=== PATIENT | male | born 1960 | race Caucasian/White ===

== ENCOUNTER 2018-05-01 12:57 | Inpatient (IN) ==
[2018-05-01] MEDS ORDERED: Morphine Inj 4 MG/ML Vial IV.PUSH ONE ×2 (13:45→14:24)
[2018-05-01 14:17] LABS: Baso % (Auto) 0.4 % (0.0-2.0); Eos # (Auto) 0.1 th/mm3 (0.0-0.4); Eos % (Auto) 1.1 % (0.0-4.0); Hematocrit 41.2 % (39.0-51.0); Hemoglobin 15.4 gm/dL (13.0-17.0); Lymph # (Auto) 2.9 th/mm3 (1.0-4.8); Lymph % (Auto) 21.3 % (9.0-44.0); Mean Corpuscular Hemoglobin 31.4 pg (27.0-34.0); Mean Corpuscular Volume 84.2 fL (80.0-100.0); Mean Platelet Volume 7.8 fL (7.0-11.0); Mono % (Auto) 7.4 % (0.0-8.0); Neut # (Auto) 9.4 th/mm3 (1.8-7.7); Neut % (Auto) 69.8 % (16.0-70.0); Platelet Count 286 th/mm3 (150-450); White Blood Count 13.5 th/mm3 (4.0-11.0)
[2018-05-01 14:22] LABS: Mean Corpuscular HGB Conc 37.3 % (32.0-36.0)
[2018-05-01 14:25] LABS: Activated Partial Thrombo Time 29.6 sec (23.4-31.7); INR 1.1 Ratio
[2018-05-01 14:32] LABS: Calcium 8.8 mg/dL (8.5-10.1); Carbon Dioxide 28.4 meq/L (21.0-32.0); Potassium 3.2 meq/L (3.5-5.1)
[2018-05-01] MEDS ORDERED: HYDROmorphone PF Inj 0.5 MG/0.5 ML Syringe IV.PUSH ONE (14:44)
--- NOTE | 2018-05-01 14:49 | ED ---
HPI General Chief Complaint: Back Pain/Injury Stated Complaint: low back pain Time Seen by Provider: 05/01/18 13:26 Source: patient Limitations: no limitations History of Present Illness HPI Narrative: Patient is a 57-year-old male with history of chronic back pain secondary to disc protrusion, who presents with complaint of worsening back pain for the last 4 days he has had loss of bowel and bladder function. He is also having numbness to the bilateral lower extremities though does have some sensation and has had difficulty walking. The numbness and difficulty walking have been since . He denies any fevers or chills. He denies any recent invasive procedures. He had MRIs back in January that showed diffuse disc disease with impingement on spinal cord but as he was not having neurologic deficits he was not having surgery at that time and pursued conservative management. MD Complaint: Reports back pain Duration: Reports constant Similar Symptoms Previously: Yes Location: Reports lumbar spine and thoracic spine Severity: severe Radiation: Reports none Relieving factors: none Associated symptoms: Reports weakness, numbness and difficulty walking Related Data Home Medications Medication Instructions Recorded Confirmed No Known Home Medications 05/01/18 05/01/18 Allergies Allergy/AdvReac Type Severity Reaction Status Date / Time No Known Allergies Allergy Verified 05/01/18 13:43 Review of Systems ROS: all other systems reviewed are negative [facility] Medical History Medical History Lower back injury (Acute) Surgical History Surgical History History of cervical spinal surgery (Acute) History of lumbar surgery (Acute) Social History Social History Substance History: No History of Abuse Second Hand Smoke Exposure: No Smoking Status: Never smoker How Often Do You Have a Drink Containing Alcohol: Never Recent Travel in [facility] within the Last 8 Weeks: No Recent Out of Country Travel within the Last 8 Weeks: No Immunization History Tetanus Immunization: Unsure Exam Narrative Exam Narrative: GENERAL: Well-appearing male that appears to be in pain SKIN: Focused skin assessment warm/dry. No rashes. Scar to the lower lumbar spine peer HEAD: Atraumatic. Normocephalic. EYES: Pupils equal and round. No scleral icterus. No injection or drainage. ENT: No nasal bleeding or discharge. Mucous membranes pink and moist. NECK: Trachea midline. No JVD. CARDIOVASCULAR: Regular rate and rhythm. No murmur appreciated. Intact and equal peripheral pulses RESPIRATORY: No accessory muscle use. Clear to auscultation. Breath sounds equal bilaterally. GASTROINTESTINAL: Abdomen soft, non-tender, nondistended. Hepatic and splenic margins not palpable. MUSCULOSKELETAL: No obvious deformities. No clubbing. No cyanosis. No edema. T and L-spine tenderness. NEUROLOGICAL: Awake and alert. No obvious cranial nerve deficits. Normal speech. Weakness and numbness to the bilateral lower extremities. PSYCHIATRIC: Appropriate mood and affect; insight and judgment normal. Course Initial Documented Vital Signs Temperature 97.3 F L 05/01/18 13:13 Pulse Rate 118 H 05/01/18 13:13 Respiratory Rate 17 05/01/18 13:13 Blood Pressure 167/83 H 05/01/18 13:13 Pulse Oximetry 98 05/01/18 13:13 Last Documented Vital Signs Temperature 97.8 F 05/02/18 08:00 Pulse Rate 75 05/02/18 08:00 Respiratory Rate 05/02/18 08:00 Blood Pressure 137/65 05/02/18 08:00 Pulse Oximetry 94 L 05/02/18 08:00 Sign Out Sign Out Data: Patient Sign Out occurred on 05/01/18 at 15:04. Patient's care was discussed, and care was transferred from Brigida Vallejo MD to John Thompson MD. Sign Out Comment: MRI pending. Will need NSGY. I made Dr wasserman aware. Last updated by Brigida Vallejo MD at 05/01/18 14:56 Post-Handoff Eval: The patient had an MRI of the cervical spine, thoracic spine, and lumbar spine performed. I discussed the patient with the on-call neurosurgeon who evaluated the patient at bedside, Dr. Wasserman, who recommends the patient be admitted to the medical service, n.p.o. after midnight on for planned surgery on the cervical and lumbar region. I discussed the patient with Dr. Goodwin who agrees with admission. Medical Decision Making MDM Narrative Medical decision making narrative: Patient is a 57-year-old male who presents with worsening of his chronic back pain. He is having neurologic deficits. On arrival I spoke with Dr. Wasserman, neurosurgeon on-call, who is aware of the patient. MRIs have been ordered stat. Patient will likely be admitted. Results pending at time of checkout. Medical Screen Exam Complete: Yes Emergency Medical Condition: Yes Medical Records Medical records reviewed: Yes I reviewed the patient's medical records. Lab Data Lab results reviewed: Yes I reviewed the patient's lab results. Result diagrams: 05/01/18 14:05 05/02/18 04:48 Lab Results 05/01/18 05/01/18 05/01/18 Range/Units 14:05 14:05 14:05 WBC 13.5 H (4.0-11.0) th/mm3 RBC 4.90 (4.50-5.90) mil/mm3 Hgb 15.4 (13.0-17.0) gm/dL Hct 41.2 (39.0-51.0) % MCV 84.2 (80.0-100.0) fL MCH 31.4 (27.0-34.0) pg MCHC 37.3 H (32.0-36.0) % RDW 14.0 (11.6-17.2) % Plt Count 286 (150-450) th/mm3 MPV 7.8 (7.0-11.0) fL Prelim Diff (Auto) Slide review pending Neut % (Auto) 69.8 (16.0-70.0) % Lymph % (Auto) 21.3 (9.0-44.0) % [place] % (Auto) 7.4 (0.0-8.0) % Eos % (Auto) 1.1 (0.0-4.0) % Baso % (Auto) 0.4 (0.0-2.0) % Neut # (Auto) 9.4 H (1.8-7.7) th/mm3 Lymph # (Auto) 2.9 (1.0-4.8) th/mm3 [place] # (Auto) 1.0 H (0.0-0.9) th/mm3 Eos # (Auto) 0.1 (0.0-0.4) th/mm3 Baso # (Auto) 0.0 (0.0-0.2) th/mm3 WBC Differential . Diff Scan Auto diff confirmed Differential Comment . PT 11.0 (9.8-11.6) sec INR 1.1 Ratio APTT 29.6 (23.4-31.7) sec Sodium 138 (136-145) meq/L Potassium 3.2 L (3.5-5.1) meq/L Chloride 102 (98-107) meq/L Carbon Dioxide 28.4 (21.0-32.0) meq/L Anion Gap 8 (5-15) meq/L BUN 17 (7-18) mg/dL Creatinine 1.12 (0.60-1.30) mg/dL Estimated GFR 68 L (>89) mL/min Random Glucose 109 H (74-106) mg/dL Calcium 8.8 (8.5-10.1) mg/dL Magnesium (1.5-2.5) mg/dL Urine Color (Yellw/Straw) Urine Clarity (Clear) Urine pH (5.0-8.5) Ur Specific [place] (1.002-1.035) Urine Protein (Neg-Trace) mg/dL Urine Glucose (UA) (Negative) mg/dL Urine Ketones (Negative) mg/dL Urine Occult Blood (Negative) Urine Nitrate (Negative) Urine Bilirubin (Negative) Urine Urobilinogen (Less than 2) mg/dL Ur Leukocyte Esterase (Negative) Urine RBC (0-3) /hpf Urine WBC (0-5) /hpf Ur Squamous Epith Cells (0-5) /hpf Micro UA Comment Ur Microscopic Review Urine Culture Comments 05/01/18 05/02/18 Range/Units 21:00 04:48 WBC (4.0-11.0) th/mm3 RBC (4.50-5.90) mil/mm3 Hgb (13.0-17.0) gm/dL Hct (39.0-51.0) % MCV (80.0-100.0) fL MCH (27.0-34.0) pg MCHC (32.0-36.0) % RDW (11.6-17.2) % Plt Count (150-450) th/mm3 MPV (7.0-11.0) fL Prelim Diff (Auto) Neut % (Auto) (16.0-70.0) % Lymph % (Auto) (9.0-44.0) % [place] % (Auto) (0.0-8.0) % Eos % (Auto) (0.0-4.0) % Baso % (Auto) (0.0-2.0) % Neut # (Auto) (1.8-7.7) th/mm3 Lymph # (Auto) (1.0-4.8) th/mm3 [place] # (Auto) (0.0-0.9) th/mm3 Eos # (Auto) (0.0-0.4) th/mm3 Baso # (Auto) (0.0-0.2) th/mm3 WBC Differential Diff Scan Differential Comment PT (9.8-11.6) sec INR Ratio APTT (23.4-31.7) sec Sodium 137 (136-145) meq/L Potassium 3.2 L (3.5-5.1) meq/L Chloride 100 (98-107) meq/L Carbon Dioxide 29.3 (21.0-32.0) meq/L Anion Gap 8 (5-15) meq/L BUN 17 (7-18) mg/dL Creatinine 1.02 (0.60-1.30) mg/dL Estimated GFR 75 L (>89) mL/min Random Glucose 120 H (74-106) mg/dL Calcium 8.8 (8.5-10.1) mg/dL Magnesium 2.2 (1.5-2.5) mg/dL Urine Color Straw (Yellw/Straw) Urine Clarity Clear (Clear) Urine pH 7.0 (5.0-8.5) Ur Specific [place] 1.004 (1.002-1.035) Urine Protein Negative (Neg-Trace) mg/dL Urine Glucose (UA) Negative (Negative) mg/dL Urine Ketones Trace H (Negative) mg/dL Urine Occult Blood Small H (Negative) Urine Nitrate Negative (Negative) Urine Bilirubin Negative (Negative) Urine Urobilinogen Less than 2 (Less than 2) mg/dL Ur Leukocyte Esterase Negative (Negative) Urine RBC Less than 1 (0-3) /hpf Urine WBC Less than 1 (0-5) /hpf Ur Squamous Epith Cells 2 (0-5) /hpf Micro UA Comment Culture not ind Ur Microscopic Review Not Reportable Urine Culture Comments Culture not ind Imaging Data Radiologist's impression: Cervical Spine X-Ray 05/01/18 00:00 CONCLUSION: 1. Status post solid anterior fusion at the C4-5 level. 2. Bridging anterior osteophyte C4 level. Lumbar Spine X-Ray 05/01/18 00:00 CONCLUSION: No abnormal mobility. Cervical Spine MRI 05/01/18 13:43 CONCLUSION: 1. Significant thecal sac stenosis and flattening of the spinal cord at C5-6. 2. Slight thecal sac stenosis C3-4 to C7. 3. Neural foraminal compromise bilateral C5-6 and C6-C7. Thoracic Spine MRI 05/01/18 13:43 CONCLUSION: 1. Mild degenerative disc changes with no evidence of disc protrusion or spinal stenosis. Lumbar Spine MRI 05/01/18 13:44 CONCLUSION: 1. Slight overall thecal sac stenosis L1-2. 2. Moderate overall thecal sac stenosis L2-3 and L3-4. 3. Significant thecal sac stenosis L4-5. 4. Bilateral neural foraminal compromise L2-3, L3-4, L4-5, L5-S1. Discharge Plan Discharge Disposition Patient Disposition: ED Admit(ED Internal Use Only) Discharge Condition Condition: Stable Discharge Order Discharge Orders: ED Use Only Admit Order (Routine); Ordered 05/01/18 Ordered By: John Thompson Discharge Details Diagnosis: Intractable back pain Physicians Team ED Provider: John Thompson Primary Care Provider: Lazaro Lowry Attending Provider: Jimenez Goodwin Other Providers: Madan Wasserman Status ED Status: Left Department Discharge Information Discharge Date/Time: 05/01/18 22:21
[2018-05-01] MEDS ORDERED: Potassium Chlor 20 mEq Premix 20 MEQ/100 ML PIGGYBACK IV.SIG ONE (17:00)
--- NOTE | 2018-05-01 17:58 | MR ---
EXAM DATE: 05/01/2018 5:48 PM EST AGE/SEX: 57 years / Male INDICATIONS: Pain. CLINICAL DATA: This is the patient's initial encounter. Patient reports that signs and symptoms have been present for 1 week and indicates a pain score of 10/10. MEDICAL/SURGICAL HISTORY: None. . Cervical and lumbar sx COMPARISON: No prior exams available for comparison. TECHNIQUE: Multiplanar, multisequence MRI of the lumbar spine was performed without contrast. Patie nt was scanned in a sitting position; neutral, flexion, and extension scans were performed in the sa gittal plane. FINDINGS: The most caudal-appearing lumbar vertebra is numbered as L5. The marrow signal appears intact. No si gnificant compression deformities, spondylolisis, or spondylolesthesis is seen. Approximate 5.[address] is present in the right kidney. L1-L2: Central disc herniation is present indents the anterior portion of the thecal sac causes mild overall thecal sac stenosis. L2-L3: There is slight neural foramina compromise bilaterally due to bulging disc and hypertrophic c hanges. There is moderate overall thecal sac stenosis due to central disc/osteophyte complex and hypertrophic changes. L3-L4: There is slight neural foramina compromise bilaterally due to bulging disc and hypertrophic c hanges. There is moderate overall thecal sac stenosis due to central disc bulge and hypertrophic changes. Th ere is slight bilateral facet arthrosis. L4-L5: There is slight neural foramina compromise bilaterally due to bulging disc and hypertrophic c hanges. There is moderate to severe overall thecal sac stenosis due to central disc/osteophyte complex and hy pertrophic changes. There is moderate bilateral facet arthrosis. L5-S1: There is moderate neural foramina compromise bilaterally due to bulging disc and hypertrophic changes. There is significant facet arthrosis at this level. There is anterior extradural impression and effacement of the anterior CSF space due to bulging disc and hypertrophic changes, however overall no significant thecal sac stenosis is seen. CONCLUSION: 1. Slight overall thecal sac stenosis L1-2. 2. Moderate overall thecal sac stenosis L2-3 and L3-4. 3. Significant thecal sac stenosis L4-5. 4. Bilateral neural foraminal compromise L2-3, L3-4, L4-5, L5-S1. Electronically signed by: Lion Valentine MD Board Certified Radiologist 05/01/2018 5:57 PM EST
--- NOTE | 2018-05-01 18:05 | MR ---
EXAM DATE: 05/01/2018 5:46 PM EST AGE/SEX: 57 years / Male INDICATIONS: . Degeneration disc CLINICAL DATA: This is the patient's initial encounter. Patient reports that signs and symptoms have been present for 1 week and indicates a pain score of 10/10. MEDICAL/SURGICAL HISTORY: None. . Cervical and Lumbar sx COMPARISON: No prior exams available for comparison. TECHNIQUE: Multiplanar, multisequence MRI examination of the cervical spine was performed without co ntrast. FINDINGS: The marrow signal appears intact, and the spinal cord appears intact for technique. Surgical screws traverse the bodies of C4 and C5 with a plate placed anteriorly and evidence for a nterior fusion and fusion appears solid. C2-C3: No appreciable compromise to the thecal sac, exiting nerve roots are seen. The neural foramin a are patent bilaterally. No appreciable thecal sac stenosis is seen. C3-C4: Moderate degenerative changes are present in the disc space and facets. There is slight overall thecal sac stenosis due to bulging disc/osteophyte complex and hypertrophic c hanges, however overall no significant thecal sac stenosis is seen. C4-C5: No appreciable compromise to the thecal sac, exiting nerve roots are seen. The neural foramin a are patent bilaterally. No appreciable thecal sac stenosis is seen. Hypertrophic changes indenting the anterior portion of the thecal sac slightly compromising the anterior CSF space without any signi ficant thecal sac stenosis. C5-C6: There is significant overall thecal sac stenosis with flattening of the spinal cord due to bu lging disc/central disc osteophyte complex and hypertrophic changes. There is moderate neural foramina compromise bilaterally due to bulging disc and hypertrophic changes . C6-C7: There is slight overall thecal sac stenosis without any cord compromise due to central disc/ osteophyte complex and hypertrophic changes. Significant degenerative changes are present in the disc space and facets. There is slight neural foramina compromise bilaterally due to bulging disc and hypertrophic changes. C7-T1: No appreciable compromise to the thecal sac, exiting nerve roots are seen. The neural forami na are patent bilaterally. No appreciable thecal sac stenosis is seen. CONCLUSION: 1. Significant thecal sac stenosis and flattening of the spinal cord at C5-6. 2. Slight thecal sac stenosis C3-4 to C7. 3. Neural foraminal compromise bilateral C5-6 and C6-C7. Electronically signed by: Lion Valentine MD Board Certified Radiologist 05/01/2018 6:04 PM EST
--- NOTE | 2018-05-01 18:16 | MR ---
EXAM DATE: 05/01/2018 6:08 PM EST AGE/SEX: 57 years / Male INDICATIONS: Neck and back pain. CLINICAL DATA: This is the patient's initial encounter. Patient reports that signs and symptoms have been present for 1 week and indicates a pain score of 10/10. MEDICAL/SURGICAL HISTORY: None. . Cervical and Lumbar COMPARISON: [facility] [place], MR CERVICAL SPINE W/O CONTRAST, 05/01/2018. . TECHNIQUE: Multiplanar, multisequence MRI of the thoracic spine was performed. FINDINGS: Vertebrae: Normal vertebral body height. Homogeneous marrow signal for cavernous hemangiomas in the T4, T7 and T8 vertebral bodies.. Alignment: Normal. On Discs: There are mild degenerative disc changes with anterior spurring and ryann iccation. High signal is noted in the disc at the T11-12 level appears benign. Cord: Normal position and configuration. T1-T2: The thecal sac has a normal diameter. No evidence of disc bulge or protrusion. T2-T3: The thecal sac has a normal diameter. No evidence of disc bulge or protrusion. T3-T4: The thecal sac has a normal diameter. No evidence of disc bulge or protrusion. T4-T5: The thecal sac has a normal diameter. No evidence of disc bulge or protrusion. T5-T6: The thecal sac has a normal diameter. No evidence of disc bulge or protrusion. T6-T7: The thecal sac has a normal diameter. No evidence of disc bulge or protrusion. T7-T8: The thecal sac has a normal diameter. No evidence of disc bulge or protrusion. T8-T9: The thecal sac has a normal diameter. No evidence of disc bulge or protrusion. T9-T10: The thecal sac has a normal diameter. No evidence of disc bulge or protrusion. T10-T11: The thecal sac has a normal diameter. No evidence of disc bulge or protrusion. T11-T12: The thecal sac has a normal diameter. No evidence of disc bulge or protrusion. T12-L1: The thecal sac has a normal diameter. No evidence of disc bulge or protrusion. CONCLUSION: 1. Mild degenerative disc changes with no evidence of disc protrusion or spinal stenosis. Electronically signed by: Seymour Chan MD Board Certified Radiologist 05/01/2018 6:15 PM EST
--- NOTE | 2018-05-01 18:20 | XR ---
EXAM DATE: 05/01/2018 6:16 PM EST AGE/SEX: 57 years / Male INDICATIONS: Post ACDF. . CLINICAL DATA: This is the patient's initial encounter. Patient reports that signs and symptoms have been present for 7 - 11 months and indicates a pain score of 10/10. MEDICAL/SURGICAL HISTORY: None. None. COMPARISON: No prior exams available for comparison. FINDINGS: AP and lateral views of the cervical spine were obtained as well as odontoid views and demonstrate pa tient is status post anterior cervical fusion at the C4-5 level with anterior screw plate fixation de vice. There is bone grafting material in the interspace which is well incorporated. There is a large area of bridging osteophyte along the anterior longitudinal ligament at the C3-4 level. There is ossi fication anterior longitudinal ligament at the C6-7 level as well. There is no acute fracture or xochitl lignment. The dens is intact. CONCLUSION: 1. Status post solid anterior fusion at the C4-5 level. 2. Bridging anterior osteophyte C4 level. Electronically signed by: Seymour Chan MD Board Certified Radiologist 05/01/2018 6:18 PM EST
--- NOTE | 2018-05-01 18:23 | XR ---
EXAM DATE: 05/01/2018 6:19 PM EST AGE/SEX: 57 years / Male INDICATIONS: Lower back pain, old injury, evaluate mobility. CLINICAL DATA: This is the patient's initial encounter. Patient reports that signs and symptoms have been present for 3 months and indicates a pain score of 10/10. MEDICAL/SURGICAL HISTORY: None. None. COMPARISON: [facility] [place], MR LUMBAR SPINE W/O CONTRAST, 05/01/2018. . FINDINGS: Multiple lateral views of the lumbar spine were obtained with flexion-extension positioning. There ar e diffuse mild hypertrophic changes with anterior osteophyte formation. The disc space heights are we ll preserved. There is anatomic. Patient achieved only limited flexion and extension and there is no abnormal mobility. Degenerative changes are noted involving the lower facet joints. There is mild ost eopenia. CONCLUSION: No abnormal mobility. Electronically signed by: Seymour Chan MD Board Certified Radiologist 05/01/2018 6:22 PM EST
--- NOTE | 2018-05-01 18:41 | P.CONNS ---
History of Present Illness Service: ED Primary Care Provider: Lazaro Lowry Chief Complaint: Back pain History of Present Illness: 57yoM s/p C4/5 [place]CD[address] [place] [address] Underwood. Has had back pain since the accident at that time that lead to that surgery. He has had worsening back pain over the past several months (with MRI obtained in January) and over the past week, has had some episodes where he feels he has been leaking urine. Uses a walker and feels worse when he is sitting. Does not complain of neck pain and has had weakness in the arms for several years. Came to ED with complaints of bladder control. PMFSH - History History Provided By: Patient - Medical History Medical History: Medical History (Last Reviewed 05/01/18 @ 14:47 by Brigida Vallejo MD) Lower back injury - Surgical History Surgical History: Surgical History (Last Reviewed 05/01/18 @ 14:47 by Brigida Vallejo MD) History of cervical spinal surgery History of lumbar surgery - Tobacco History Smoking Status: Never smoker - Alcohol History How Often Do You Have a Drink Containing Alcohol: Never - Substance Use History Substance History: No History of Abuse - Travel History Recent Travel in the [place] Within the Last 8 Weeks: No Recent Travel Out of the Country Within the Last 8 Weeks: No - Immunization History Tetanus Immunization: Unsure Medications and Allergies Active Medications: Active Medications Potassium Chloride (Kcl 20 Meq Premix Inj) 20 meq in 100 mls @ 50 mls/hr IV.SIG ONCE ONE Stop: 05/01/18 18:59 Allergies Allergy/AdvReac Type Severity Reaction Status Date / Time No Known Allergies Allergy Verified 05/01/18 13:43 Home Medications Medication Instructions Recorded Confirmed Type No Known Home Medications 05/01/18 05/01/18 History Exam Vital signs: Vital Signs 05/01/18 13:13 05/01/18 13:16 Temperature 97.3 F L Pulse Rate 118 H 100 H Respiratory Rate 17 18 Blood Pressure 167/83 H 156/118 H Pulse Oximetry 98 100 Intake & Output 04/30/18 05/01/18 05/01/18 18:59 06:59 18:59 Weight 128.367 kg Narrative: A&O x 3 CN II-XII intact Motor 4/5 in UE bilaterally and 4/5 in LE bilaterally Reflexes 3+ upper and lower Babinski/Miller equivocal, No clonus Painful to dorsiflex both his feet Results - Laboratory Findings CBC and BMP: 05/01/18 14:05 05/01/18 14:05 Abnormal lab findings: Abnormal Labs 05/01/18 05/01/18 14:05 14:05 WBC 13.5 H MCHC 37.3 H Neut # (Auto) 9.4 H [place] # (Auto) 1.0 H Potassium 3.2 L Estimated GFR 68 L Random Glucose 109 H Assessment and Plan - Plan MRI C-spine: tight stenosis adjacent to prior fusion at C5/6 level posteriorly and anteriorly with cord signal change 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 Plan: Sunday05/03/18 OR for posterior cervical decompression and fusion C5/6 + lumbar decompression L2/3, L3/4, and L4/5 laminectomies Neuromonitoring, prone in pins Patient understands risks of surgery and wishes to proceed. Admit for Pain control-- appreciate help of hospitalist service [place] J collar ordered-- patient may wear if it makes him more comfortable but this is not necessary Patient will need likely need rehab after surgery / PT/OT, may ambulate as tolerated with assistance before and afterward
[2018-05-01] MEDS ORDERED: Bisacodyl 10 MG Supp RECTAL PRN (19:13)
[2018-05-01] MEDS ORDERED: Temazepam 15 MG Capsule PO PRN (19:13)
--- NOTE | 2018-05-01 19:25 | P.HPIM ---
History of Present Illness Primary Care Physician: Lazaro Lowry History of Present Illness: Pt is 57 yo with hx ACDF c5/6 and lumbar surgery. He has had progressive lower extremity weakness and now some urine incontinence and pain. MRI c and L spine in ED show concern for cervical myelopathy and severe lumbar stenosis. Seen by NSG in ED and pt to be admitted for surgical procedures on Sunday. Pt denies any cardiac or pulmonary diseases. PMH: cervical acdf lumbar surgery finger tip amputation. SH; no etoh/tob FH: NC Allergy. Pcn. Home meds. denies any prescribed or OTC meds. Diagnosis (1) Cervical myelopathy: (2) Lumbar stenosis: Medications and Allergies Allergies Allergy/AdvReac Type Severity Reaction Status Date / Time No Known Allergies Allergy Verified 05/01/18 13:43 Home Medications Medication Instructions Recorded Confirmed Type No Known Home Medications 05/01/18 05/01/18 History Active Medications: Active Medications Al Hydroxide/Mg Hydroxide (Milk Of Magnesia Liq) 30 ml PO Q12H PRN PRN Reason: Mild Constipation Bisacodyl (Dulcolax Supp) 10 mg RECTAL DAILY PRN PRN Reason: SEVERE CONSITIPATION Hydromorphone HCl (Dilaudid Pf Inj) 1 mg IV.PUSH Q4H PRN PRN Reason: pain 5-10 Lactulose (Lactulose Liq) 30 ml PO DAILY PRN PRN Reason: SEVERE CONSITIPATION Ondansetron HCl (Zofran Inj) 4 mg IV.PUSH Q6H PRN PRN Reason: NAUSEA OR VOMITING Sennosides (Senokot) 17.2 mg PO Q12H PRN PRN Reason: Moderate Constipation Sodium Chloride (Ns Flush) 2 ml IV.FLUSH BID TANA Sodium Chloride (Ns Flush) 2 ml IV.FLUSH PRN PRN PRN Reason: FLUSH AFTER USING IV ACCESS Temazepam (Restoril) 15 mg PO HS PRN PRN Reason: INSOMNIA Physical Exam Vital signs: Last Vital Signs Temp 97.3 F L 05/01/18 13:13 Pulse 81 05/01/18 18:59 Resp 18 05/01/18 18:59 BP 168/72 H 05/01/18 18:59 Pulse Ox 100 05/01/18 18:59 Narrative: sitting on edge bed heart reg lung cta abd s/nt ext no edema Results Labs CBC & Chem 7: 05/01/18 14:05 05/01/18 14:05 Caprini VTE Risk Assessment Caprini VTE Risk Assessment: Moderate/High Risk (score >= 2) Caprini Risk Assessment Model: Point Value = 1 Point Value = 2 Point Value = 3 Point Value = 5 Age 41-60 Minor surgery BMI > 25 kg/m2 Swollen legs Varicose veins or History of unexplained or recurrent spontaneous Oral contraceptives or hormone replacement Sepsis (< 1 month) Serious lung disease, including pneumonia (< 1 month) Abnormal pulmonary function Acute myocardial infarction Congestive heart failure (< 1 month) History of inflammatory bowel disease Medical patient at bed rest Age 61-74 Arthroscopic surgery Major open surgery (> 45 min) Laparoscopic surgery (> 45 min) Malignancy Confined to bed (> 72 hours) Immobilizing plaster cast Central venous access Age >= 75 History of VTE Family history of VTE Factor V Leiden Prothrombin [id number] Lupus anticoagulant Anticardiolipin antibodies Elevated serum homocysteine Heparin-induced thrombocytopenia Other congenital or acquired thrombophilia Stroke (< 1 month) Elective arthroplasty Hip, pelvis, or leg fracture Acute spinal cord injury (< 1 month) Prophylaxis Regimen: Total Risk Factor Score Risk Level Prophylaxis Regimen 0-1 Low Early ambulation 2 Moderate Order ONE of the following: *Sequential Compression Device (SCD) *Heparin 5000 units SQ BID 3-4 Higher Order ONE of the following medications: *Heparin 5000 units SQ TID *Enoxaparin/Lovenox 40 mg SQ daily (WT < 150 kg, CrCl > 30 mL/min) *Enoxaparin/Lovenox 30 mg SQ daily (WT < 150 kg, CrCl > 10-29 mL/min) *Enoxaparin/Lovenox 30 mg SQ BID (WT < 150 kg, CrCl > 30 mL/min) AND/OR *Sequential Compression Device (SCD) 5 or more Highest Order ONE of the following medications: *Heparin 5000 units SQ TID (Preferred with Epidurals) *Enoxaparin/Lovenox 40 mg SQ daily (WT < 150 kg, CrCl > 30 mL/min) *Enoxaparin/Lovenox 30 mg SQ daily (WT < 150 kg, CrCl > 10-29 mL/min) *Enoxaparin/Lovenox 30 mg SQ BID (WT < 150 kg, CrCl > 30 mL/min) AND *Sequential Compression Device (SCD) Assessment and Plan Assessment (1) Cervical myelopathy: Code(s): G95.9 - Disease of spinal cord, unspecified Status: Acute (2) Lumbar stenosis: Code(s): M48.061 - Spinal stenosis, lumbar region without neurogenic claudication Status: Acute Plan 1. cervical myelopathy 2. severe lumbar spinal stenosis Discussed with NSG dr Schwartz. plan to OR on Sunday. cervical decompression/fusion c5/6 and laminectomies from L2-5 dvt prophylaxis prn pain med control PT evaluation plan for rehab after hospitalizaton preop ekg pending. f/u labs. pt denies any cardiac dz or any pulmonary dz.
[2018-05-01] MEDS: HYDROmorphone PF Inj 2 MG/ML Vial IV.PUSH PRN (20:38)
[2018-05-01 21:19] LABS: Bilirubin,Urine Negative (Negative); Clarity,Urine Clear (Clear); Color,Urine Straw (Yellw/Straw); Glucose,Urine (UA) Negative (Negative); Leukocyte Esterase,Urine Negative (Negative); Nitrite,Urine Negative (Negative); Specific Gravity,Urine 1.004 (1.002-1.035); Squamous Epithelial Cell,Urine 2 /hpf (0-5)
[2018-05-02 05:35] LABS: Calcium 8.8 mg/dL (8.5-10.1); Carbon Dioxide 29.3 meq/L (21.0-32.0); Magnesium 2.2 mg/dL (1.5-2.5); Potassium 3.2 meq/L (3.5-5.1)
[2018-05-02] MEDS: HYDROmorphone PF Inj 2 MG/ML Vial IV.PUSH PRN ×3 (06:08→20:59)
[2018-05-02] MEDS ORDERED: Vancomycin Inj 1,000 MG in Sodium Chlor 0.9% Inj 250 ML IV.SIG SCH (10:19)
--- NOTE | 2018-05-02 11:07 | P.PNNS ---
Subjective Interval history: Pain stable. Physical Exam Vital signs: Vital Signs 05/01/18 13:13 05/01/18 13:16 05/01/18 18:59 Temperature 97.3 F L Pulse Rate 118 H 100 H 81 Respiratory Rate 17 18 18 Blood Pressure 167/83 H 156/118 H 168/72 H Pulse Oximetry 98 100 100 05/01/18 19:00 05/01/18 21:00 05/01/18 21:20 Temperature Pulse Rate 79 83 Respiratory Rate 18 18 18 Blood Pressure 162/85 H 130/67 Pulse Oximetry 99 05/02/18 00:00 05/02/18 08:00 Temperature 97.4 F L 97.8 F Pulse Rate 90 75 Respiratory Rate 18 19 Blood Pressure 142/80 H 137/65 Pulse Oximetry 95 94 L Intake & Output 05/01/18 05/02/18 05/02/18 18:59 06:59 18:59 Intake Total 550 / 550 Balance 550 / 550 Weight 128.367 kg 130.3 kg Intake: IV 100 / 100 KCl 20 mEq Premix Inj 20 meq In 100 / 100 100 ml @ 50 mls/hr IV.SIG ONCE ONE Rx#:[id number] Oral 450 / 450 Other: # Voids 2 Date of Last Bowel Movement 04/30/18 Weight On Admission 130.3 kg Narrative: A&O x 3 CN II-XII intact Motor 4/5 in UE bilaterally and 4/5 in LE bilaterally Reflexes 3+ upper and lower Babinski/Miller equivocal, No clonus Painful to dorsiflex both his feet Assessment and Plan - Plan MRI C-spine: tight stenosis adjacent to prior fusion at C5/6 level posteriorly and anteriorly with cord signal change 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 Plan: Sunday05/03/18 OR for posterior cervical decompression and fusion C5/6 + lumbar decompression L2/3, L3/4, and L4/5 laminectomies Neuromonitoring, prone in pins Patient understands risks of surgery and wishes to proceed. Consent signed orders placed for npo, hibiclens bath, vanco OCTOR. Admit for Pain control-- appreciate help of hospitalist service -- appears stable and comfortable [place] J collar ordered-- patient may wear if it makes him more comfortable but this is not necessary -- appears not helping tremendously Patient will need likely need rehab after surgery / PT/OT, may ambulate as tolerated with assistance before and afterward
--- NOTE | 2018-05-02 11:17 | P.PNIM ---
Subjective Interval history: doing ok. no complaints Physical Exam Vital signs: Last Vital Signs Temp 97.8 F 05/02/18 08:00 Pulse 75 05/02/18 08:00 Resp 19 05/02/18 08:00 BP 137/65 05/02/18 08:00 Pulse Ox 94 L 05/02/18 08:00 Narrative: heart reg lung cta abd s/nt ext no edema Results Labs CBC & Chem 7: 05/01/18 14:05 05/02/18 04:48 Assessment and Plan Assessment (1) Cervical myelopathy: Code(s): G95.9 - Disease of spinal cord, unspecified Status: Acute (2) Lumbar stenosis: Code(s): M48.061 - Spinal stenosis, lumbar region without neurogenic claudication Status: Acute Plan 1. cervical myelopathy 2. severe lumbar spinal stenosis pt denies any cardiac dz or any pulmonary dz. Discussed with NSG dr Schwartz. plan to OR on Sunday. cervical decompression/fusion c5/6 and laminectomies from L2-5 dvt prophylaxis prn pain med control PT evaluation plan for rehab after hospitalizaton no medical contraindication to proceeding to OR as planned. Progress Note: Quality VTE Deep Vein Thrombosis/Pulmonary Embolism Present on Admission: No
[2018-05-02] MEDS ORDERED: Potassium Chloride 10 MEQ ER Capsule PO ONE (12:00)
--- NOTE | 2018-05-02 16:12 | ECG ---
Date Performed: 05/02/2018 Time Performed: 06:04:26 PTAGE: 57 years EKG: Sinus rhythm NORMAL ECG NO PREVIOUS TRACING DOCTOR: Raman Marinelli Interpretating Date/Time 05/02/2018 16:10:07
[2018-05-02] MEDS ORDERED: Chlorhexidine 4% Topical 120 APPLIC/120 ML Bottle TOPICAL ONE (20:00)
[2018-05-03] MEDS: HYDROmorphone PF Inj 2 MG/ML Vial IV.PUSH PRN ×2 (00:47→04:49)
[2018-05-03] MEDS ORDERED: Bupivacaine/Epinephrine 0.5% Inj 50 ML Vial ONE (06:59)
[2018-05-03] MEDS ORDERED: Thrombin Topical Soln 5,000 UNIT Vial TOPICAL ONE (07:00)
[2018-05-03] MEDS ORDERED: Lidocaine 1% Inj 50 ML Vial ONE (07:00)
[2018-05-03] MEDS ORDERED: Gelatin Size 100 Topical Foam ONE ×3 (07:00→08:06)
[2018-05-03] MEDS ORDERED: Propofol Inj 500 MG/50 ML Vial ONE ×2 (08:50→12:02)
[2018-05-03] MEDS ORDERED: fentaNYL Citrate Inj 100 MCG/2 ML Ampul ONE (13:52)
[2018-05-03] MEDS ORDERED: *morphine SULFATE 4 MG/ML PERIprocedure ONLY ONE ×2 (14:06→14:28)
[2018-05-03] MEDS ORDERED: Naloxone Inj 0.4 MG/ML Vial IV.PUSH PRN (14:09)
[2018-05-03 14:47] LABS: Baso % (Auto) 0.2 % (0.0-2.0); Hematocrit 34.5 % (39.0-51.0); Hemoglobin 12.2 gm/dL (13.0-17.0); Lymph # (Auto) 0.8 th/mm3 (1.0-4.8); Lymph % (Auto) 5.9 % (9.0-44.0); Mean Corpuscular HGB Conc 35.4 % (32.0-36.0); Mean Corpuscular Hemoglobin 30.6 pg (27.0-34.0); Mean Corpuscular Volume 86.2 fL (80.0-100.0); Mean Platelet Volume 7.6 fL (7.0-11.0); Mono # (Auto) 0.3 th/mm3 (0.0-0.9); Mono % (Auto) 2.3 % (0.0-8.0); Neut # (Auto) 12.6 th/mm3 (1.8-7.7); Neut % (Auto) 91.6 % (16.0-70.0); Platelet Count 225 th/mm3 (150-450); White Blood Count 13.7 th/mm3 (4.0-11.0)
[2018-05-03] MEDS ORDERED: Morphine Inj 30 MG/30 ML PCA.VIAL PCA ONE (14:50)
[2018-05-03] MEDS: Morphine Inj 30 MG/30 ML PCA.VIAL PCA PRN (15:05)
--- NOTE | 2018-05-03 15:22 | P.OP ---
- Preoperative Diagnosis (1) Cervical myelopathy - Postoperative Diagnosis (1) Cervical myelopathy Date of procedure: 05/03/18 Procedure: C3-7 Laminectomy C3-T1 posterior spinal fusion C3, C4, C5, C6 lateral mass screws 3.5mm x 12mm T1 4.0mm x 28 x 2 Implants: [employer] Anesthesia: GETA Surgeon: Madan Schwartz MD Order Control Clerk Blood Bank: Raul Brown MD of Neurosurgery Two staff surgeons were required due to complexity of the case and the need to expedite surgery. Estimated blood loss (mL): 500 Operation and Findings: Indications: 57yoM with progressive difficulty ambulating and tight cervical stenosis with myelopathy, prior C4/5 ACDF 1998. Decompression and fusion is indicated. Description of Procedure: Patient was brought to main OR and the procedure was done under general anesthesia. Baseline SSEP were taken prior to flip and maintained throughout the case. Collar was placed and the patient was placed in Kelly pins, then gently rolled prone and fixated with all pressure points padded. Midline of cervical spine was clipped, then prepped and draped in the usual sterile fashion. Fluoroscopy was used to plan an incsion from C3 to T1. This was infiltrated with local, then opened sharply with subperiosteal dissection using monopolar cautery to expose C3 to T1 bilaterally. T1 pedicle screws were placed using drill, tap, method of 4.0 x 28mm and fluoroscopic guidance. Bone edges eburnated, then lateral mass screws placed at C3, C4, C5 and C6 bilaterally using 3.5 x 12mm screws x 8. These were connected with 110mm rods which were bent to lordosis and secured with final set screws and torque tightened. Laminectomy performed from C7 to C3 using drill and punch rongeurs. Thecal sac appeared decompressed. Autograft and allograft placed along the rods laterally. Thrombin gelfoam and floseal placed over the exposed dura to control epidural bleeding. Wound irrigated with bacitracin irrigation prior to closure and a 7-portuguese drain placed and secured with nylon. Wound closed in layers 0 Vicyrl for deep layers and interrupted 2-0 and 3-0 Vicryl for subcutaneous, with rishi for skin. Sterile dressings applied. Patient returned supine, taken out of pins, extubated and taken to recovery in stable condition, moving all extremities with baseline strength. There were no periprocedural complications, all sponge and needle counts were correct. Dr. Schwartz was present and scrubbed for the entire procedure. Dr. Brown was scrubbed for the joy portions from dissection, all instrumentation and decompression to beginning of closure. Two staff surgeons were required due to complexity of the case and the need to expedite operating time. EBL 500cc.
--- NOTE | 2018-05-03 16:02 | XR ---
EXAM DATE: 05/03/2018 3:58 PM EST AGE/SEX: 57 years / Male INDICATIONS: Posterior fusion with screws and rods C3 to T1 with laminectomy. CLINICAL DATA: This is the patient's subsequent encounter. Patient reports that signs and symptoms h ave been present for 2 days and indicates a pain score of Nonresponsive. MEDICAL/SURGICAL HISTORY: None. Fusion, cervical. COMPARISON: No prior exams available for comparison. FINDINGS: Intraoperative study demonstrates anterior fusion at C4-5 and posterior stabilization hardw are and screws extending from C3 to cervicothoracic junction level. CONCLUSION: Intraoperative examination. Electronically signed by: Lion Valentine MD Board Certified Radiologist 05/03/2018 4:01 PM EST
[2018-05-03 17:12] LABS: Calcium 7.9 mg/dL (8.5-10.1); Carbon Dioxide 29.9 meq/L (21.0-32.0); Magnesium 2.1 mg/dL (1.5-2.5)
[2018-05-03] MEDS ORDERED: Magnesium Sulfate Inj 4 GM in Sodium Chlor 0.9% Inj 92 ML IV.SIG PRN (17:14)
[2018-05-03] MEDS ORDERED: Sodium Phosphate Inj 30 MMOL in Sodium Chlor 0.9% Inj 250 ML IV.SIG PRN (17:14)
[2018-05-03] MEDS ORDERED: Potassium Phosphate Inj 30 MMOL in Sodium Chlor 0.9% Inj 250 ML IV.SIG PRN (17:14)
[2018-05-03] MEDS ORDERED: Potassium Phosphate 500 MG Soluble Tablet PO PRN ×2 (17:14)
[2018-05-03] MEDS ORDERED: Magnesium Sulfate Inj 2 GM in Sodium Chlor 0.9% Inj 96 ML IV.SIG PRN (17:14)
[2018-05-03] MEDS ORDERED: Phenol 1.4% 180 ML Spray Bottle OROPHARYNG PRN (17:14)
[2018-05-03] MEDS ORDERED: Magnesium Oxide 400 MG Tablet PO PRN (17:14)
[2018-05-03] MEDS ORDERED: Potassium Chloride Liq 20 MEQ/15 ML UDC PO PRN ×2 (17:14)
[2018-05-03] MEDS ORDERED: Potassium Chlor 20 mEq Premix 20 MEQ/100 ML PIGGYBACK IV.SIG PRN ×2 (17:14)
[2018-05-03] MEDS ORDERED: Potassium Chlor 40 mEq Premix 40 MEQ/100 ML PIGGYBACK IV.SIG PRN ×2 (17:14)
--- NOTE | 2018-05-03 17:22 | P.CONCC ---
History of Present Illness Service: [facility] Consult date: 05/03/18 Requesting Physician: Madan Schwartz Reason for Consult: C3-T1 fusion Primary Care Provider: Lazaro Lowry Chief Complaint: Back pain History of Present Illness: 57yM transferred to [facility], POD #0 s/p C3-7 laminectomy, C3-T1 posterior spinal fusion, C4-6 lateral mass screws, and T1 lateral mass screw for severe cervical spinal stenosis with myelopathy. The patient has a history of difficulty awakening from anesthesia in the past, but was successfully extubated in PACU without difficulty. He was transferred to [facility] for close airway monitoring after extensive surgery. The patient is currently awake and alert, offers no complaints other than a "dry mouth and sore throat". 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 Review of Systems All other systems reviewed negative except as stated in HPI Constitutional: Denies fever(s) Eyes: Denies blurry vision Ears, Nose, Mouth, and Throat: Reports sore throat Cardiovascular: Denies chest pain Gastrointestinal: Denies abdominal pain, Denies nausea Musculoskeletal: Reports back pain, Reports neck pain Neurologic: Denies confusion Psychiatric: Denies confusion PMFSH - History History Provided By: Patient - Medical History Medical History: Medical History (Last Reviewed 05/03/18 @ 17:18 by Lilly Yoder DO) Lower back injury - Surgical History Surgical History: Surgical History (Last Reviewed 05/03/18 @ 17:18 by Lilly Yoder DO) History of cervical spinal surgery History of lumbar surgery - Social History I have reviewed the patient's Social History: Yes - Tobacco History Second Hand Smoke Exposure: No Smoking Status: Never smoker - Alcohol History How Often Do You Have a Drink Containing Alcohol: Never - Substance Use History Substance History: No History of Abuse - Travel History Recent Travel in the [place] Within the Last 8 Weeks: No Recent Travel Out of the Country Within the Last 8 Weeks: No - Immunization History Tetanus Immunization: Unsure Medications and Allergies Active Medications: Active Medications Hydrocodone Bitart/Acetaminophen ([place] 10/325) 1 tab PO Q4H PRN PRN Reason: PAIN SCALE 1 TO 10 Al Hydroxide/Mg Hydroxide (Milk Of Magnesia Liq) 30 ml PO Q12H PRN PRN Reason: Mild Constipation Bisacodyl (Dulcolax Supp) 10 mg RECTAL DAILY PRN PRN Reason: SEVERE CONSITIPATION Clonidine HCl (Catapres) 0.1 mg PO Q6H PRN PRN Reason: sbp greater 170 Diphenhydramine HCl (Benadryl) 25 mg PO Q6H PRN PRN Reason: for itching Vancomycin HCl 1,000 mg/ (Sodium Chloride) 250 mls @ 250 mls/hr IV.SIG PT SITTER [facility] Stop: 05/06/18 10:18 Lactated Ringer's (Lr 1000 Ml Inj) 1,000 mls @ 30 mls/hr IV.CONT .Q24H ONE Stop: 05/04/18 03:59 Last Admin: 05/03/18 07:10 Dose: 30 mls/hr Morphine Sulfate (Morphine Inj) 30 mg in 30 mls @ 0 mls/hr [employer]IM[employer] CARET[employer]ER UNSCH PRN PRN Reason: prn pain Last Admin: 05/03/18 15:05 Dose: 0 mls/hr Vancomycin HCl 1,000 mg/ (Sodium Chloride) 250 mls @ 250 mls/hr IV.SIG Q12H [facility] Stop: 05/04/18 08:59 Potassium Chloride/Sodium Chloride (Ns + Kcl 20 Meq Inj) 1,000 mls @ 80 mls/hr IV.CONT .[id number] [facility] Last Admin: 05/03/18 15:00 Dose: 80 mls/hr Lactulose (Lactulose Liq) 30 ml PO DAILY PRN PRN Reason: SEVERE CONSITIPATION Miscellaneous Information ([facility] Nursing Information) 1 each OTHER UNSCH PRN PRN Reason: SEE LABEL COMMENTS Stop: 05/04/18 13:42 Naloxone HCl (Narcan Inj) 0.4 mg IV.PUSH PRN PRN PRN Reason: Resp rate < 10 Ondansetron HCl (Zofran Inj) 4 mg IV.PUSH Q6H PRN PRN Reason: NAUSEA OR VOMITING Pantoprazole Sodium (Protonix) 40 mg PO DAILY [facility] Sennosides (Senokot) 17.2 mg PO Q12H PRN PRN Reason: Moderate Constipation Sodium Chloride (Ns Flush) 2 ml IV.FLUSH BID [facility] Last Admin: 05/02/18 20:59 Dose: 2 ml Sodium Chloride (Ns Flush) 2 ml IV.FLUSH PRN PRN PRN Reason: FLUSH AFTER USING IV ACCESS Temazepam (Restoril) 15 mg PO HS PRN PRN Reason: INSOMNIA Allergies Allergy/AdvReac Type Severity Reaction Status Date / Time Penicillins Allergy Chest Pain Verified 05/03/18 07:52 Physical Exam Vital signs: Vital Signs 05/02/18 20:00 05/02/18 21:29 05/03/18 00:00 Temperature 98.7 F 98.0 F Pulse Rate 79 78 Respiratory Rate 17 18 17 Blood Pressure 145/76 H 135/67 Pulse Oximetry 98 97 05/03/18 01:17 05/03/18 06:12 05/03/18 06:40 Temperature 97.9 F Pulse Rate 64 Respiratory Rate 17 17 17 Blood Pressure 137/80 Pulse Oximetry 98 05/03/18 08:00 05/03/18 13:38 05/03/18 13:55 Temperature 98.4 F 97.8 F Pulse Rate 77 97 H 92 H Respiratory Rate 18 20 20 Blood Pressure 124/89 116/70 Pulse Oximetry 97 88 L 93 L 05/03/18 14:10 05/03/18 14:25 05/03/18 14:41 Temperature Pulse Rate 85 81 84 Respiratory Rate 18 18 18 Blood Pressure 102/65 104/56 L 101/61 Pulse Oximetry 94 L 95 95 05/03/18 15:00 05/03/18 15:21 05/03/18 15:24 Temperature 98.2 F Pulse Rate 80 84 Respiratory Rate 20 Blood Pressure 104/68 104/60 Pulse Oximetry 95 95 96 05/03/18 16:00 Temperature 98.6 F Pulse Rate 83 Respiratory Rate 20 Blood Pressure Pulse Oximetry 97 Intake & Output 05/02/18 05/03/18 05/03/18 18:59 06:59 18:59 Intake Total 1200 / 1200 3500 / 3500 Output Total 575 / 575 Balance 1200 / 1200 2925 / 2925 Weight 130.7 kg Intake: Oral 1200 / 1200 Anesthesia Amount 3500 / 3500 Output: Estimated Blood Loss 500 / 500 Wound Drainage 75 / 75 # 1 Neck 75 / 75 Other: # Voids 6 Date of Last Bowel Movement 04/30/18 04/30/18 Narrative: GEN: Well-appearing, sitting up in bed in no acute distress HEENT: PERRL, mucosa moist, normal phonation NECK: Trachea midline, [place] collar in place CARDIO: Regular rate and rhythm PULM: Clear to auscultation bilaterally ABD/GI: Soft, non-tender EXT/MSK: No peripheral edema SKIN: Warm and well-perfused NEURO: Awake and alert, speech clear and fluent, answers questions appropriately and follows all commands, motor strength 5/5 and sensation intact to all extremities PSYCH: Appropriate affect - Urinary Catheter Management Indwelling Urethral Catheter Cath placed during this visit: yes Reason for continuing: Hourly intake/output Insertion date: 05/03/18 Assessment and Plan - Assessment and Plan Plan: 57yM POD #0 s/p C3-7 laminectomy, C3-T1 posterior spinal fusion, C4-6 lateral mass screws, and T1 lateral mass screw for severe cervical spinal stenosis with myelopathy, in [facility] for close airway monitoring post-op Active problems: 1. Extensive cervical/ thoracic spinal fixation 2. Acute post-operative pain 3. History of difficulty awakening from anesthesia 4. Cervical myelopathy Plan: -Transfer to [facility] -Close airway monitoring -LABORATORY ANIMAL CARETAKER for pain -Bowel regimen -Continue Gamble catheter -Regular diet, no maintenance fluids -AM labs -Chloraseptic spray PRN sore throat If patient remains stable overnight, he can transition back to hospitalist service. Thank you for this consult. Level 2 consult Code Status: Full Discussed Condition With: Dr. Schwartz (neurosurgery)
[2018-05-03] MEDS: Vancomycin Inj 1,000 MG in Sodium Chlor 0.9% Inj 250 ML IV.SIG SCH (20:54)
[2018-05-04 05:14] LABS: Baso # (Auto) 0.1 th/mm3 (0.0-0.2); Baso % (Auto) 0.3 % (0.0-2.0); Eos % (Auto) 0.1 % (0.0-4.0); Hematocrit 31.3 % (39.0-51.0); Hemoglobin 10.8 gm/dL (13.0-17.0); Lymph # (Auto) 2.1 th/mm3 (1.0-4.8); Lymph % (Auto) 12.9 % (9.0-44.0); Mean Corpuscular HGB Conc 34.7 % (32.0-36.0); Mean Corpuscular Hemoglobin 29.8 pg (27.0-34.0); Mean Corpuscular Volume 85.8 fL (80.0-100.0); Mean Platelet Volume 8.1 fL (7.0-11.0); Mono # (Auto) 1.2 th/mm3 (0.0-0.9); Mono % (Auto) 7.6 % (0.0-8.0); Neut # (Auto) 12.7 th/mm3 (1.8-7.7); Neut % (Auto) 79.1 % (16.0-70.0); Platelet Count 225 th/mm3 (150-450); Red Blood Count 3.64 mil/mm3 (4.50-5.90); Red Cell Distribution Width 14.2 % (11.6-17.2)
[2018-05-04 05:37] LABS: Anion Gap 6 meq/L (5-15); Blood Urea Nitrogen 12 mg/dL (7-18); Calcium 7.7 mg/dL (8.5-10.1); Carbon Dioxide 27.3 meq/L (21.0-32.0); Chloride 108 meq/L (98-107); Glomerular Filtration Rate Greater Than 89 mL/min (>89); Glucose,Random 119 mg/dL (74-106); Magnesium 2.4 mg/dL (1.5-2.5); Potassium 4.1 meq/L (3.5-5.1); Sodium 141 meq/L (136-145)
--- NOTE | 2018-05-04 07:49 | P.PNCC ---
Subjective Subjective Remarks/Hospital Course: 57yM transferred to [facility], POD #0 s/p C3-7 laminectomy, C3-T1 posterior spinal fusion, C4-6 lateral mass screws, and T1 lateral mass screw for severe cervical spinal stenosis with myelopathy. The patient has a history of difficulty awakening from anesthesia in the past, but was successfully extubated in PACU without difficulty. He was transferred to [facility] for close airway monitoring after extensive surgery. The patient is currently awake and alert, offers no complaints other than a "dry mouth and sore throat". 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 05/04: Patient had no significant overnight events. Appears upset this morning and says "I didn't sleep at all, I feel stiff and my lower back hurts". 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 Objective Vital Signs / I&O: Vital Signs 05/03/18 08:00 05/03/18 13:38 05/03/18 13:55 Temperature 98.4 F 97.8 F Pulse Rate 77 97 H 92 H Respiratory Rate 18 20 20 Blood Pressure 124/89 116/70 Pulse Oximetry 97 88 L 93 L 05/03/18 14:10 05/03/18 14:25 05/03/18 14:41 Temperature Pulse Rate 85 81 84 Respiratory Rate 18 18 18 Blood Pressure 102/65 104/56 L 101/61 Pulse Oximetry 94 L 95 95 05/03/18 15:00 05/03/18 15:21 05/03/18 15:24 Temperature 98.2 F Pulse Rate 80 84 Respiratory Rate 20 Blood Pressure 104/68 104/60 Pulse Oximetry 95 95 96 05/03/18 16:00 05/03/18 17:00 05/03/18 18:00 Temperature 98.6 F Pulse Rate 83 77 90 Respiratory Rate 20 15 22 Blood Pressure Pulse Oximetry 97 96 98 05/03/18 18:19 05/03/18 19:00 05/03/18 19:40 Temperature Pulse Rate 90 85 77 Respiratory Rate 17 21 22 Blood Pressure 104/58 L 105/60 92/57 L Pulse Oximetry 97 97 95 05/03/18 20:00 05/03/18 20:06 05/03/18 20:40 Temperature 98.2 F Pulse Rate 90 85 72 Respiratory Rate 23 24 17 Blood Pressure 100/60 99/59 L Pulse Oximetry 98 97 96 05/03/18 21:00 05/03/18 21:40 05/03/18 22:00 Temperature Pulse Rate 71 71 76 Respiratory Rate 22 22 12 Blood Pressure 105/60 Pulse Oximetry 97 97 97 05/03/18 22:40 05/03/18 23:00 05/03/18 23:40 Temperature Pulse Rate 64 65 61 Respiratory Rate 15 13 12 Blood Pressure 98/58 L 90/53 L Pulse Oximetry 96 97 96 05/03/18 23:44 05/04/18 00:00 05/04/18 00:01 Temperature 98.0 F Pulse Rate 68 67 66 Respiratory Rate 17 12 18 Blood Pressure 99/56 L 90/51 L Pulse Oximetry 98 97 97 05/04/18 00:05 05/04/18 01:00 05/04/18 01:01 Temperature Pulse Rate 69 62 61 Respiratory Rate 16 13 13 Blood Pressure 97/54 L Pulse Oximetry 98 98 05/04/18 02:00 05/04/18 02:01 05/04/18 02:10 Temperature Pulse Rate 61 73 60 Respiratory Rate 16 31 H Blood Pressure 102/60 Pulse Oximetry 97 99 05/04/18 02:37 05/04/18 03:00 05/04/18 03:01 Temperature Pulse Rate 62 59 L Respiratory Rate 21 13 11 L Blood Pressure 102/56 L Pulse Oximetry 97 98 05/04/18 03:10 05/04/18 04:00 05/04/18 04:01 Temperature 98.2 F Pulse Rate 61 64 Respiratory Rate 14 12 13 Blood Pressure 104/59 L Pulse Oximetry 98 97 05/04/18 05:00 05/04/18 05:01 05/04/18 06:00 Temperature Pulse Rate 59 L 56 L 58 L Respiratory Rate 15 13 16 Blood Pressure 106/60 Pulse Oximetry 98 98 100 Intake & Output 05/03/18 05/04/18 05/04/18 18:59 06:59 18:59 Intake Total 4220 / 4220 1970 / 1970 Output Total 1065 / 1065 1500 / 1500 Balance 3155 / 3155 470 / 470 Weight 131 kg 130.3 kg Intake: IV 1250 / 1250 NS + KCl 20 mEq Inj 1,000 ML @ 1000 / 1000 80 mls/hr IV.CONT .[id number] TANA Rx#:[id number] Vancomycin Inj 1,000 MG In NS 250 / 250 Inj 250 ML @ 250 mls/hr IV.SIG Q12H TANA Rx#:[id number] Oral 720 / 720 720 / 720 Anesthesia Amount 3500 / 3500 Output: Estimated Blood Loss 500 / 500 Urine Amount (Catheter) 450 / 450 1500 / 1500 Indwelling Urethral Catheter 450 / 450 1500 / 1500 Wound Drainage 115 / 115 # 1 Neck 115 / 115 Other: Date of Last Bowel Movement 05/02/18 Result Diagrams: 05/04/18 04:55 05/04/18 04:55 Objective Remarks: GEN: Well-appearing, lying in bed HEENT: PERRL, mucosa moist NECK: Trachea midline, cervical collar off CARDIO: Regular rate and rhythm PULM: Clear to auscultation bilaterally ABD/GI: Soft, non-tender in all quadrants EXT/MSK: No peripheral edema SKIN: Warm and well-perfused NEURO: Awake and alert, speech clear and fluent, answers questions appropriately and follows all commands, motor strength 5/5 and sensation intact to all extremities PSYCH: Appropriate affect Assessment and Plan - Assessment and Plan Plan: 57yM POD #0 s/p C3-7 laminectomy, C3-T1 posterior spinal fusion, C4-6 lateral mass screws, and T1 lateral mass screw for severe cervical spinal stenosis with myelopathy, in ISC for close airway monitoring post-op Active problems: 1. Extensive cervical/ thoracic spinal fixation 2. Acute post-operative pain 3. History of difficulty awakening from anesthesia 4. Cervical myelopathy Plan: -No signs of airway compromise -CARPENTERS SUPERVISOR for pain, may benefit from changing from morphine to dilaudid CARPENTERS SUPERVISOR if pain continues to be severe * Added multi-modal pain control as well-- tizanidine, gabapentin, lidoderm patch, scheduled APAP, and changed [place] to equivalent dose of oxycodone to avoid going over 4g of acetaminophen daily -Bowel regimen -Continue Gamble catheter -Regular diet, no maintenance fluids -Chloraseptic spray PRN sore throat Patient has been stable overnight, no acute critical care needs, will sign off. Please don't hesitate to reconsult with any new issues. Level 2 follow up Code Status: Full
[2018-05-04] MEDS: Gabapentin 100 MG Capsule PO SCH ×2 (09:16→20:36)
[2018-05-04] MEDS: Acetaminophen 325 MG Tablet PO SCH ×3 (09:18→20:36)
[2018-05-04] MEDS: Vancomycin Inj 1,000 MG in Sodium Chlor 0.9% Inj 250 ML IV.SIG SCH (09:18)
[2018-05-04] MEDS: Lidocaine 5% Patch T-DERMAL SCH (09:19)
--- NOTE | 2018-05-04 10:25 | P.PNNS ---
Subjective Interval history: Doing well overnight Physical Exam Vital signs: Vital Signs 05/03/18 13:38 05/03/18 13:55 05/03/18 14:10 Temperature 97.8 F Pulse Rate 97 H 92 H 85 Respiratory Rate 20 20 18 Blood Pressure 116/70 102/65 Pulse Oximetry 88 L 93 L 94 L 05/03/18 14:25 05/03/18 14:41 05/03/18 15:00 Temperature 98.2 F Pulse Rate 81 84 80 Respiratory Rate 18 18 20 Blood Pressure 104/56 L 101/61 104/68 Pulse Oximetry 95 95 95 05/03/18 15:21 05/03/18 15:24 05/03/18 16:00 Temperature 98.6 F Pulse Rate 84 83 Respiratory Rate 20 Blood Pressure 104/60 Pulse Oximetry 95 96 97 05/03/18 17:00 05/03/18 18:00 05/03/18 18:19 Temperature Pulse Rate 77 90 90 Respiratory Rate 15 22 17 Blood Pressure 104/58 L Pulse Oximetry 96 98 97 05/03/18 19:00 05/03/18 19:40 05/03/18 20:00 Temperature 98.2 F Pulse Rate 85 77 90 Respiratory Rate 21 22 23 Blood Pressure 105/60 92/57 L Pulse Oximetry 97 95 98 05/03/18 20:06 05/03/18 20:40 05/03/18 21:00 Temperature Pulse Rate 85 72 71 Respiratory Rate 24 17 22 Blood Pressure 100/60 99/59 L Pulse Oximetry 97 96 97 05/03/18 21:40 05/03/18 22:00 05/03/18 22:40 Temperature Pulse Rate 71 76 64 Respiratory Rate 22 12 15 Blood Pressure 105/60 98/58 L Pulse Oximetry 97 97 96 05/03/18 23:00 05/03/18 23:40 05/03/18 23:44 Temperature Pulse Rate 65 61 68 Respiratory Rate 13 12 17 Blood Pressure 90/53 L 99/56 L Pulse Oximetry 97 96 98 05/04/18 00:00 05/04/18 00:01 05/04/18 00:05 Temperature 98.0 F Pulse Rate 67 66 69 Respiratory Rate 12 18 16 Blood Pressure 90/51 L Pulse Oximetry 97 97 05/04/18 01:00 05/04/18 01:01 05/04/18 02:00 Temperature Pulse Rate 62 61 61 Respiratory Rate 13 13 16 Blood Pressure 97/54 L Pulse Oximetry 98 98 97 05/04/18 02:01 05/04/18 02:10 05/04/18 02:37 Temperature Pulse Rate 73 60 Respiratory Rate 31 H 21 Blood Pressure 102/60 Pulse Oximetry 99 05/04/18 03:00 05/04/18 03:01 05/04/18 03:10 Temperature Pulse Rate 62 59 L Respiratory Rate 13 11 L 14 Blood Pressure 102/56 L Pulse Oximetry 97 98 05/04/18 04:00 05/04/18 04:01 05/04/18 05:00 Temperature 98.2 F Pulse Rate 61 64 59 L Respiratory Rate 12 13 15 Blood Pressure 104/59 L Pulse Oximetry 98 97 98 05/04/18 05:01 05/04/18 06:00 05/04/18 06:01 Temperature Pulse Rate 56 L 58 L 56 L Respiratory Rate 13 16 11 L Blood Pressure 106/60 108/63 Pulse Oximetry 98 100 100 05/04/18 07:00 05/04/18 08:00 05/04/18 08:50 Temperature 97.9 F Pulse Rate 56 L 57 L Respiratory Rate 11 L 11 L Blood Pressure 105/58 L Pulse Oximetry 99 100 98 05/04/18 09:00 05/04/18 10:00 Temperature Pulse Rate 57 L 65 Respiratory Rate 11 L 19 Blood Pressure 110/62 Pulse Oximetry 97 98 Intake & Output 05/03/18 05/04/18 05/04/18 18:59 06:59 18:59 Intake Total 4220 / 4220 1970 / 1970 Output Total 1065 / 1065 1620 / 1620 Balance 3155 / 3155 350 / 350 Weight 131 kg 130.3 kg Intake: IV 1250 / 1250 NS + KCl 20 mEq Inj 1,000 ML @ 1000 / 1000 80 mls/hr IV.CONT .[id number] TANA Rx#:[id number] Vancomycin Inj 1,000 MG In NS 250 / 250 Inj 250 ML @ 250 mls/hr IV.SIG Q12H TANA Rx#:[id number] Oral 720 / 720 720 / 720 Anesthesia Amount 3500 / 3500 Output: Estimated Blood Loss 500 / 500 Urine Amount (Catheter) 450 / 450 1500 / 1500 Indwelling Urethral Catheter 450 / 450 1500 / 1500 Wound Drainage 115 / 115 120 / 120 # 1 Neck 115 / 115 120 / 120 Other: Date of Last Bowel Movement 05/02/18 Narrative: A&O x 3 CN II-XII intact Motor upper extremity strength improved to 5/5 Lower extremities still c/o back pain Has limited range of motion of neck as expected NORI drain putting out - Urinary Catheter Management Indwelling Urethral Catheter Cath placed during this visit: yes Reason for continuing: Hourly intake/output Insertion date: 05/03/18 Assessment and Plan - Plan MRI C-spine: tight stenosis adjacent to prior fusion at C5/6 level posteriorly and anteriorly with cord signal change 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 Plan: Sunday05/03/18 OR for posterior cervical decompression and fusion C5/6 + lumbar decompression L2/3, L3/4, and L4/5 laminectomies Neuromonitoring, prone in pins Patient understands risks of surgery and wishes to proceed. Consent signed orders placed for npo, hibiclens bath, vanco AMANDOOR. 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
[2018-05-05] MEDS: Acetaminophen 325 MG Tablet PO SCH ×4 (02:28→20:06)
[2018-05-05] MEDS: Morphine Inj 30 MG/30 ML PCA.VIAL PCA PRN (04:34)
[2018-05-05] MEDS: Lidocaine 5% Patch T-DERMAL SCH (08:55)
[2018-05-05] MEDS: Gabapentin 100 MG Capsule PO SCH ×2 (08:56→20:07)
[2018-05-05] MEDS ORDERED: Naloxone Inj 0.4 MG/ML Vial IV.PUSH PRN ×2 (09:10→09:39)
--- NOTE | 2018-05-05 11:18 | P.PNIM ---
Subjective Interval history: severe neck pain and "charley horse senstation" Physical Exam Vital signs: Last Vital Signs Temp 98.4 F 05/05/18 08:00 Pulse 90 05/05/18 09:01 Resp 21 05/05/18 09:01 BP 138/76 05/05/18 09:01 Pulse Ox 95 05/05/18 09:01 Narrative: heart reg lung cta abd s/nt ext no edema lying in bed . unable to turn head..refusing neck exam. [place] drain noted Results Labs CBC & Chem 7: 05/04/18 04:55 05/04/18 04:55 Assessment and Plan Plan 1. cervical myelopathy 05/03/18 Procedure: C3-7 Laminectomy C3-T1 posterior spinal fusion C3, C4, C5, C6 lateral mass screws today severe neck pain. refusing exam by me Dr Schwartz saw him and ordering c spine xray. morphine globe changer changing to dilaudid globe changer dvt prophylaxis PT observe in ICU again today. 2. severe lumbar spinal stenosis holding off on laminectomies from L2-5 pt denies any cardiac dz or any pulmonary dz. Progress Note: Quality VTE Deep Vein Thrombosis/Pulmonary Embolism Present on Admission: No
[2018-05-05] MEDS: HYDROmorphone PCA Inj 6 MG/30 ML PCA.VIAL PCA PRN ×2 (11:28→21:05)
--- NOTE | 2018-05-05 12:00 | P.PNNS ---
Subjective Interval history: Painful Physical Exam Vital signs: Vital Signs 05/04/18 12:00 05/04/18 13:00 05/04/18 14:00 Temperature 98.3 F Pulse Rate 67 68 71 Respiratory Rate 16 23 14 Blood Pressure 90/55 L 93/51 L 103/53 L Pulse Oximetry 93 L 97 87 L 05/04/18 15:00 05/04/18 16:00 05/04/18 17:00 Temperature 98.1 F Pulse Rate 75 67 71 Respiratory Rate 24 17 13 Blood Pressure 89/48 L 95/51 L 99/54 L Pulse Oximetry 88 L 96 97 05/04/18 18:00 05/04/18 19:00 05/04/18 19:01 Temperature Pulse Rate 65 72 63 Respiratory Rate 14 16 13 Blood Pressure 100/54 L 101/58 L Pulse Oximetry 97 97 97 05/04/18 20:00 05/04/18 20:01 05/04/18 21:00 Temperature 98.0 F Pulse Rate 66 70 66 Respiratory Rate 15 9 L 15 Blood Pressure 105/51 L Pulse Oximetry 93 L 95 95 05/04/18 21:01 05/04/18 22:00 05/04/18 22:01 Temperature Pulse Rate 68 66 67 Respiratory Rate 16 14 14 Blood Pressure 106/52 L 96/51 L Pulse Oximetry 94 L 90 L 91 L 05/04/18 23:00 05/04/18 23:01 05/05/18 00:00 Temperature Pulse Rate 69 65 72 Respiratory Rate 15 12 12 Blood Pressure 103/55 L Pulse Oximetry 90 L 91 L 94 L 05/05/18 00:01 05/05/18 00:45 05/05/18 01:00 Temperature Pulse Rate 69 71 Respiratory Rate 14 20 18 Blood Pressure 115/57 L Pulse Oximetry 95 92 L 05/05/18 01:01 05/05/18 02:00 05/05/18 02:01 Temperature Pulse Rate 70 72 69 Respiratory Rate 15 12 10 L Blood Pressure 97/54 L 106/56 L Pulse Oximetry 92 L 94 L 94 L 05/05/18 03:00 05/05/18 03:01 05/05/18 04:00 Temperature Pulse Rate 67 68 72 Respiratory Rate 14 14 12 Blood Pressure 118/56 L Pulse Oximetry 91 L 91 L 96 05/05/18 04:01 05/05/18 05:00 05/05/18 05:01 Temperature Pulse Rate 69 72 72 Respiratory Rate 11 L 14 14 Blood Pressure 117/56 L 124/75 Pulse Oximetry 96 90 L 88 L 05/05/18 05:04 05/05/18 06:00 05/05/18 06:01 Temperature Pulse Rate 71 79 Respiratory Rate 18 14 16 Blood Pressure 130/67 Pulse Oximetry 92 L 93 L 05/05/18 07:00 05/05/18 07:01 05/05/18 08:00 Temperature 98.4 F Pulse Rate 73 73 76 Respiratory Rate 14 14 18 Blood Pressure 107/66 Pulse Oximetry 91 L 91 L 88 L 05/05/18 08:01 05/05/18 09:00 05/05/18 09:01 Temperature Pulse Rate 76 93 H 90 Respiratory Rate 15 22 21 Blood Pressure 119/57 L 138/76 Pulse Oximetry 87 L 94 L 95 Intake & Output 05/04/18 05/05/18 05/05/18 18:59 06:59 18:59 Intake Total 2070 / 2070 1400 / 1400 Output Total 595 / 595 1160 / 1160 Balance 1475 / 1475 240 / 240 Weight 130.3 kg 130.3 kg Intake: IV 1250 / 1250 1000 / 1000 NS + KCl 20 mEq Inj 1,000 ML @ 1000 / 1000 1000 / 1000 80 mls/hr IV.CONT .[id number] TANA Rx#:[id number] Vancomycin Inj 1,000 MG In NS 250 / 250 Inj 250 ML @ 250 mls/hr IV.SIG Q12H TANA Rx#:[id number] Oral 820 / 820 400 / 400 Output: Urine 650 / 650 Urine Amount (Catheter) 500 / 500 500 / 500 Indwelling Urethral Catheter 500 / 500 500 / 500 Wound Drainage # 1 Neck Other: Date of Last Bowel Movement 05/02/18 05/02/18 05/02/18 Narrative: A&O x 3 CN II-XII intact Motor upper extremity strength improved to 5/5 Lower extremities still c/o back pain Has limited range of motion of neck as expected NORI minimal overnight 10 - Urinary Catheter Management Indwelling Urethral Catheter Cath placed during this visit: yes, but has since been removed by the nurse Reason for continuing: Acute urinary retention Insertion date: 05/05/18 Insertion time: 06:20 Removal date: 05/04/18 Removal time: 15:30 Assessment and Plan - Plan MRI C-spine: tight stenosis adjacent to prior fusion at C5/6 level posteriorly and anteriorly with cord signal change 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 Plan: Sunday05/03/18 OR for posterior cervical decompression and fusion C5/6 + lumbar decompression L2/3, L3/4, and L4/5 laminectomies Neuromonitoring, prone in pins Patient understands risks of surgery and wishes to proceed. Consent signed orders placed for npo, esperanza marion, paula BARNEY. 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
[2018-05-05] MEDS ORDERED: diazePAM 5 MG Tablet PO SCH (13:00)
[2018-05-05 13:33] LABS: Baso # (Auto) 0.1 th/mm3 (0.0-0.2); Baso % (Auto) 0.4 % (0.0-2.0); Eos # (Auto) 0.2 th/mm3 (0.0-0.4); Eos % (Auto) 1.4 % (0.0-4.0); Hematocrit 32.7 % (39.0-51.0); Lymph # (Auto) 2.2 th/mm3 (1.0-4.8); Lymph % (Auto) 14.4 % (9.0-44.0); Mean Corpuscular HGB Conc 33.5 % (32.0-36.0); Mean Corpuscular Hemoglobin 30.1 pg (27.0-34.0); Mean Corpuscular Volume 89.8 fL (80.0-100.0); Mean Platelet Volume 7.9 fL (7.0-11.0); Mono # (Auto) 1.2 th/mm3 (0.0-0.9); Mono % (Auto) 8.1 % (0.0-8.0); Neut # (Auto) 11.5 th/mm3 (1.8-7.7); Neut % (Auto) 75.7 % (16.0-70.0); Platelet Count 212 th/mm3 (150-450); Red Blood Count 3.64 mil/mm3 (4.50-5.90); Red Cell Distribution Width 14.6 % (11.6-17.2); White Blood Count 15.2 th/mm3 (4.0-11.0)
[2018-05-05 14:04] LABS: Anion Gap 3 meq/L (5-15); Blood Urea Nitrogen 11 mg/dL (7-18); Calcium 6.8 mg/dL (8.5-10.1); Carbon Dioxide 25.8 meq/L (21.0-32.0); Chloride 113 meq/L (98-107); Glomerular Filtration Rate Greater Than 89 mL/min (>89); Glucose,Random 81 mg/dL (74-106); Magnesium 1.9 mg/dL (1.5-2.5); Potassium 5.6 meq/L (3.5-5.1); Sodium 142 meq/L (136-145)
[2018-05-05 14:28] LABS: Albumin 2.2 g/dL (3.4-5.0); Calcium-Albumin Corrected 8.2 mg/dL (8.5-10.1)
[2018-05-05] MEDS: Sod Chloride 0.9% Inj 1,000 ML IV.CONT SCH (16:00)
[2018-05-05] MEDS ORDERED: diazePAM 5 MG Tablet PO PRN (16:59)
--- NOTE | 2018-05-05 23:14 | CT ---
EXAM DATE: 05/05/2018 11:07 PM EST AGE/SEX: 57 years / Male INDICATIONS: Neck pain post surgery. CLINICAL DATA: This is the patient's subsequent encounter. Patient reports that signs and symptoms h ave been present for 4 - 6 days and indicates a pain score of 8/10. MEDICAL/SURGICAL HISTORY: None. . Cervical and lumbar spine surgery RADIATION DOSE: 26.56 CTDI (mGy) COMPARISON: No prior exams available for comparison. TECHNIQUE: Contiguous axial images were obtained using helical multirow detector technique. The vol umetric data was post-processed with multiplanar reconstruction in oblique axial, sagittal, and coron al planes. Using automated exposure control and adjustment of the mA and/or kV according to patient s ize, radiation dose was kept as low as reasonably achievable to obtain optimal diagnostic quality dottie ges. DICOM format image data is available electronically for review and comparison. FINDINGS: Anterior plate at C4-5 and posterior spinal instrumentation hardware bilaterally spanning from C3 th rough T1. Bone chips are present about the lateral masses. There is a surgical drain at the laminecto my site C4-5. The bony spinal canal is patent. There is mild neural foraminal narrowing at the C3-4 l evel; the neural foramina at the other levels are patent. Posterior osteophytes at the C5-6 level cau ses focal indentation on the ventral margin of thecal sac. Vertebral bodies are in normal alignment. No evidence of compression deformity. CONCLUSION: 1. Vertebral bodies are in normal alignment. Surgical changes in posterior elements of the mid and l ower cervical spine have an expected appearance. No evidence of spondylolisthesis. Electronically signed by: Jovon Perez MD Board Certified Radiologist 05/05/2018 11:12 PM EST
--- NOTE | 2018-05-05 23:58 | XR ---
EXAM DATE: 05/05/2018 11:51 PM EST AGE/SEX: 57 years / Male INDICATIONS: Post instrumentation. CLINICAL DATA: This is the patient's subsequent encounter. Patient reports that signs and symptoms h ave been present for 4 - 6 days and indicates a pain score of 6/10. MEDICAL/SURGICAL HISTORY: None. . C5-C6 Anterior cervical disc fusion. C3-T1 Posterior cervical disc fusion. COMPARISON: [facility] [place], 05/03/2018. . FINDINGS: There is anterior plate and screw fixation at C4-5. There is posterior brie and transpedicular screw f ixation at C3-T1. Hardware appears intact and grossly well-positioned although the T1 pedicle screws are only visualized on the AP view. Dens is intact. Vertebral body heights are maintained and there i s intact sagittal alignment. Postsurgical soft tissue changes are noted. CONCLUSION: 1. Anterior and posterior cervical fixation, as above. Electronically signed by: Edis Stevens MD Board Certified Radiologist 05/05/2018 11:56 PM DIVINA Prado
[2018-05-06] MEDS: Acetaminophen 325 MG Tablet PO SCH ×4 (02:36→19:56)
[2018-05-06 06:03] LABS: Baso # (Auto) 0.1 th/mm3 (0.0-0.2); Baso % (Auto) 0.6 % (0.0-2.0); Eos # (Auto) 0.2 th/mm3 (0.0-0.4); Eos % (Auto) 1.8 % (0.0-4.0); Hematocrit 30.3 % (39.0-51.0); Hemoglobin 10.5 gm/dL (13.0-17.0); Lymph % (Auto) 16.2 % (9.0-44.0); Mean Corpuscular HGB Conc 34.7 % (32.0-36.0); Mean Corpuscular Volume 86.4 fL (80.0-100.0); Neut # (Auto) 8.9 th/mm3 (1.8-7.7); Neut % (Auto) 73.4 % (16.0-70.0); Platelet Count 208 th/mm3 (150-450); Red Cell Distribution Width 13.8 % (11.6-17.2); White Blood Count 12.1 th/mm3 (4.0-11.0)
[2018-05-06] MEDS: Sod Chloride 0.9% Inj 1,000 ML IV.CONT SCH ×2 (06:35→20:27)
[2018-05-06 06:53] LABS: Anion Gap 7 meq/L (5-15); Blood Urea Nitrogen 12 mg/dL (7-18); Calcium 7.4 mg/dL (8.5-10.1); Carbon Dioxide 25.3 meq/L (21.0-32.0); Chloride 106 meq/L (98-107); Glomerular Filtration Rate Greater Than 89 mL/min (>89); Glucose,Random 91 mg/dL (74-106); Magnesium 1.9 mg/dL (1.5-2.5); Potassium 4.3 meq/L (3.5-5.1); Sodium 138 meq/L (136-145)
[2018-05-06] MEDS: Gabapentin 100 MG Capsule PO SCH (08:35)
[2018-05-06] MEDS: Lidocaine 5% Patch T-DERMAL SCH (08:35)
[2018-05-06] MEDS: HYDROmorphone PCA Inj 6 MG/30 ML PCA.VIAL PCA PRN (09:06)
--- NOTE | 2018-05-06 09:59 | P.PNNS ---
Subjective Interval history: xrays and CT show good alignment Physical Exam Vital signs: Vital Signs 05/05/18 10:00 05/05/18 10:01 05/05/18 11:00 Temperature Pulse Rate 80 80 82 Respiratory Rate 15 15 16 Blood Pressure 111/55 L Pulse Oximetry 91 L 91 L 93 L 05/05/18 11:01 05/05/18 12:00 05/05/18 12:01 Temperature 99.2 F Pulse Rate 80 85 84 Respiratory Rate 14 11 L 10 L Blood Pressure 115/56 L 127/61 Pulse Oximetry 92 L 93 L 95 05/05/18 13:00 05/05/18 13:01 05/05/18 14:00 Temperature Pulse Rate 76 79 79 Respiratory Rate 13 13 14 Blood Pressure 91/54 L Pulse Oximetry 92 L 89 L 95 05/05/18 14:01 05/05/18 15:00 05/05/18 15:01 Temperature Pulse Rate 79 77 77 Respiratory Rate 14 14 14 Blood Pressure 94/62 L 100/52 L Pulse Oximetry 95 97 97 05/05/18 15:58 05/05/18 16:00 05/05/18 16:01 Temperature 99.0 F Pulse Rate 77 77 Respiratory Rate 17 14 14 Blood Pressure 107/59 L Pulse Oximetry 96 97 05/05/18 17:00 05/05/18 17:01 05/05/18 18:00 Temperature Pulse Rate 76 77 77 Respiratory Rate 16 14 15 Blood Pressure 104/58 L Pulse Oximetry 98 98 98 05/05/18 18:01 05/05/18 19:00 05/05/18 19:14 Temperature Pulse Rate 75 75 79 Respiratory Rate 17 14 16 Blood Pressure 112/56 L 114/55 L Pulse Oximetry 98 97 100 05/05/18 20:00 05/05/18 20:01 05/05/18 21:00 Temperature Pulse Rate 75 75 78 Respiratory Rate 13 13 13 Blood Pressure 112/56 L Pulse Oximetry 98 98 98 05/05/18 21:01 05/05/18 21:35 05/05/18 22:00 Temperature Pulse Rate 77 77 Respiratory Rate 12 15 13 Blood Pressure 120/56 L Pulse Oximetry 98 98 05/05/18 22:01 05/05/18 23:00 05/05/18 23:01 Temperature Pulse Rate 76 81 83 Respiratory Rate 12 14 26 H Blood Pressure 110/59 L 121/61 Pulse Oximetry 98 100 96 05/06/18 00:00 05/06/18 00:01 05/06/18 01:00 Temperature Pulse Rate 74 80 80 Respiratory Rate 10 L 18 15 Blood Pressure 110/59 L Pulse Oximetry 96 97 97 05/06/18 01:01 05/06/18 01:35 05/06/18 02:00 Temperature Pulse Rate 81 85 Respiratory Rate 13 18 13 Blood Pressure 113/54 L Pulse Oximetry 98 97 05/06/18 02:01 05/06/18 03:00 05/06/18 03:01 Temperature Pulse Rate 95 H 89 82 Respiratory Rate 30 H 15 9 L Blood Pressure 113/57 L 120/56 L Pulse Oximetry 99 98 100 05/06/18 04:00 05/06/18 04:12 05/06/18 04:35 Temperature 97.9 F Pulse Rate 81 81 Respiratory Rate 13 22 Blood Pressure 93/57 L 98/57 L Pulse Oximetry 95 95 96 05/06/18 05:00 05/06/18 05:01 05/06/18 06:00 Temperature Pulse Rate 79 81 77 Respiratory Rate 14 16 15 Blood Pressure 94/52 L Pulse Oximetry 93 L 92 L 94 L 05/06/18 06:01 Temperature Pulse Rate 77 Respiratory Rate 18 Blood Pressure 93/54 L Pulse Oximetry 95 Intake & Output 05/05/18 05/06/18 05/06/18 18:59 06:59 18:59 Intake Total 60 / 60 5160 / 5160 Output Total 625 / 625 2300 / 2300 Balance -565 / -565 2860 / 2860 Weight 140.5 kg Intake: IV 1000 / 1000 NS Inj 1,000 ML @ 75 mls/hr IV. 1000 / 1000 CONT .[id number] TANA Rx#:[id number] Oral 60 / 60 660 / 660 Anesthesia Amount 3500 / 3500 Output: Urine 600 / 600 600 / 600 Estimated Blood Loss 500 / 500 Urine Amount (Catheter) 1150 / 1150 Indwelling Urethral Catheter 1150 / 1150 Wound Drainage 25 50 / 50 # 1 Neck 50 / 50 Other: # Voids 6 Date of Last Bowel Movement 05/02/18 05/02/18 # Bowel Movements 0 0 Narrative: A&O x 3 CN II-XII intact Motor upper extremity strength improved to 5/5 Lower extremities still c/o back pain Has limited range of motion of neck as expected NORI minimal overnight 25 - Urinary Catheter Management Indwelling Urethral Catheter Cath placed during this visit: yes, but has since been removed by the nurse Reason for continuing: Acute urinary retention Insertion date: 05/05/18 Insertion time: 06:20 Removal date: 05/04/18 Removal time: 15:30 Assessment and Plan - Plan MRI C-spine: tight stenosis adjacent to prior fusion at C5/6 level posteriorly and anteriorly with cord signal change 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 Plan: Sunday05/03/18 OR for posterior cervical decompression and fusion C5/6 + lumbar decompression L2/3, L3/4, and L4/5 laminectomies Neuromonitoring, prone in pins Patient understands risks of surgery and wishes to proceed. Consent signed orders placed for npo, hibiclens bath, paula BARNEY. 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 05/06/18 Dilaudid MATERIAL CHASER seems to be working better + oral Dilaudid C-spine xray and CT look good Mobilize with PT as tolerated Appreciate Medicine Assistance.
[2018-05-06] MEDS: Gabapentin 300 MG Capsule PO SCH ×2 (12:26→18:01)
[2018-05-06] MEDS: Enoxaparin Inj 40 MG/0.4 ML Syringe SQ SCH (12:26)
--- NOTE | 2018-05-06 15:23 | P.PNIM ---
Subjective Interval history: Pt reports that he has not eaten today because he needs assistance with meals and has not gotten any help with that today He has not had a BM in 4-5 days but he is passing gas. Pt was able to sit up for a few hours today but when his neck pain started to worsen he went back to bed. Physical Exam Vital signs: Last Vital Signs Temp 97.9 F 05/06/18 04:00 Pulse 77 05/06/18 06:01 Resp 18 05/06/18 06:01 BP 93/54 L 05/06/18 06:01 Pulse Ox 95 05/06/18 06:01 Narrative: General: NAD, AAOx3 Cardiac: Regular Lung: CTA Abd: Decreased BS, soft ND/NT Ext: No edema Results Labs CBC & Chem 7: 05/06/18 05:28 05/06/18 05:28 Imaging Cervical Spine X-Ray 05/01/18 00:00 CONCLUSION: 1. Status post solid anterior fusion at the C4-5 level. 2. Bridging anterior osteophyte C4 level. Lumbar Spine X-Ray 05/01/18 00:00 CONCLUSION: No abnormal mobility. Cervical Spine MRI 05/01/18 13:43 CONCLUSION: 1. Significant thecal sac stenosis and flattening of the spinal cord at C5-6. 2. Slight thecal sac stenosis C3-4 to C7. 3. Neural foraminal compromise bilateral C5-6 and C6-C7. Thoracic Spine MRI 05/01/18 13:43 CONCLUSION: 1. Mild degenerative disc changes with no evidence of disc protrusion or spinal stenosis. Lumbar Spine MRI 05/01/18 13:44 CONCLUSION: 1. Slight overall thecal sac stenosis L1-2. 2. Moderate overall thecal sac stenosis L2-3 and L3-4. 3. Significant thecal sac stenosis L4-5. 4. Bilateral neural foraminal compromise L2-3, L3-4, L4-5, L5-S1. Cervical Spine X-Ray 05/03/18 00:00 CONCLUSION: Intraoperative examination. Cervical Spine CT 05/05/18 00:00 CONCLUSION: 1. Vertebral bodies are in normal alignment. Surgical changes in posterior elements of the mid and lower cervical spine have an expected appearance. No evidence of spondylolisthesis. Cervical Spine X-Ray 05/05/18 00:00 CONCLUSION: 1. Anterior and posterior cervical fixation, as above. Assessment and Plan Plan Cervical myelopathy - Pt is a 57 yo male with hx ACDF C5/6 and lumbar surgery. He has had progressive lower extremity weakness and now some urine incontinence and pain which prompted his evaluation in the ED on 05/01/18. - Cervical Spine MRI (05/01/18): 1. Significant thecal sac stenosis and flattening of the spinal cord at C5- 6. 2. Slight thecal sac stenosis C3-4 to C7. 3. Neural foraminal compromise bilateral C5-6 and C6-C7. - Lumbar Spine MRI (05/01/18): 1. Slight overall thecal sac stenosis L1-2. 2. Moderate overall thecal sac stenosis L2-3 and L3-4. 3. Significant thecal sac stenosis L4-5. 4. Bilateral neural foraminal compromise L2-3, L3-4, L4-5, L5-S1. - Neurosurgery is following - Pt underwent C3-7 Laminectomy/C3-T1 posterior spinal fusion/C3, C4, C5, C6 lateral mass screws on 05/03/[address] Schwartz - On 05/05/18 pt had severe neck pain. Dr Schwartz saw him and ordered: Cervical Spine CT (05/05/18) 1. Vertebral bodies are in normal alignment. Surgical changes in posterior elements of the mid and lower cervical spine have an expected appearance. No evidence of spondylolisthesis. Cervical Spine X-Ray (05/05/18): 1. Anterior and posterior cervical fixation, as above. - The Morphine PUBLIC HEALTH STAFF NURSE was changed to Dilaudid PUBLIC HEALTH STAFF NURSE and oral Dilaudid with better pain control today - PT daily - Constipation precautions meds ordered - KUB in AM - pt to have assistance with eating meals. - DVT prophylaxis Severe lumbar spinal stenosis - Holding off on laminectomies from L2-5 Progress Note: Quality VTE Deep Vein Thrombosis/Pulmonary Embolism Present on Admission: No
[2018-05-07] MEDS: Acetaminophen 325 MG Tablet PO SCH ×4 (01:26→19:56)
--- NOTE | 2018-05-07 06:40 | XR ---
EXAM DATE: 05/07/2018 6:36 AM EST AGE/SEX: 57 years / Male INDICATIONS: Constipation. CLINICAL DATA: This is the patient's subsequent encounter. Patient reports that signs and symptoms h ave been present for 1 week and indicates a pain score of 5/10. MEDICAL/SURGICAL HISTORY: None. . C5-C6 Anterior cervical disc fusion. C3-T1 Posterior cervical disc fusion. COMPARISON: No prior exams available for comparison. FINDINGS: Examination is significantly limited by patient's body habitus. There are multiple loops of slightly distended air-filled small bowel throughout the mid abdomen. Air is seen in the colon extending to t he rectum. No gross pneumatosis or free air. No abnormal calcifications. Osseous structures are gross ly intact. CONCLUSION: 1. Limited examination due to patient's body habitus. 2. Multiple loops of slightly distended air-filled small bowel throughout the mid abdomen concerning for adynamic ileus versus developing partial small bowel obstruction. Electronically signed by: Edis Stevens MD Board Certified Radiologist 05/07/2018 6:39 AM EST
[2018-05-07 07:04] LABS: Baso % (Auto) 0.1 % (0.0-2.0); Hematocrit 33.9 % (39.0-51.0); Hemoglobin 11.7 gm/dL (13.0-17.0); Lymph # (Auto) 0.9 th/mm3 (1.0-4.8); Lymph % (Auto) 7.3 % (9.0-44.0); Mean Corpuscular HGB Conc 34.4 % (32.0-36.0); Mean Corpuscular Hemoglobin 29.6 pg (27.0-34.0); Mean Corpuscular Volume 85.8 fL (80.0-100.0); Mean Platelet Volume 8.2 fL (7.0-11.0); Mono # (Auto) 0.6 th/mm3 (0.0-0.9); Mono % (Auto) 4.3 % (0.0-8.0); Neut # (Auto) 11.4 th/mm3 (1.8-7.7); Neut % (Auto) 88.3 % (16.0-70.0); Platelet Count 270 th/mm3 (150-450); Red Blood Count 3.95 mil/mm3 (4.50-5.90); Red Cell Distribution Width 14.2 % (11.6-17.2); White Blood Count 12.9 th/mm3 (4.0-11.0)
[2018-05-07 07:36] LABS: Calcium 8.1 mg/dL (8.5-10.1); Carbon Dioxide 23.1 meq/L (21.0-32.0); Potassium 4.2 meq/L (3.5-5.1)
[2018-05-07] MEDS: Sod Chloride 0.9% Inj 1,000 ML IV.CONT SCH (09:24)
[2018-05-07] MEDS: Enoxaparin Inj 40 MG/0.4 ML Syringe SQ SCH (09:25)
[2018-05-07] MEDS: Gabapentin 300 MG Capsule PO SCH ×3 (09:25→18:15)
[2018-05-07] MEDS: Lidocaine 5% Patch T-DERMAL SCH (09:26)
--- NOTE | 2018-05-07 12:05 | P.PNNS ---
Subjective Interval history: reports stable postoperative pain and improving, however continues to complains of low back pain and is requesting to have surgery during this admission Physical Exam Vital signs: Vital Signs 05/06/18 12:00 05/06/18 12:22 05/06/18 12:23 Temperature 98.0 F Pulse Rate 98 H 92 H Respiratory Rate 10 L Blood Pressure 133/79 Pulse Oximetry 95 05/06/18 13:00 05/06/18 13:01 05/06/18 14:00 Temperature Pulse Rate 90 90 95 H Respiratory Rate 12 17 25 H Blood Pressure 133/78 Pulse Oximetry 94 L 96 91 L 05/06/18 14:01 05/06/18 15:00 05/06/18 15:01 Temperature Pulse Rate 88 96 H 94 H Respiratory Rate 24 7 L 5 L Blood Pressure 132/61 151/73 H Pulse Oximetry 100 98 95 05/06/18 16:00 05/06/18 16:01 05/06/18 17:00 Temperature 98.7 F Pulse Rate 95 H 91 H 89 Respiratory Rate 15 17 24 Blood Pressure 123/59 L Pulse Oximetry 89 L 90 L 95 05/06/18 17:01 05/06/18 18:00 05/06/18 18:01 Temperature Pulse Rate 87 89 93 H Respiratory Rate 16 13 28 H Blood Pressure 132/68 152/82 H Pulse Oximetry 97 98 99 05/06/18 19:00 05/06/18 19:01 05/06/18 20:00 Temperature 98.4 F Pulse Rate 97 H 98 H 96 H Respiratory Rate 18 33 H 18 Blood Pressure 148/72 H Pulse Oximetry 97 97 98 05/06/18 20:01 05/06/18 20:29 05/06/18 21:00 Temperature Pulse Rate 93 H 91 H Respiratory Rate 12 12 10 L Blood Pressure 177/81 H Pulse Oximetry 98 96 05/06/18 21:01 05/06/18 22:00 05/06/18 22:01 Temperature Pulse Rate 92 H 92 H 93 H Respiratory Rate 29 H 18 14 Blood Pressure 118/68 133/63 Pulse Oximetry 97 94 L 94 L 05/06/18 23:00 05/06/18 23:01 05/07/18 00:00 Temperature 98.1 F Pulse Rate 93 H 90 89 Respiratory Rate 19 13 12 Blood Pressure 106/59 L Pulse Oximetry 94 L 96 96 05/07/18 00:01 05/07/18 01:00 05/07/18 01:01 Temperature Pulse Rate 91 H 87 85 Respiratory Rate 24 15 14 Blood Pressure 107/59 L 115/63 Pulse Oximetry 96 96 94 L 05/07/18 02:00 05/07/18 02:01 05/07/18 03:00 Temperature Pulse Rate 85 80 85 Respiratory Rate 13 12 13 Blood Pressure 115/63 Pulse Oximetry 96 96 96 05/07/18 03:01 05/07/18 04:00 05/07/18 04:02 Temperature 98.1 F Pulse Rate 80 85 90 Respiratory Rate 11 L Blood Pressure 120/60 113/70 Pulse Oximetry 96 90 L 05/07/18 05:00 05/07/18 05:01 05/07/18 05:57 Temperature Pulse Rate 91 H 89 87 Respiratory Rate 18 22 Blood Pressure 145/76 H Pulse Oximetry 98 98 05/07/18 06:00 05/07/18 06:01 05/07/18 07:00 Temperature Pulse Rate 87 88 77 Respiratory Rate 8 L 29 H 16 Blood Pressure 112/63 Pulse Oximetry 94 L 96 94 L 05/07/18 07:01 05/07/18 08:00 05/07/18 08:01 Temperature 98.0 F Pulse Rate 77 74 75 Respiratory Rate 16 13 15 Blood Pressure 115/69 126/71 Pulse Oximetry 97 96 94 L 05/07/18 08:43 05/07/18 09:06 05/07/18 09:07 Temperature Pulse Rate 82 85 Respiratory Rate 30 H 15 Blood Pressure 140/74 Pulse Oximetry 96 05/07/18 09:30 05/07/18 09:45 05/07/18 09:59 Temperature Pulse Rate 91 H Respiratory Rate 25 H 22 Blood Pressure 154/89 H Pulse Oximetry 93 L 05/07/18 10:00 05/07/18 10:01 05/07/18 11:00 Temperature Pulse Rate 94 H 94 H 88 Respiratory Rate 39 H 23 21 Blood Pressure 154/96 H Pulse Oximetry 97 97 05/07/18 11:01 Temperature Pulse Rate 92 H Respiratory Rate 32 H Blood Pressure 160/94 H Pulse Oximetry 95 Intake & Output 05/06/18 05/07/18 05/07/18 18:59 06:59 18:59 Intake Total 500 / 500 Output Total 1850 / 1850 1875 / 1875 Balance -1850 / -1850 -1375 / -1375 Weight 140.5 kg 138.5 kg Intake: IV 260 / 260 NS Inj 1,000 ML @ 75 mls/hr IV. 260 / 260 CONT .[id number] TANA Rx#:[id number] Oral 240 / 240 Output: Urine Amount (Catheter) 1799 Indwelling Urethral Catheter 1799 Wound Drainage 50 / 50 # 1 Neck 50 / 50 Other: Date of Last Bowel Movement 05/02/18 05/07/18 # Bowel Movements 1 Narrative: A&O x 3 CN II-XII intact Motor upper extremity strength improved to 5/5 Lower extremities still c/o back pain Has limited range of motion of neck as expected postoperative - Urinary Catheter Management Indwelling Urethral Catheter Cath placed during this visit: yes, but has since been removed by the nurse Reason for continuing: Acute urinary retention Insertion date: 05/05/18 Insertion time: 06:20 Removal date: 05/04/18 Removal time: 15:30 Assessment and Plan - Plan MRI C-spine: tight stenosis adjacent to prior fusion at C5/6 level posteriorly and anteriorly with cord signal change 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 Plan: Sunday05/03/18 OR for posterior cervical decompression and fusion C5/6 + lumbar decompression L2/3, L3/4, and L4/5 laminectomies Neuromonitoring, prone in pins Patient understands risks of surgery and wishes to proceed. Consent signed orders placed for npo, hibiclens bath, vanco OCTOR. Admit for Pain control-- appreciate help of hospitalist service -- appears stable and comfortable [place] J collar ordered-- patient may wear if it makes him more comfortable but this is not necessary -- appears not helping tremendously Patient will need likely need rehab after surgery / PT/OT, may ambulate as tolerated with assistance before and afterward 05/04/18 NORI drain putting out-- H/H 10 from 15, will recheck tomorrow Pain: Morphine PRETZEL PACKER + switched to Lyssa-- consider Dilaudid po and/or Dilaudid web programmer Ambulate -- collar when OOB -- PT to assist Appreciate ISC and Medicine assistance 05/05/18 Switch to Dilaudid PRETZEL PACKER + Lyssa C-spine xrays and CT today Collar when OOB -- Shameka [place] adjust front per [facility] Appreciate Medicine Assistance. 05/06/18 Dilaudid PRETZEL PACKER seems to be working better + oral Dilaudid C-spine xray and CT look good Mobilize with PT as tolerated Appreciate Medicine Assistance. 05/07/18 continue postoperative care, dw patient weaning off Dilauded PRETZEL PACKER, continue on oral Dilauded cont bowel regimen encourage mobilization cervical collar on as needed for comfort ? dc gould catheter - will clear with medicine team dw nursing
--- NOTE | 2018-05-07 17:23 | P.PNIM ---
Subjective Interval history: Pt had vomiting today, several times He had one BM today Pt still complains of low back pain Physical Exam Vital signs: Last Vital Signs Temp 98.8 F 05/07/18 16:00 Pulse 93 H 05/07/18 16:01 Resp 12 05/07/18 16:01 BP 174/88 H 05/07/18 16:01 Pulse Ox 94 L 05/07/18 16:01 Narrative: General: NAD, AAOx3 Cardiac: Regular Lung: CTA Abd: Decreased BS, soft, mildly distended, NT Ext: No edema Results Labs CBC & Chem 7: 05/07/18 06:15 05/08/18 12:26 Assessment and Plan Plan Cervical myelopathy Ileus - Pt is a 57 yo male with hx ACDF C5/6 and lumbar surgery. He has had progressive lower extremity weakness and now some urine incontinence and pain which prompted his evaluation in the ED on 05/01/18. - Cervical Spine MRI (05/01/18): 1. Significant thecal sac stenosis and flattening of the spinal cord at C5- 6. 2. Slight thecal sac stenosis C3-4 to C7. 3. Neural foraminal compromise bilateral C5-6 and C6-C7. - Lumbar Spine MRI (05/01/18): 1. Slight overall thecal sac stenosis L1-2. 2. Moderate overall thecal sac stenosis L2-3 and L3-4. 3. Significant thecal sac stenosis L4-5. 4. Bilateral neural foraminal compromise L2-3, L3-4, L4-5, L5-S1. - Neurosurgery is following - Pt underwent C3-7 Laminectomy/C3-T1 posterior spinal fusion/C3, C4, C5, C6 lateral mass screws on 05/03/[address] Schwartz - On 05/05/18 pt had severe neck pain. Dr Schwartz saw him and ordered: Cervical Spine CT (05/05/18) 1. Vertebral bodies are in normal alignment. Surgical changes in posterior elements of the mid and lower cervical spine have an expected appearance. No evidence of spondylolisthesis. Cervical Spine X-Ray (05/05/18): 1. Anterior and posterior cervical fixation, as above. - The Morphine TELECOMMUNICATIONS ENGINEER was changed to Dilaudid TELECOMMUNICATIONS ENGINEER and oral Dilaudid - PT daily - Constipation meds ordered - KUB (05/07/18): 1. Limited examination due to patient's body habitus. 2.Multiple loops of slightly distended air-filled small bowel throughout the mid abdomen concerning for adynamic ileus versus developing partial small bowel obstruction - Pt needs to minimize narcotics, mobilize as much as he can tolerate - KUB in AM - Pt to have assistance with eating meals. - Zofran PRN and Reglan PRN ordered for any N/V - DVT prophylaxis Severe lumbar spinal stenosis - Neurosurgery is holding off on laminectomies from L2-5 for now Attending Attestation The exam, history, and the medical decision-making described in the above note were completed with the assistance of the mid-level provider. I reviewed and agree with the findings presented. I attest that I had a [id number] encounter with the patient on the same day, and personally performed and documented my assessment and findings in the medical record. Patient examined. Assessment and plan formulated with Rachael Marie PA-C. I agree with the above. Pt with vomiting today. No relief with zofran/reglan scant bowel sounds, abdomen distended KUB (05/07) --> ileus NGT NPO IVFs KUB in AM CBC, BMP, Mag in AM Progress Note: Quality VTE Deep Vein Thrombosis/Pulmonary Embolism Present on Admission: No
[2018-05-07] MEDS: KCL 20 mEq/NACL 0.45% Inj 1,000 ML IV.CONT SCH (19:51)
[2018-05-07] MEDS ORDERED: Methylnaltrexone Inj 12 MG/0.6 ML Vial SQ ONE (20:00)
[2018-05-08] MEDS: Acetaminophen 325 MG Tablet PO SCH ×3 (02:37→13:08)
--- NOTE | 2018-05-08 05:24 | XR ---
EXAM DATE: 05/08/2018 4:52 AM EST AGE/SEX: 57 years / Male INDICATIONS: Ileus. CLINICAL DATA: This is the patient's subsequent encounter. Patient reports that signs and symptoms h ave been present for 1 week and indicates a pain score of 5/10. MEDICAL/SURGICAL HISTORY: None. . C5-C6 Anterior cervical disc fusion. C3-T1 Posterior cervical disc fusion. COMPARISON: [facility] [place], ABDOMEN 1V KUB, 05/07/2018. . FINDINGS: Examination is limited by patient's body habitus. There has been interval placement of an NGT in the stomach. There is interval improvement in previously noted loops of distended air-filled small bowel in the midabdomen. Air is seen in the colon extending to the distal descending colon. Remainder of t he exam is unchanged. CONCLUSION: 1. Improved gaseous distention of small bowel loops in the midabdomen following NG tube decompressio n. Electronically signed by: Edis Stevens MD Board Certified Radiologist 05/08/2018 5:22 AM EST
[2018-05-08 07:10] LABS: Baso % (Auto) 0.1 % (0.0-2.0); Hematocrit 31.6 % (39.0-51.0); Hemoglobin 10.7 gm/dL (13.0-17.0); Lymph # (Auto) 1.1 th/mm3 (1.0-4.8); Lymph % (Auto) 11.2 % (9.0-44.0); Mean Corpuscular HGB Conc 33.9 % (32.0-36.0); Mean Corpuscular Hemoglobin 29.8 pg (27.0-34.0); Mean Corpuscular Volume 87.9 fL (80.0-100.0); Mean Platelet Volume 8.3 fL (7.0-11.0); Mono # (Auto) 0.6 th/mm3 (0.0-0.9); Mono % (Auto) 5.9 % (0.0-8.0); Neut # (Auto) 8.3 th/mm3 (1.8-7.7); Neut % (Auto) 82.8 % (16.0-70.0); Platelet Count 271 th/mm3 (150-450)
[2018-05-08] MEDS: Lidocaine 5% Patch T-DERMAL SCH (10:15)
[2018-05-08] MEDS: Enoxaparin Inj 40 MG/0.4 ML Syringe SQ SCH (10:16)
[2018-05-08] MEDS: Gabapentin 300 MG Capsule PO SCH ×3 (10:16→18:39)
[2018-05-08] MEDS: KCL 20 mEq/NACL 0.45% Inj 1,000 ML IV.CONT SCH ×2 (10:21→21:25)
[2018-05-08] MEDS: Sod Chloride 0.9% Inj 1,000 ML IV.CONT SCH (10:22)
[2018-05-08 13:14] LABS: Calcium 8.3 mg/dL (8.5-10.1); Carbon Dioxide 28.8 meq/L (21.0-32.0); Magnesium 2.4 mg/dL (1.5-2.5); Potassium 4.6 meq/L (3.5-5.1)
--- NOTE | 2018-05-08 13:25 | P.PNNS ---
Subjective Interval history: upper extremity strength improved, stable postoperative cervical pain. continues to complain of chronic low back pain Physical Exam Vital signs: Vital Signs 05/07/18 14:00 05/07/18 14:01 05/07/18 15:00 Temperature Pulse Rate 88 84 75 Respiratory Rate 17 21 15 Blood Pressure 137/82 Pulse Oximetry 90 L 89 L 96 05/07/18 15:01 05/07/18 16:00 05/07/18 16:01 Temperature 98.8 F Pulse Rate 74 91 H 93 H Respiratory Rate 16 9 L 12 Blood Pressure 140/79 174/88 H Pulse Oximetry 96 94 L 94 L 05/07/18 17:00 05/07/18 18:00 05/07/18 18:01 Temperature Pulse Rate 89 88 92 H Respiratory Rate 27 H Blood Pressure 100/57 L Pulse Oximetry 95 96 94 L 05/07/18 19:45 05/07/18 20:00 05/07/18 20:01 Temperature 98.0 F Pulse Rate 94 H 95 H 88 Respiratory Rate 20 13 Blood Pressure 141/77 H Pulse Oximetry 93 L 93 L 05/07/18 21:00 05/07/18 21:01 05/07/18 21:59 Temperature Pulse Rate 81 80 100 H Respiratory Rate 12 13 19 Blood Pressure 133/75 Pulse Oximetry 96 96 05/07/18 22:00 05/07/18 22:02 05/07/18 22:03 Temperature Pulse Rate 75 85 Respiratory Rate 17 Blood Pressure 141/92 H Pulse Oximetry 05/07/18 23:00 05/07/18 23:01 05/08/18 00:00 Temperature 97.9 F Pulse Rate 77 73 72 Respiratory Rate 15 12 12 Blood Pressure 144/65 H Pulse Oximetry 97 96 97 05/08/18 00:01 05/08/18 01:00 05/08/18 01:01 Temperature Pulse Rate 72 69 67 Respiratory Rate 14 14 14 Blood Pressure 127/68 125/57 L Pulse Oximetry 95 92 L 94 L 05/08/18 02:00 05/08/18 02:01 05/08/18 03:00 Temperature Pulse Rate 71 69 70 Respiratory Rate 14 14 13 Blood Pressure 115/58 L Pulse Oximetry 98 95 05/08/18 03:01 05/08/18 04:00 05/08/18 04:01 Temperature 98.0 F Pulse Rate 69 61 62 Respiratory Rate 14 13 13 Blood Pressure 128/60 125/61 Pulse Oximetry 94 L 97 96 05/08/18 05:00 05/08/18 05:01 05/08/18 06:00 Temperature Pulse Rate 66 72 62 Respiratory Rate 13 12 12 Blood Pressure 128/62 Pulse Oximetry 97 97 97 05/08/18 06:01 Temperature Pulse Rate 63 Respiratory Rate Blood Pressure 135/70 Pulse Oximetry 97 Intake & Output 05/07/18 05/08/18 05/08/18 18:59 06:59 18:59 Intake Total 845 / 845 1000 / 1000 Output Total 500 / 500 600 / 600 Balance -500 / -500 245 / 245 1000 / 1000 Weight 133.5 kg Intake: IV 845 / 845 1000 / 1000 Potassium Chlor 20 mEq/NACL 0. 845 / 845 1000 / 1000 45% Inj 1,000 ML @ 84 mls/hr IV .CONT .[id number] [facility] Rx#:[id number] Output: Urine Amount (Catheter) 500 / 500 Indwelling Urethral Catheter 500 / 500 Gastric Drainage 600 / 600 Left Nare Nasogastric Tube 600 / 600 Other: # Voids 3 3 Date of Last Bowel Movement 05/07/18 05/08/18 # Bowel Movements 3 2 Narrative: A&O x 3 CN II-XII intact Motor upper extremity strength improved to 5/5 Lower extremities still c/o back pain Has limited range of motion of neck as expected postoperative - Urinary Catheter Management Indwelling Urethral Catheter Cath placed during this visit: yes, but has since been removed by the nurse Reason for continuing: Acute urinary retention Insertion date: 05/05/18 Insertion time: 06:20 Removal date: 05/04/18 Removal time: 15:30 Assessment and Plan - Plan MRI C-spine: tight stenosis adjacent to prior fusion at C5/6 level posteriorly and anteriorly with cord signal change 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 Plan: Sunday05/03/18 OR for posterior cervical decompression and fusion C5/6 + lumbar decompression L2/3, L3/4, and L4/5 laminectomies Neuromonitoring, prone in pins Patient understands risks of surgery and wishes to proceed. Consent signed orders placed for npo, hibiclens bath, vanco OCTOR. Admit for Pain control-- appreciate help of hospitalist service -- appears stable and comfortable [place] J collar ordered-- patient may wear if it makes him more comfortable but this is not necessary -- appears not helping tremendously Patient will need likely need rehab after surgery / PT/OT, may ambulate as tolerated with assistance before and afterward 05/04/18 NORI drain putting out-- H/H 10 from 15, will recheck tomorrow Pain: Morphine ONCOLOGY ACCOUNT SPECIALIST + switched to Lyssa-- consider Dilaudid po and/or Dilaudid upholstery sewer Ambulate -- collar when OOB -- PT to assist Appreciate ISC and Medicine assistance 05/05/18 Switch to Dilaudid ONCOLOGY ACCOUNT SPECIALIST + Lyssa C-spine xrays and CT today Collar when OOB -- [place] J adjust front per [employer] Appreciate Medicine Assistance. 05/06/18 Dilaudid ONCOLOGY ACCOUNT SPECIALIST seems to be working better + oral Dilaudid C-spine xray and CT look good Mobilize with PT as tolerated Appreciate Medicine Assistance. 05/07/18 continue postoperative care, dw patient weaning off Dilauded ONCOLOGY ACCOUNT SPECIALIST, continue on oral Dilauded cont bowel regimen encourage mobilization cervical collar on as needed for comfort ? dc gould catheter - will clear with medicine team dw nursing 05/08/18 dc dilauded ONCOLOGY ACCOUNT SPECIALIST, cont oral pain meds prn clear to transfer out of unit cont therapy, encourage mobilization dc planning follow up [facility] NRS office 05/16/18 for staple removal will follow
--- NOTE | 2018-05-08 17:01 | P.PNIM ---
Subjective Interval history: Pt feels much more comfortable. Pt reports that he had 2 BMs today. NGT with dark blood in tubing. Physical Exam Vital signs: Last Vital Signs Temp 97.9 F 05/08/18 12:00 Pulse 68 05/08/18 16:00 Resp 29 H 05/08/18 16:00 BP 147/73 H 05/08/18 15:01 Pulse Ox 100 05/08/18 16:00 Narrative: General: NAD, AAOx3 Cardiac: Regular Lung: CTA Abd: improved, distention improved, scant bowel sounds, no g/r/r dark blood in NGT Ext: No edema Results Labs CBC & Chem 7: 05/07/18 06:15 05/08/18 12:26 Assessment and Plan Plan Cervical myelopathy Ileus - Pt is a 57 yo male with hx ACDF C5/6 and lumbar surgery. He has had progressive lower extremity weakness and now some urine incontinence and pain which prompted his evaluation in the ED on 05/01/18. - Cervical Spine MRI (05/01/18): 1. Significant thecal sac stenosis and flattening of the spinal cord at C5- 6. 2. Slight thecal sac stenosis C3-4 to C7. 3. Neural foraminal compromise bilateral C5-6 and C6-C7. - Lumbar Spine MRI (05/01/18): 1. Slight overall thecal sac stenosis L1-2. 2. Moderate overall thecal sac stenosis L2-3 and L3-4. 3. Significant thecal sac stenosis L4-5. 4. Bilateral neural foraminal compromise L2-3, L3-4, L4-5, L5-S1. - Neurosurgery is following - Pt underwent C3-7 Laminectomy/C3-T1 posterior spinal fusion/C3, C4, C5, C6 lateral mass screws on 05/03/[address] Schwartz - On 05/05/18 pt had severe neck pain. Dr Schwartz saw him and ordered: Cervical Spine CT (05/05/18) 1. Vertebral bodies are in normal alignment. Surgical changes in posterior elements of the mid and lower cervical spine have an expected appearance. No evidence of spondylolisthesis. Cervical Spine X-Ray (05/05/18): 1. Anterior and posterior cervical fixation, as above. - narcotics stopped - tylenol prn - stool softeners - laxitives prn - PT daily - Constipation meds ordered - narcotics stopped - KUB (05/07/18): 1. Limited examination due to patient's body habitus. 2.Multiple loops of slightly distended air-filled small bowel throughout the mid abdomen concerning for adynamic ileus versus developing partial small bowel obstruction - KUB (05/08/18) --> ileus improved - DVT prophylaxis 2) Ileus - improving - see above - narcotics stopped - NGT clamped - repeat KUB in AM - dark blook in NG tubing - obtain stat CBC - repeat CBC in AM - start IV protonix Severe lumbar spinal stenosis - Neurosurgery is holding off on laminectomies from L2-5 for now - case d/w Dr. Schwartz (05/08/18) - anticipate d/c to home in 2-3 days. Progress Note: Quality VTE Deep Vein Thrombosis/Pulmonary Embolism Present on Admission: No
[2018-05-08 17:53] LABS: Baso % (Auto) 0.1 % (0.0-2.0); Hematocrit 34.8 % (39.0-51.0); Hemoglobin 11.8 gm/dL (13.0-17.0); Lymph # (Auto) 1.6 th/mm3 (1.0-4.8); Lymph % (Auto) 13.2 % (9.0-44.0); Mean Corpuscular HGB Conc 33.8 % (32.0-36.0); Mean Corpuscular Hemoglobin 29.3 pg (27.0-34.0); Mean Corpuscular Volume 86.7 fL (80.0-100.0); Mean Platelet Volume 8.2 fL (7.0-11.0); Mono # (Auto) 0.6 th/mm3 (0.0-0.9); Mono % (Auto) 4.9 % (0.0-8.0); Neut # (Auto) 9.9 th/mm3 (1.8-7.7); Neut % (Auto) 81.8 % (16.0-70.0); Platelet Count 361 th/mm3 (150-450); Red Blood Count 4.02 mil/mm3 (4.50-5.90); Red Cell Distribution Width 14.3 % (11.6-17.2); White Blood Count 12.2 th/mm3 (4.0-11.0)
[2018-05-08] MEDS ORDERED: Acetaminophen 325 MG Tablet PO PRN (18:02)
[2018-05-08] MEDS: Pantoprazole Inj 40 MG Vial IV.PUSH SCH (18:38)
[2018-05-09] MEDS: Sod Chloride 0.9% Inj 1,000 ML IV.CONT SCH ×2 (00:25→12:15)
[2018-05-09 04:21] LABS: Baso % (Auto) 0.2 % (0.0-2.0); Hematocrit 31.1 % (39.0-51.0); Hemoglobin 10.8 gm/dL (13.0-17.0); Lymph # (Auto) 1.4 th/mm3 (1.0-4.8); Mean Corpuscular HGB Conc 34.8 % (32.0-36.0); Mean Corpuscular Volume 88.9 fL (80.0-100.0); Mean Platelet Volume 8.1 fL (7.0-11.0); Mono # (Auto) 0.7 th/mm3 (0.0-0.9); Mono % (Auto) 6.7 % (0.0-8.0); Neut % (Auto) 79.1 % (16.0-70.0); Platelet Count 301 th/mm3 (150-450); Red Cell Distribution Width 14.2 % (11.6-17.2); White Blood Count 10.1 th/mm3 (4.0-11.0)
[2018-05-09 04:51] LABS: Anion Gap 9 meq/L (5-15); Blood Urea Nitrogen 16 mg/dL (7-18); Calcium 8.3 mg/dL (8.5-10.1); Carbon Dioxide 24.3 meq/L (21.0-32.0); Chloride 110 meq/L (98-107); Glomerular Filtration Rate Greater Than 89 mL/min (>89); Glucose,Random 135 mg/dL (74-106); Potassium 4.3 meq/L (3.5-5.1); Sodium 143 meq/L (136-145)
[2018-05-09] MEDS: Pantoprazole Inj 40 MG Vial IV.PUSH SCH ×2 (06:07→17:33)
[2018-05-09] MEDS: KCL 20 mEq/NACL 0.45% Inj 1,000 ML IV.CONT SCH ×2 (06:13→19:47)
--- NOTE | 2018-05-09 10:42 | P.PNIM ---
Subjective Interval history: Patient able to tolerate clear liquid diet with NG tube clamped Physical Exam Vital signs: Last Vital Signs Temp 97.5 F L 05/09/18 07:22 Pulse 61 05/09/18 07:22 Resp 18 05/09/18 07:22 BP 138/70 05/09/18 07:22 Pulse Ox 97 05/09/18 07:22 Narrative: General: NAD, AAOx3 Cardiac: Regular Lung: CTA Abd: improved, distention improved, normoactive bowel sounds dark blood in NGT Ext: No edema Results Labs CBC & Chem 7: 05/09/18 03:53 05/09/18 03:53 Assessment and Plan Plan Cervical myelopathy Ileus - Pt is a 57 yo male with hx ACDF C5/6 and lumbar surgery. He has had progressive lower extremity weakness and now some urine incontinence and pain which prompted his evaluation in the ED on 05/01/18. - Cervical Spine MRI (05/01/18): 1. Significant thecal sac stenosis and flattening of the spinal cord at C5- 6. 2. Slight thecal sac stenosis C3-4 to C7. 3. Neural foraminal compromise bilateral C5-6 and C6-C7. - Lumbar Spine MRI (05/01/18): 1. Slight overall thecal sac stenosis L1-2. 2. Moderate overall thecal sac stenosis L2-3 and L3-4. 3. Significant thecal sac stenosis L4-5. 4. Bilateral neural foraminal compromise L2-3, L3-4, L4-5, L5-S1. - Neurosurgery is following - Pt underwent C3-7 Laminectomy/C3-T1 posterior spinal fusion/C3, C4, C5, C6 lateral mass screws on 05/03/[address] Schwartz - On 05/05/18 pt had severe neck pain. Dr Schwartz saw him and ordered: Cervical Spine CT (05/05/18) 1. Vertebral bodies are in normal alignment. Surgical changes in posterior elements of the mid and lower cervical spine have an expected appearance. No evidence of spondylolisthesis. Cervical Spine X-Ray (05/05/18): 1. Anterior and posterior cervical fixation, as above. - narcotics stopped - tylenol prn - stool softeners - laxitives prn - PT daily - Constipation meds ordered - narcotics stopped - KUB (05/07/18): 1. Limited examination due to patient's body habitus. 2.Multiple loops of slightly distended air-filled small bowel throughout the mid abdomen concerning for adynamic ileus versus developing partial small bowel obstruction - KUB (05/08/18) --> ileus improved - repeat KUB (05/09/18) -> pending - patient tolerated clear liquid diet with NG tube clamped - remove NG tube - slowly advance diet - DVT prophylaxis 2) Ileus - improving - see above - narcotics stopped - repeat KUB (05/09/18) -> pending - patient tolerated clear liquid diet with NG tube clamped - remove NG tube - slowly advance diet - dark blook in NG tubing 05/08 - hemoglobin stable - continue IV protonix Severe lumbar spinal stenosis - Neurosurgery is holding off on laminectomies from L2-5 for now - case d/w Dr. Schwartz (05/08/18) - anticipate d/c to SNF vs home with HHC once cleared by neurosurgery Progress Note: Quality VTE Deep Vein Thrombosis/Pulmonary Embolism Present on Admission: No
[2018-05-09] MEDS: Lidocaine 5% Patch T-DERMAL SCH (11:30)
[2018-05-09] MEDS: Gabapentin 300 MG Capsule PO SCH ×3 (11:30→17:34)
--- NOTE | 2018-05-09 11:45 | XR ---
EXAM DATE: 05/09/2018 11:16 AM EST AGE/SEX: 57 years / Male INDICATIONS: Ileus. CLINICAL DATA: This is the patient's subsequent encounter. Patient reports that signs and symptoms h ave been present for 1 week and indicates a pain score of 5/10. MEDICAL/SURGICAL HISTORY: None. . C5-C6 Anterior cervical disc fusion. C3-T1 Posterior cervical disc fusion. [place] [facility] [place]UB[place]. . FINDINGS: The abdominal bowel gas pattern is normal. No abnormal masses, calcifications, or organomegaly is s een. The osseous structures are unremarkable. NG tube tip overlies the gastric air bubble. There are a few mildly prominent gas-filled loops of small bowel overlying the mid abdomen. CONCLUSION: Mild gaseous distention of small bowel loops. Electronically signed by: Kishore Bacon MD Board Certified Radiologist 05/09/2018 11:43 AM EST
[2018-05-09 12:58] VITALS: RESP 22
--- NOTE | 2018-05-09 13:59 | P.PNNS ---
Subjective Interval history: complains NG tube uncomfortable causing more pain, otherwise no changes neuro symptoms. Physical Exam Vital signs: Vital Signs 05/08/18 14:00 05/08/18 14:01 05/08/18 15:00 Temperature Pulse Rate 60 61 65 Respiratory Rate 14 19 11 L Blood Pressure 135/67 Pulse Oximetry 96 96 99 05/08/18 15:01 05/08/18 16:00 05/08/18 17:00 Temperature 98.0 F Pulse Rate 62 68 73 Respiratory Rate 11 L 29 H 22 Blood Pressure 147/73 H 113/79 Pulse Oximetry 99 100 99 05/08/18 20:53 05/09/18 00:20 05/09/18 07:22 Temperature 97.9 F 97.8 F 97.5 F L Pulse Rate 82 68 61 Respiratory Rate 18 18 18 Blood Pressure 127/67 153/66 H 138/70 Pulse Oximetry 99 97 97 05/09/18 12:00 Temperature 97.6 F Pulse Rate 68 Respiratory Rate 22 Blood Pressure 157/86 H Pulse Oximetry 98 Intake & Output 05/08/18 05/09/18 05/09/18 18:59 06:59 18:59 Intake Total 2258 / 2258 1000 / 1000 1000 / 1000 Balance 2258 / 2258 1000 / 1000 1000 / 1000 Intake: IV 1000 / 1000 1000 / 1000 1000 / 1000 Potassium Chlor 20 mEq/NACL 0. 1000 / 1000 1000 / 1000 45% Inj 1,000 ML @ 84 mls/hr IV .CONT .[id number] [facility] Rx#:[id number] NS Inj 1,000 ML @ 75 mls/hr IV. 1000 / 1000 CONT .[id number] [facility] Rx#:[id number] Oral 250 / 250 Other 1008 / 1008 Other: Other Intake Source Saline Solution # Voids 3 3 Date of Last Bowel Movement 05/08/18 Narrative: A&O x 3 Sitting up in chair CN II-XII intact Motor upper extremity strength improved to 5/5 Has limited range of motion of neck as expected postoperative wound clean and dry, rishi intact - Urinary Catheter Management Indwelling Urethral Catheter Cath placed during this visit: yes, but has since been removed by the nurse Reason for continuing: Acute urinary retention Insertion date: 05/05/18 Insertion time: 06:20 Removal date: 05/04/18 Removal time: 15:30 Assessment and Plan - Plan MRI C-spine: tight stenosis adjacent to prior fusion at C5/6 level posteriorly and anteriorly with cord signal change 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 Plan: Sunday05/03/18 OR for posterior cervical decompression and fusion C5/6 + lumbar decompression L2/3, L3/4, and L4/5 laminectomies Neuromonitoring, prone in pins Patient understands risks of surgery and wishes to proceed. Consent signed orders placed for npo, hibiclens bath, vanco OCTOR. Admit for Pain control-- appreciate help of hospitalist service -- appears stable and comfortable [place] J collar ordered-- patient may wear if it makes him more comfortable but this is not necessary -- appears not helping tremendously Patient will need likely need rehab after surgery / PT/OT, may ambulate as tolerated with assistance before and afterward 05/04/18 NORI drain putting out-- H/H 10 from , will recheck tomorrow Pain: Morphine HAND RIGGER + switched to Lyssa-- consider Dilaudid po and/or Dilaudid aquatic scientist Ambulate -- collar when OOB -- PT to assist Appreciate ISC and Medicine assistance 05/05/18 Switch to Dilaudid HAND RIGGER + Lyssa C-spine xrays and CT today Collar when OOB -- [place] J adjust front per [facility] Appreciate Medicine Assistance. 05/06/18 Dilaudid HAND RIGGER seems to be working better + oral Dilaudid C-spine xray and CT look good Mobilize with PT as tolerated Appreciate Medicine Assistance. 05/07/18 continue postoperative care, dw patient weaning off Dilauded HAND RIGGER, continue on oral Dilauded cont bowel regimen encourage mobilization cervical collar on as needed for comfort ? dc gould catheter - will clear with medicine team dw nursing 05/08/18 dc dilauded HAND RIGGER, cont oral pain meds prn clear to transfer out of unit cont therapy, encourage mobilization dc planning follow up UF NRS office 05/16/18 for staple removal will follow 05/09/18 patient clear for discharge rehab or C PT from NRS standpoint surgical rishi removed 05/16/18 follow up NRS office next week
--- NOTE | 2018-05-09 15:56 | P.DS ---
DS: Providers Date of admission: 05/01/18 19:17 Primary care physician: Lazaro Lowry Consults: 05/01/18 13:50 Consult to Neurosurgery Stat Consulting Provider: Madan Howard For STAT consult, spoke directly to:: Efren Reason for Consultation: cord compression Notified:: Physician Spoke with:: DR. HOWARD Date Notified:: 05/01/18 Time Notified:: 14:43 Ordering Provider: CAROLYN 05/03/18 13:37 Consult to Accounting Manager Assistant Controller Routine Consulting Provider: Lilly Yoder Reason for Consultation: post-op C3-T1 fusion today, will come to ICU overnight, historically has been slow to extubate Notified:: Service Spoke with:: Echo Date Notified:: 05/03/18 Time Notified:: 13:42 Ordering Provider: JESSICA 05/06/18 15:37 HUB Only Consult Order Routine Consulting Provider: [facility] Reason for Consultation: C referral Brief History from admission: Pt is 57 yo with hx ACDF c5/6 and lumbar surgery. He has had progressive lower extremity weakness and now some urine incontinence and pain. MRI c and L spine in ED show concern for cervical myelopathy and severe lumbar stenosis. Seen by NSG in ED and pt to be admitted for surgical procedures on Sunday. Pt denies any cardiac or pulmonary diseases. PMH: cervical acdf lumbar surgery finger tip amputation. SH; no etoh/tob FH: NC Allergy. Pcn. Home meds. denies any prescribed or OTC meds. DS: Summary Cervical myelopathy Ileus - Pt is a 57 yo male with hx ACDF C5/6 and lumbar surgery. He has had progressive lower extremity weakness and now some urine incontinence and pain which prompted his evaluation in the ED on 05/01/18. - Cervical Spine MRI (05/01/18): 1. Significant thecal sac stenosis and flattening of the spinal cord at C5- 6. 2. Slight thecal sac stenosis C3-4 to C7. 3. Neural foraminal compromise bilateral C5-6 and C6-C7. - Lumbar Spine MRI (05/01/18): 1. Slight overall thecal sac stenosis L1-2. 2. Moderate overall thecal sac stenosis L2-3 and L3-4. 3. Significant thecal sac stenosis L4-5. 4. Bilateral neural foraminal compromise L2-3, L3-4, L4-5, L5-S1. - Neurosurgery is following - Pt underwent C3-7 Laminectomy/C3-T1 posterior spinal fusion/C3, C4, C5, C6 lateral mass screws on 05/03/[address] Howard - On 05/05/18 pt had severe neck pain. Dr Howard saw him and ordered: Cervical Spine CT (05/05/18) 1. Vertebral bodies are in normal alignment. Surgical changes in posterior elements of the mid and lower cervical spine have an expected appearance. No evidence of spondylolisthesis. Cervical Spine X-Ray (05/05/18): 1. Anterior and posterior cervical fixation, as above. - narcotics stopped - tylenol prn - stool softeners - laxitives prn - PT daily - Constipation meds ordered - narcotics stopped - KUB (05/07/18): 1. Limited examination due to patient's body habitus. 2.Multiple loops of slightly distended air-filled small bowel throughout the mid abdomen concerning for adynamic ileus versus developing partial small bowel obstruction - KUB (05/08/18) --> ileus improved - repeat KUB (05/09/18) -> pending - patient tolerated clear liquid diet with NG tube clamped - NG tube removed - diet advanced - DVT prophylaxis 2) Ileus - resolved - see above - narcotics stopped - repeat KUB (05/09/18) -> pending - patient tolerated clear liquid diet with NG tube clamped - removed NG tube - dark blook in NG tubing 05/08 - hemoglobin stable - continue protonix Severe lumbar spinal stenosis - Neurosurgery is holding off on laminectomies from L2-5 for now - case d/w Dr. Howard (05/08/18) - patient cleared for DC per neurosurgery - (05/09/18) Dr. Saldivar discussed case with Dr. Howard. OK to DC home and stop steroids Offered to DC patient home with HHC and PT. Patient refused HHC and home PT, will DC patient home. Time Spent with Patient Total time spent providing and/or coordinating discharge services: Quality: VTE Deep Vein Thrombosis/Pulmonary Embolism Present on Admission: No Exam Narrative Exam Narrative: General: NAD, AAOx3 Cardiac: Regular Lung: CTA Abd: improved, non distention improved, normoactive bowel sounds dark blood in NGT Ext: No edema Results Labs on day of discharge: Labs from last 24 hours 05/09/18 05/09/18 05/08/18 03:53 03:53 17:16 WBC 10.1 12.2 H RBC 3.50 L 4.02 L Hgb 10.8 L 11.8 L Hct 31.1 L 34.8 L MCV 88.9 86.7 MCH 31.0 29.3 MCHC 34.8 33.8 RDW 14.2 14.3 Plt Count 301 361 D MPV 8.1 8.2 Neut % (Auto) 79.1 H 81.8 H Lymph % (Auto) 14.0 13.2 [place] % (Auto) 6.7 4.9 Eos % (Auto) 0.0 0.0 Baso % (Auto) 0.2 0.1 Neut # (Auto) 8.0 H 9.9 H Lymph # (Auto) 1.4 1.6 [place] # (Auto) 0.7 0.6 Eos # (Auto) 0.0 0.0 Baso # (Auto) 0.0 0.0 WBC Differential . . Differential Comment Auto diff final Auto diff final Sodium 143 Potassium 4.3 Chloride 110 H Carbon Dioxide 24.3 Anion Gap 9 BUN 16 Creatinine 0.81 Estimated GFR Greater than 89 Random Glucose 135 H Calcium 8.3 L Impressions ITS Impressions Lumbar Spine X-Ray 05/01/18 00:00 CONCLUSION: No abnormal mobility. Cervical Spine MRI 05/01/18 13:43 CONCLUSION: 1. Significant thecal sac stenosis and flattening of the spinal cord at C5-6. 2. Slight thecal sac stenosis C3-4 to C7. 3. Neural foraminal compromise bilateral C5-6 and C6-C7. Thoracic Spine MRI 05/01/18 13:43 CONCLUSION: 1. Mild degenerative disc changes with no evidence of disc protrusion or spinal stenosis. Lumbar Spine MRI 05/01/18 13:44 CONCLUSION: 1. Slight overall thecal sac stenosis L1-2. 2. Moderate overall thecal sac stenosis L2-3 and L3-4. 3. Significant thecal sac stenosis L4-5. 4. Bilateral neural foraminal compromise L2-3, L3-4, L4-5, L5-S1. Cervical Spine CT 05/05/18 00:00 CONCLUSION: 1. Vertebral bodies are in normal alignment. Surgical changes in posterior elements of the mid and lower cervical spine have an expected appearance. No evidence of spondylolisthesis. Cervical Spine X-Ray 05/05/18 00:00 CONCLUSION: 1. Anterior and posterior cervical fixation, as above. Abdomen X-Ray 05/09/18 08:00 CONCLUSION: Mild gaseous distention of small bowel loops. Discharge Plan Discharge Disposition Patient Disposition: 01 Discharge Home Discharge Condition Condition: Stable Discharge Order Discharge Orders: Discharge Order (Routine); Ordered 05/09/18 Ordered By: Alaina Reyes Neurosurgery Clear for Discharge (Routine); Ordered 05/09/18 Ordered By: Alana Tavares Physicians Team ED Provider: John Thompson Primary Care Provider: Lazaro Lowry Attending Provider: Jimenez Goodwin Other Providers: Madan Howard ; Lilly Yoder ; [facility] Rxs /Orders / Referrals /Forms Prescriptions: New gabapentin [Neurontin] 300 mg Capsule 300 mg PO TID 10 Days Qty: 30 RF: 0 pantoprazole [Protonix] 40 mg tablet,delayed release (DR/EC) 40 mg PO DAILY Qty: 14 RF: 0 Referrals: Madan Howard MD [Physician] - See Instructions ( follow up Neurosurgery office 05/16/18 for staple removal) Lazaro Lowry MD [Primary Care Provider] - See Instructions (follow up in 1 week) Discharge Instructions Additional Instructions: activity per neurosurgery Status ED Status: Left Department
[2018-05-09 16:07] VITALS: BP 129/85; PULSE 69; TEMP 97.8; O2SAT 97
== END 2018-05-09 18:48 | disposition home or self-care (01) | DRG 472 ==
LOC: NEPE 12:57 → NEDA 19:17 → N07 22:20 → N03 05-03 13:39 → N05 05-08 17:14
PROVIDERS: ADMIT Hospitalist; ATTEND Hospitalist
DX: R32 Unspecified urinary incontinence; M48.02 Spinal stenosis, cervical region; Z98.1 Arthrodesis status; K56.7 Ileus, unspecified; R53.1 Weakness; M48.061 Spinal stenosis, lumbar region without neurogenic claudication; M47.12 Other spondylosis with myelopathy, cervical region
CPT/HCPCS: 72040; 72120; 72125; 72141; 72146; 72148; 74000; 74018; 76000; 80048; 81001; 82040; 82948; 82962; 83735; 85025; 85610; 85730; 87641; 90774; 90775; 90776; 90784; 93005; 96374; 96375; 96376; 97110; 97116; 97161; 97164; 99285; C1713; C8952; C9113; J0131; J1100; J1170; J1650; J2212; J2270; J2405; J2704; J2765; J3010; J3370; J3480; J7030; J7050; J7120; J8540; L0150; L0172

== ENCOUNTER 2018-06-12 05:42 | Inpatient (IN) ==
[2018-06-12] MEDS ORDERED: Sodium Chlor 0.9% Inj 500 ML IV.CONT ONE (07:15)
[2018-06-12] MEDS ORDERED: Chlorhexidine Gluconate 2% 1 Pack (2 Cloths) TOPICAL ONE (07:15)
[2018-06-12] MEDS ORDERED: Sod Chloride 0.9% Inj 1,000 ML IV.SIG SCH (07:15)
[2018-06-12] MEDS ORDERED: Metoprolol Tartrate 25 MG Tablet PO ONE (07:15)
[2018-06-12] MEDS ORDERED: Lidocaine 1% Inj 50 ML Vial ONE (07:47)
[2018-06-12] MEDS ORDERED: Gelatin Size 100 Topical Foam ONE (07:47)
[2018-06-12] MEDS ORDERED: Bupivacaine/Epinephrine PF Inj 0.5% 30 ML Vial ONE (07:47)
[2018-06-12] MEDS ORDERED: Vancomycin Inj 1,000 MG in Sodium Chlor 0.9% Inj 250 ML IV.SIG SCH ×2 (08:00→20:00)
[2018-06-12] MEDS ORDERED: Neostigmine Inj 5 MG/5 ML Syringe IV.PUSH ONE (08:03)
[2018-06-12] MEDS ORDERED: Phenylephrine/NS 1000 MCG/10ML Syringe IV.PUSH ONE (08:03)
[2018-06-12] MEDS ORDERED: Lidocaine PF 1% Inj 5 ML Syringe OTHER ONE (08:03)
[2018-06-12] MEDS ORDERED: Glycopyrrolate Inj 1 MG/5 ML Syringe IV.PUSH ONE (08:03)
[2018-06-12] MEDS ORDERED: HYDROmorphone PF Inj 2 MG/ML Vial ONE (08:05)
[2018-06-12] MEDS ORDERED: Chlorhexidine Gluconate 2% 1 Pack (2 Cloths) TOPICAL SCH (09:00)
[2018-06-12] MEDS ORDERED: Thrombin Topical Soln 5,000 UNIT Vial TOPICAL ONE (09:02)
[2018-06-12] MEDS ORDERED: fentaNYL Citrate Inj 100 MCG/2 ML Ampul ONE (09:22)
[2018-06-12] MEDS ORDERED: Bupivacaine Liposomal PF 1.3% Inj 20 ML Vial ONE (11:33)
[2018-06-12] MEDS ORDERED: Bupivacaine Liposomal PF 1.3% Inj 20 ML Vial INFILTRATN ONE (12:06)
[2018-06-12] MEDS ORDERED: Acetaminophen 325 MG Tablet PO PRN (12:34)
[2018-06-12] MEDS ORDERED: Naloxone Inj 0.4 MG/ML Vial IV.PUSH PRN (12:34)
[2018-06-12] MEDS ORDERED: Bisacodyl 10 MG Supp RECTAL PRN (12:34)
[2018-06-12] MEDS ORDERED: Morphine Sulfate Inj 2 MG/ML Vial IV.PUSH PRN (12:34)
--- NOTE | 2018-06-12 12:46 | P.OP ---
- Preoperative Diagnosis (1) Lumbar stenosis - Postoperative Diagnosis (1) Lumbar stenosis Date of procedure: 06/12/18 Procedure: L2/3, L3/4, L4/5, L5/S1 open laminectomy Placement of lumbar drain L1/2 using fluoroscopic guidance and microscope Repair of CSF leak L4/5 using microscope Anesthesia: RA Surgeon: Madan Schwartz MD Estimated blood loss (mL): 300 Operation and Findings: Indications: This is a 57year old man who had prior lumbar surgery at L4/5 and prior cervical surgery. Recently, he has had progressive back pain and underwent posterior cervical decompression and fusion due to signs of myelopathy and upper arm weakness. This improved. His back pain persisted and he has multilevel lumbar stenosis. Decompression is indicated. Description of Procedure: Patient was brought to Main OR and the procedure done under general. Gamble was placed. He was placed in prone position, all pressure points padded. Mid lumbar spine was prepped and draped in the usual sterile fashion. Incision infiltrated with local anesthetic, then opened sharply. Fluoroscopy was used to confirm L2 to S1 spinous processes. Subperiosteal dissection was undertaken out to the lamina bilaterally from L2 to S1. Spinous processes were removed using Leksell rongeur. Intervening ligamentum flavum was removed using curettes and punch rongeurs. Bone was kept in place between the interlaminar spaces. Decompression carried out from L5/S1 rostrally to L2/3. At L4/5, there was scar and noted large dural defect on the right side with exposure of nerve root. After completing all decompressions, the microscope was brought into the field. There was no dural edge to sew to, so a muscle patch was placed with overlying Tisseal to fit the bony interlaminar defect, with no further egress of CSF. A lumbar drain was placed at L1/2 rostral to the L2 spinous process using fluoroscopic guidance with good flow of CSF. This was tunneled left laterally and secured to the skin using Nylon suture. Wound copiously irrigated with antibiotic irrigation throughout the case. Bone autograft was placed along the edges of the lamina bilaterally for posterolateral fusion. Wound closed carefully in several layers starting with muscle between the interspinous defects. Vancomycin powder was used but irrigated out. Exparel was used at the end for deep muscle and subcutaneous. Wound was closed in layers with 0-Vicryl for deep to superficial fascia and inverted 2-0 Vicryl for subcutaneous followed by monocril and dermabond for final skin closure. Lumbar drain secured. Patient returned supine, lightened from anesthesia and taken to recovery in stable condition. All sponge and needle counts correct. No periprocedural complications except dural tear requiring lumbar drain. Plan to stay HOB 0-30 until Saturday (3 days) to enable scar formation. EBL 300cc. Dr. Schwartz present and scrubbed for the entire procedure.
--- NOTE | 2018-06-12 13:13 | XR ---
EXAM DATE: 06/12/2018 1:02 PM EST AGE/SEX: 57 years / Male INDICATIONS: Laminectomy, diskectomy. CLINICAL DATA: This is the patient's initial encounter. Patient reports that signs and symptoms have been present for 1 day and indicates a pain score of 0/10. MEDICAL/SURGICAL HISTORY: None. None. COMPARISON: [facility] [place] FLX /EXT ONLY, 05/01/2018. . FINDINGS: Metallic probe is directed at L3-4. CONCLUSION: Probe as above Electronically signed by: Ángel Vitale MD Board Certified Radiologist 06/12/2018 1:12 PM EST
[2018-06-12] MEDS: Sod Chloride 0.9% Inj 1,000 ML IV.CONT SCH ×2 (13:40→23:00)
[2018-06-12] MEDS ORDERED: *morphine SULFATE 4 MG/ML PERIprocedure ONLY ONE ×2 (13:43→14:00)
[2018-06-12] MEDS: HYDROmorphone PCA Inj 6 MG/30 ML PCA.VIAL PCA PRN (14:30)
[2018-06-12] MEDS: Gabapentin 300 MG Capsule PO SCH (20:58)
[2018-06-12] MEDS: Senna/Docusate Sodium 8.6/50 MG Tablet PO SCH (20:59)
[2018-06-13 07:21] LABS: Baso % (Auto) 0.2 % (0.0-2.0); Eos % (Auto) 0.1 % (0.0-4.0); Hematocrit 33.3 % (39.0-51.0); Lymph # (Auto) 1.7 th/mm3 (1.0-4.8); Lymph % (Auto) 12.3 % (9.0-44.0); Mean Corpuscular HGB Conc 33.1 % (32.0-36.0); Mean Corpuscular Hemoglobin 28.9 pg (27.0-34.0); Mean Corpuscular Volume 87.3 fL (80.0-100.0); Mono # (Auto) 1.5 th/mm3 (0.0-0.9); Mono % (Auto) 10.5 % (0.0-8.0); Neut # (Auto) 10.9 th/mm3 (1.8-7.7); Neut % (Auto) 76.9 % (16.0-70.0); Platelet Count 229 th/mm3 (150-450); Red Blood Count 3.82 mil/mm3 (4.50-5.90); Red Cell Distribution Width 14.2 % (11.6-17.2); White Blood Count 14.1 th/mm3 (4.0-11.0)
[2018-06-13 07:38] LABS: Carbon Dioxide 25.3 meq/L (21.0-32.0); Potassium 3.8 meq/L (3.5-5.1)
[2018-06-13] MEDS: hydroCHLOROthiazide 25 MG Tablet PO SCH (09:03)
[2018-06-13] MEDS: Gabapentin 300 MG Capsule PO SCH ×3 (09:04→19:49)
[2018-06-13] MEDS: Senna/Docusate Sodium 8.6/50 MG Tablet PO SCH (09:04)
[2018-06-13] MEDS: Enoxaparin Inj 30 MG/0.3 ML Syringe SQ SCH (09:05)
--- NOTE | 2018-06-13 12:15 | P.PNNS ---
Subjective Interval history: Patient in bed, no complaints of pain, reports improved sensation in BLE <Alana Tavares - Last Filed: 06/13/18 12:07> Physical Exam Vital signs: Vital Signs 06/12/18 12:55 06/12/18 12:56 06/12/18 13:00 Temperature 97.0 F L Pulse Rate 90 90 82 Respiratory Rate 14 13 Blood Pressure 148/83 H Pulse Oximetry 90 L 94 L 93 L 06/12/18 13:06 06/12/18 13:15 06/12/18 13:30 Temperature Pulse Rate 89 72 75 Respiratory Rate 10 L 8 L 12 Blood Pressure 140/82 128/75 132/70 Pulse Oximetry 95 94 L 95 06/12/18 13:45 06/12/18 14:00 06/12/18 14:15 Temperature Pulse Rate 72 68 72 Respiratory Rate 8 L 9 L 11 L Blood Pressure 130/72 128/71 114/64 Pulse Oximetry 94 L 95 94 L 06/12/18 14:30 06/12/18 14:45 06/12/18 15:00 Temperature 97.8 F Pulse Rate 73 85 71 Respiratory Rate 13 12 14 Blood Pressure 111/62 112/62 109/61 Pulse Oximetry 94 L 95 96 06/12/18 15:15 06/12/18 15:30 06/12/18 15:45 Temperature Pulse Rate 70 70 71 Respiratory Rate 14 12 15 Blood Pressure 103/60 103/60 102/59 L Pulse Oximetry 93 L 94 L 96 06/12/18 16:00 06/12/18 16:15 06/12/18 16:30 Temperature Pulse Rate 71 72 73 Respiratory Rate 12 14 12 Blood Pressure 110/60 102/56 L 97/58 L Pulse Oximetry 93 L 92 L 91 L 06/12/18 16:45 06/12/18 17:00 06/12/18 17:02 Temperature Pulse Rate 73 76 78 Respiratory Rate 14 16 20 Blood Pressure 102/59 L Pulse Oximetry 94 L 95 96 06/12/18 17:15 06/12/18 18:00 06/12/18 20:10 Temperature 98.1 F Pulse Rate 72 72 87 Respiratory Rate 10 L 12 18 Blood Pressure 100/61 112/57 L Pulse Oximetry 93 L 95 94 L 06/12/18 23:15 06/13/18 04:05 06/13/18 08:40 Temperature 98.1 F 98.7 F 98.5 F Pulse Rate 80 77 82 Respiratory Rate 18 18 18 Blood Pressure 118/60 127/86 111/63 Pulse Oximetry 95 95 95 Intake & Output 06/12/18 06/13/18 06/13/18 18:59 06:59 18:59 Intake Total 3040 / 3040 1700 / 1700 Output Total 1000 / 1000 1120 / 1120 Balance 2040 / 2040 580 / 580 Weight 131.8 kg 136 kg Intake: IV 1200 / 1200 NS Inj 1,000 ML @ 100 mls/hr IV 1000 / 1000 .CONT .Q10H [facility] Rx#:[id number] Vancomycin Inj 1,000 MG In NS 200 / 200 Inj 250 ML @ 250 mls/hr IV.SIG Q12H [facility] Rx#:[id number] Oral 240 / 240 500 / 500 Anesthesia Amount 2800 / 2800 Output: Estimated Blood Loss 300 / 300 Urine Amount (Catheter) 650 / 650 1000 / 1000 Indwelling Urethral Catheter 650 / 650 1000 / 1000 Wound Drainage 50 / 50 120 / 120 # 1 Back 50 / 50 120 / 120 Other: Date of Last Bowel Movement 06/12/18 Weight On Admission 131.8 kg Narrative: Patient A&Ox3, JOHNS and follows equally Lumbar drain in place with serosanguineous output Increased sensation in BLE Appears mildly uncomfortable - Urinary Catheter Management Indwelling Urethral Catheter Cath placed during this visit: yes Reason for continuing: Hourly intake/output Insertion date: 06/12/18 Insertion time: 08:20 <Alana Tavares - Last Filed: 06/13/18 12:07> Vital signs: Vital Signs 06/13/18 20:30 06/14/18 00:30 06/14/18 04:30 Temperature 101.3 F H 99.2 F 100.8 F H Pulse Rate 97 H 101 H 101 H Respiratory Rate 20 20 20 Blood Pressure 126/67 114/57 L 117/68 Pulse Oximetry 96 95 95 06/14/18 07:30 06/14/18 11:50 06/14/18 12:19 Temperature 99.2 F 98.5 F Pulse Rate 90 85 Respiratory Rate 20 18 8 L Blood Pressure 121/65 139/80 Pulse Oximetry 93 L 93 L 06/14/18 15:41 Temperature 98.4 F Pulse Rate 80 Respiratory Rate 20 Blood Pressure 136/86 Pulse Oximetry 94 L Intake & Output 06/13/18 06/14/18 06/14/18 18:59 06:59 18:59 Intake Total 1000 / 1000 1000 / 1000 1000 / 1000 Output Total 1050 / 1050 180 / 180 2920 / 2920 Balance -50 / -50 820 / 820 -1920 / -1920 Weight 135 kg Intake: IV 1000 / 1000 1000 / 1000 1000 / 1000 NS Inj 1,000 ML @ 100 mls/hr IV 1000 / 1000 1000 / 1000 1000 / 1000 .CONT .Q10H [facility] Rx#:[id number] Output: Urine Amount (Catheter) 1050 / 1050 2800 / 2800 Indwelling Urethral Catheter 1050 / 1050 2800 / 2800 Wound Drainage 180 / 180 120 / 120 # 1 Back 180 / 180 120 / 120 Other: Date of Last Bowel Movement 06/12/18 06/12/18 06/12/18 - Urinary Catheter Management Indwelling Urethral Catheter Cath placed during this visit: no <Madan Schwartz - Last Filed: 06/14/18 17:09> Assessment and Plan - Plan 06/13/2018 POD#1 Patient underwent a multilevel lumbar laminectomy Lumbar drain was placed, to drain 80cc/ 8 hours Continue Bedrest through the weekend until cleared Continue in bed PT Able to get OOB to bathroom with Drain clamped will continue with current care will follow <Alana Tavares - Last Filed: 06/13/18 12:07> - Attending Attestation The exam, history, and the medical decision-making described in the above note were completed with the assistance of the mid-level provider. I reviewed and agree with the findings presented. I attest that I had a [id number] encounter with the patient on the same day, and personally performed and documented my assessment and findings in the medical record. <Madan Schwartz - Last Filed: 06/14/18 17:09>
[2018-06-13 17:04] LABS: Baso # (Auto) 0.1 th/mm3 (0.0-0.2); Baso % (Auto) 0.6 % (0.0-2.0); Eos % (Auto) 0.3 % (0.0-4.0); Hematocrit 34.1 % (39.0-51.0); Hemoglobin 11.3 gm/dL (13.0-17.0); Lymph # (Auto) 2.7 th/mm3 (1.0-4.8); Lymph % (Auto) 18.7 % (9.0-44.0); Mean Corpuscular HGB Conc 33.1 % (32.0-36.0); Mean Corpuscular Hemoglobin 29.2 pg (27.0-34.0); Mean Corpuscular Volume 88.2 fL (80.0-100.0); Mean Platelet Volume 8.1 fL (7.0-11.0); Mono # (Auto) 1.5 th/mm3 (0.0-0.9); Mono % (Auto) 10.5 % (0.0-8.0); Neut % (Auto) 69.9 % (16.0-70.0); Platelet Count 233 th/mm3 (150-450); Red Blood Count 3.86 mil/mm3 (4.50-5.90); Red Cell Distribution Width 14.2 % (11.6-17.2); White Blood Count 14.2 th/mm3 (4.0-11.0)
[2018-06-13 17:36] LABS: Calcium 7.4 mg/dL (8.5-10.1); Carbon Dioxide 28.7 meq/L (21.0-32.0); Potassium 3.5 meq/L (3.5-5.1)
[2018-06-13 17:46] LABS: Albumin 2.5 g/dL (3.4-5.0); Calcium-Albumin Corrected 8.6 mg/dL (8.5-10.1)
--- NOTE | 2018-06-13 18:52 | ECG ---
Date Performed: 06/13/2018 Time Performed: 17:28:29 PTAGE: 57 years EKG: Sinus rhythm NORMAL ECG PREVIOUS TRACING : 05/02/2018 06.04 Compared to previous tracing, heart rate has increased. DOCTOR: Yvon Villaseñor Interpretating Date/Time 06/13/2018 18:50:54
[2018-06-13] MEDS: Sod Chloride 0.9% Inj 1,000 ML IV.CONT SCH ×2 (19:30→19:52)
[2018-06-13] MEDS: HYDROmorphone PCA Inj 6 MG/30 ML PCA.VIAL PCA PRN (19:52)
[2018-06-14] MEDS: Senna/Docusate Sodium 8.6/50 MG Tablet PO SCH ×3 (01:07→23:03)
[2018-06-14] MEDS: Sod Chloride 0.9% Inj 1,000 ML IV.CONT SCH ×3 (05:29→17:22)
[2018-06-14 08:07] LABS: Baso # (Auto) 0.1 th/mm3 (0.0-0.2); Baso % (Auto) 0.3 % (0.0-2.0); Eos # (Auto) 0.1 th/mm3 (0.0-0.4); Eos % (Auto) 0.4 % (0.0-4.0); Hematocrit 34.1 % (39.0-51.0); Hemoglobin 11.5 gm/dL (13.0-17.0); Lymph # (Auto) 1.8 th/mm3 (1.0-4.8); Lymph % (Auto) 12.3 % (9.0-44.0); Mean Corpuscular HGB Conc 33.8 % (32.0-36.0); Mean Corpuscular Hemoglobin 29.6 pg (27.0-34.0); Mean Corpuscular Volume 87.6 fL (80.0-100.0); Mean Platelet Volume 8.3 fL (7.0-11.0); Mono # (Auto) 1.7 th/mm3 (0.0-0.9); Mono % (Auto) 11.6 % (0.0-8.0); Neut % (Auto) 75.4 % (16.0-70.0); Platelet Count 230 th/mm3 (150-450); Red Blood Count 3.89 mil/mm3 (4.50-5.90); Red Cell Distribution Width 14.1 % (11.6-17.2); White Blood Count 14.7 th/mm3 (4.0-11.0)
[2018-06-14 08:33] LABS: Calcium 7.6 mg/dL (8.5-10.1); Carbon Dioxide 28.1 meq/L (21.0-32.0)
[2018-06-14] MEDS: hydroCHLOROthiazide 25 MG Tablet PO SCH (08:46)
[2018-06-14] MEDS: Gabapentin 300 MG Capsule PO SCH ×3 (08:46→17:44)
[2018-06-14] MEDS: Enoxaparin Inj 30 MG/0.3 ML Syringe SQ SCH (08:46)
--- NOTE | 2018-06-14 10:36 | P.PNNS ---
Subjective Interval history: complains of burning sensation over incision site <Alana Tavares - Last Filed: 06/14/18 10:28> Physical Exam Vital signs: Vital Signs 06/13/18 12:05 06/13/18 16:20 06/13/18 20:30 Temperature 99.3 F 99.2 F 101.3 F H Pulse Rate 84 88 97 H Respiratory Rate 18 18 20 Blood Pressure 106/59 L 110/60 126/67 Pulse Oximetry 92 L 95 96 06/14/18 00:30 06/14/18 04:30 06/14/18 07:30 Temperature 99.2 F 100.8 F H 99.2 F Pulse Rate 101 H 101 H 90 Respiratory Rate 20 20 20 Blood Pressure 114/57 L 117/68 121/65 Pulse Oximetry 95 95 93 L Intake & Output 06/13/18 06/14/18 06/14/18 18:59 06:59 18:59 Intake Total 1000 / 1000 1000 / 1000 1000 / 1000 Output Total 1050 / 1050 180 / 180 120 / 120 Balance -50 / -50 820 / 820 880 / 880 Weight 135 kg Intake: IV 1000 / 1000 1000 / 1000 1000 / 1000 NS Inj 1,000 ML @ 100 mls/hr IV 1000 / 1000 1000 / 1000 1000 / 1000 .CONT .Q10H [facility] Rx#:[id number] Output: Urine Amount (Catheter) 1050 / 1050 Indwelling Urethral Catheter 1050 / 1050 Wound Drainage 180 / 180 120 / 120 # 1 Back 180 / 180 120 / 120 Other: Date of Last Bowel Movement 06/12/18 06/12/18 06/12/18 Narrative: Patient A&Ox3, JOHNS and follows equally Lumbar drain in place with blood tinged CSF Increased sensation in BLE Appears mildly uncomfortable - Urinary Catheter Management Indwelling Urethral Catheter Cath placed during this visit: yes Reason for continuing: Hourly intake/output Insertion date: 06/12/18 Insertion time: 08:20 <Alana Tavares - Last Filed: 06/14/18 10:28> Vital signs: Vital Signs 06/13/18 20:30 06/14/18 00:30 06/14/18 04:30 Temperature 101.3 F H 99.2 F 100.8 F H Pulse Rate 97 H 101 H 101 H Respiratory Rate 20 20 20 Blood Pressure 126/67 114/57 L 117/68 Pulse Oximetry 96 95 95 06/14/18 07:30 06/14/18 11:50 06/14/18 12:19 Temperature 99.2 F 98.5 F Pulse Rate 90 85 Respiratory Rate 20 18 8 L Blood Pressure 121/65 139/80 Pulse Oximetry 93 L 93 L 06/14/18 15:41 Temperature 98.4 F Pulse Rate 80 Respiratory Rate 20 Blood Pressure 136/86 Pulse Oximetry 94 L Intake & Output 06/13/18 06/14/18 06/14/18 18:59 06:59 18:59 Intake Total 1000 / 1000 1000 / 1000 1000 / 1000 Output Total 1050 / 1050 180 / 180 2920 / 2920 Balance -50 / -50 820 / 820 -1920 / -1920 Weight 135 kg Intake: IV 1000 / 1000 1000 / 1000 1000 / 1000 NS Inj 1,000 ML @ 100 mls/hr IV 1000 / 1000 1000 / 1000 1000 / 1000 .CONT .Q10H [facility] Rx#:[id number] Output: Urine Amount (Catheter) 1050 / 1050 2800 / 2800 Indwelling Urethral Catheter 1050 / 1050 2800 / 2800 Wound Drainage 180 / 180 120 / 120 # 1 Back 180 / 180 120 / 120 Other: Date of Last Bowel Movement 06/12/18 06/12/18 06/12/18 - Urinary Catheter Management Indwelling Urethral Catheter Cath placed during this visit: no <Madan Schwartz - Last Filed: 06/14/18 17:11> Assessment and Plan - Plan 06/13/2018 POD#1 Patient underwent a multilevel lumbar laminectomy Lumbar drain was placed, to drain 80cc/ 8 hours Continue Bedrest through the weekend until cleared Continue in bed PT Able to get OOB to bathroom with Drain clamped will continue with current care will follow 06/14/2018 POD #2 s/p L2/3, L3/4, L4/5, L5/S1 open laminectomy, Placement of lumbar drain L1/2 using fluoroscopic guidance and microscope, Repair of CSF leak L4/5 using microscope last night patient had multiple symptoms including chest pain, rib pain, blurry vision. EKG was negative. rib pain could be nerve irritation from lumbar drain. patient may also had anxiety symptoms, will start on low dose Ativan prn. continue present management continue bed rest and lumbar draining today, clear for bathroom privileges discontinue gould catheter will start mobilizing more tomorrow with drain clamped continue therapy will follow <Alana Tavares - Last Filed: 06/14/18 10:28> - Attending Attestation The exam, history, and the medical decision-making described in the above note were completed with the assistance of the mid-level provider. I reviewed and agree with the findings presented. I attest that I had a [id number] encounter with the patient on the same day, and personally performed and documented my assessment and findings in the medical record. <Madan Schwartz - Last Filed: 06/14/18 17:11>
[2018-06-14] MEDS: HYDROmorphone PCA Inj 6 MG/30 ML PCA.VIAL PCA PRN ×2 (11:45→19:17)
[2018-06-15] MEDS: Sod Chloride 0.9% Inj 1,000 ML IV.CONT SCH ×2 (03:24→15:53)
--- NOTE | 2018-06-15 06:48 | P.PNNS ---
Subjective Interval history: This morning nurse noted drainage around lumbar drainage catheter while clamped. Wound itself was clean/dry/intact, some red fluid noted along the drain exit site. Redressed and asked to increase drainage goal to 160cc/12 hour shift. Patient did complain of minor headache this AM. Physical Exam Vital signs: Vital Signs 06/14/18 07:30 06/14/18 11:50 06/14/18 12:19 Temperature 99.2 F 98.5 F Pulse Rate 90 85 Respiratory Rate 20 18 8 L Blood Pressure 121/65 139/80 Pulse Oximetry 93 L 93 L 06/14/18 15:41 06/14/18 17:18 06/14/18 19:50 Temperature 98.4 F Pulse Rate 80 Respiratory Rate 20 16 19 Blood Pressure 136/86 Pulse Oximetry 94 L 06/14/18 20:10 06/14/18 23:50 06/15/18 00:10 Temperature 99.4 F 98.1 F Pulse Rate 97 H 103 H Respiratory Rate 21 19 19 Blood Pressure 136/84 133/80 Pulse Oximetry 96 93 L 06/15/18 05:10 Temperature 99.6 F Pulse Rate 99 H Respiratory Rate 20 Blood Pressure 138/77 Pulse Oximetry 95 Intake & Output 06/14/18 06/14/18 06/15/18 06:59 18:59 06:59 Intake Total 1000 / 1000 2000 / 2000 1000 / 1000 Output Total 180 / 180 2920 / 2920 2800 / 2800 Balance 820 / 820 -920 / -920 -1800 / -1800 Weight 135 kg 136.1 kg Intake: IV 1000 / 1000 1999 / 2000 1000 / 1000 NS Inj 1,000 ML @ 100 mls/hr IV 1000 / 1000 2000 / 2000 1000 / 1000 .CONT .Q10H REPLACED BY [facility] Rx#:[id number] Output: Urine Amount (Catheter) 2800 / 2800 2800 / 2800 Indwelling Urethral Catheter 2800 / 2800 2800 / 2800 Wound Drainage 180 / 180 120 / 120 # 1 Back 180 / 180 120 / 120 Other: Date of Last Bowel Movement 06/12/18 06/12/18 - Urinary Catheter Management Indwelling Urethral Catheter Cath placed during this visit: yes Reason for continuing: Hourly intake/output Insertion date: 06/12/18 Insertion time: 08:20 Assessment and Plan - Plan 06/13/2018 POD#1 Patient underwent a multilevel lumbar laminectomy Lumbar drain was placed, to drain 80cc/ 8 hours Continue Bedrest through the weekend until cleared Continue in bed PT Able to get OOB to bathroom with Drain clamped will continue with current care will follow 06/14/2018 POD #2 s/p L2/3, L3/4, L4/5, L5/S1 open laminectomy, Placement of lumbar drain L1/2 using fluoroscopic guidance and microscope, Repair of CSF leak L4/5 using microscope last night patient had multiple symptoms including chest pain, rib pain, blurry vision. EKG was negative. rib pain could be nerve irritation from lumbar drain. patient may also had anxiety symptoms, will start on low dose Ativan prn. continue present management continue bed rest and lumbar draining today, clear for bathroom privileges discontinue gould catheter will start mobilizing more tomorrow with drain clamped continue therapy will follow 06/15/2018 POD #3 anxiety improved with Ativan redressed the lumbar drain and increased drainage goal to 160cc/12 hours -- if this persists, consider pulling and placing a stitch keep gould in until mobilized continue therapy
[2018-06-15 08:09] LABS: Baso % (Auto) 0.2 % (0.0-2.0); Eos # (Auto) 0.1 th/mm3 (0.0-0.4); Eos % (Auto) 0.7 % (0.0-4.0); Hematocrit 34.1 % (39.0-51.0); Hemoglobin 11.4 gm/dL (13.0-17.0); Lymph # (Auto) 1.5 th/mm3 (1.0-4.8); Lymph % (Auto) 10.8 % (9.0-44.0); Mean Corpuscular HGB Conc 33.5 % (32.0-36.0); Mean Corpuscular Hemoglobin 28.8 pg (27.0-34.0); Mean Corpuscular Volume 86.2 fL (80.0-100.0); Mean Platelet Volume 8.2 fL (7.0-11.0); Mono # (Auto) 1.4 th/mm3 (0.0-0.9); Mono % (Auto) 10.3 % (0.0-8.0); Neut # (Auto) 10.8 th/mm3 (1.8-7.7); Platelet Count 225 th/mm3 (150-450); Red Blood Count 3.96 mil/mm3 (4.50-5.90); White Blood Count 13.8 th/mm3 (4.0-11.0)
[2018-06-15] MEDS: Gabapentin 300 MG Capsule PO SCH ×3 (08:22→17:44)
[2018-06-15] MEDS: Senna/Docusate Sodium 8.6/50 MG Tablet PO SCH ×2 (08:22→22:49)
[2018-06-15] MEDS: Enoxaparin Inj 30 MG/0.3 ML Syringe SQ SCH (08:23)
[2018-06-15] MEDS: hydroCHLOROthiazide 25 MG Tablet PO SCH (08:23)
[2018-06-15 08:43] LABS: Anion Gap 9 meq/L (5-15); Blood Urea Nitrogen 9 mg/dL (7-18); Calcium 7.6 mg/dL (8.5-10.1); Carbon Dioxide 26.9 meq/L (21.0-32.0); Chloride 102 meq/L (98-107); Glomerular Filtration Rate Greater Than 89 mL/min (>89); Glucose,Random 114 mg/dL (74-106); Potassium 3.1 meq/L (3.5-5.1); Sodium 138 meq/L (136-145)
[2018-06-15] MEDS ORDERED: HYDROmorphone PF Inj 2 MG/ML Vial IV.PUSH PRN (11:08)
[2018-06-15] MEDS: HYDROmorphone PF Inj 2 MG/ML Vial IV.PUSH PRN ×2 (12:57→17:44)
[2018-06-16] MEDS: Sod Chloride 0.9% Inj 1,000 ML IV.CONT SCH ×2 (05:34→16:59)
[2018-06-16 07:11] LABS: Baso # (Auto) 0.1 th/mm3 (0.0-0.2); Baso % (Auto) 0.4 % (0.0-2.0); Eos # (Auto) 0.2 th/mm3 (0.0-0.4); Eos % (Auto) 1.3 % (0.0-4.0); Hematocrit 34.7 % (39.0-51.0); Hemoglobin 11.4 gm/dL (13.0-17.0); Lymph # (Auto) 1.6 th/mm3 (1.0-4.8); Lymph % (Auto) 13.3 % (9.0-44.0); Mean Corpuscular Hemoglobin 28.8 pg (27.0-34.0); Mean Corpuscular Volume 87.4 fL (80.0-100.0); Mean Platelet Volume 8.5 fL (7.0-11.0); Mono # (Auto) 1.1 th/mm3 (0.0-0.9); Mono % (Auto) 9.3 % (0.0-8.0); Neut # (Auto) 9.1 th/mm3 (1.8-7.7); Neut % (Auto) 75.7 % (16.0-70.0); Platelet Count 258 th/mm3 (150-450); Red Blood Count 3.96 mil/mm3 (4.50-5.90); Red Cell Distribution Width 14.1 % (11.6-17.2)
[2018-06-16 07:37] LABS: Anion Gap 8 meq/L (5-15); Blood Urea Nitrogen 12 mg/dL (7-18); Calcium 8.3 mg/dL (8.5-10.1); Carbon Dioxide 27.8 meq/L (21.0-32.0); Chloride 101 meq/L (98-107); Glomerular Filtration Rate Greater Than 89 mL/min (>89); Glucose,Random 88 mg/dL (74-106); Potassium 3.4 meq/L (3.5-5.1); Sodium 137 meq/L (136-145)
[2018-06-16] MEDS: hydroCHLOROthiazide 25 MG Tablet PO SCH (08:26)
[2018-06-16] MEDS: Enoxaparin Inj 30 MG/0.3 ML Syringe SQ SCH (08:26)
[2018-06-16] MEDS: Gabapentin 300 MG Capsule PO SCH ×3 (08:26→17:00)
[2018-06-16] MEDS: Senna/Docusate Sodium 8.6/50 MG Tablet PO SCH ×2 (08:26→20:37)
[2018-06-16] MEDS: HYDROmorphone PCA Inj 6 MG/30 ML PCA.VIAL PCA PRN (10:06)
--- NOTE | 2018-06-16 12:09 | P.PNNS ---
Subjective Interval history: June 16, 2018 Patient has remained stable overnight. His low back pain is decreasing. He feels that his legs are tight. He denies any headache. Physical Exam Vital signs: Vital Signs 06/15/18 12:57 06/15/18 16:51 06/15/18 18:15 Temperature 97.5 F L 98.1 F Pulse Rate 88 69 Respiratory Rate 16 16 22 Blood Pressure 129/72 158/81 H Pulse Oximetry 95 96 06/15/18 21:16 06/16/18 01:30 06/16/18 05:41 Temperature 99.2 F 98.8 F 97.7 F Pulse Rate 99 H 92 H 91 H Respiratory Rate 18 18 18 Blood Pressure 158/78 H 109/57 L 118/66 Pulse Oximetry 96 99 97 06/16/18 07:35 06/16/18 11:04 Temperature 97.5 F L Pulse Rate 94 H Respiratory Rate 16 14 Blood Pressure 128/65 Pulse Oximetry 92 L Intake & Output 06/15/18 06/16/18 06/16/18 18:59 06:59 18:59 Intake Total 1000 / 1000 1300 / 1300 Output Total 170 / 170 785 / 785 Balance 830 / 830 515 / 515 Weight 138.3 kg Intake: IV 1000 / 1000 1000 / 1000 NS Inj 1,000 ML @ 100 mls/hr IV 1000 / 1000 1000 / 1000 .CONT .Q10H [facility] Rx#:[id number] Oral 300 / 300 Output: Urine 625 / 625 Wound Drainage 170 / 170 160 / 160 # 1 Back 170 / 170 160 / 160 Other: Date of Last Bowel Movement 06/16/18 # Bowel Movements 1 - Routine Neurological Exam June 16, 2018 The patient is walking as I enter the room using a walker. He is afebrile and his vital signs are stable. On neurological examination, mental status testing finds him to be awake and alert. He is oriented by 3. Cognitive functions grossly intact. His speech is fluent. Cranial nerve testing 2 through 12 is grossly intact. There were no focal motor nor sensory deficits. Seems to be ambulatory and continent. His lumbar dressing is in place appears without drainage. Lumbar drain is in place as well and functional. - Urinary Catheter Management Indwelling Urethral Catheter Cath placed during this visit: yes Reason for continuing: Hourly intake/output Insertion date: 06/12/18 Insertion time: 08:20 Assessment and Plan - Plan 06/13/2018 POD#1 Patient underwent a multilevel lumbar laminectomy Lumbar drain was placed, to drain 80cc/ 8 hours Continue Bedrest through the weekend until cleared Continue in bed PT Able to get OOB to bathroom with Drain clamped will continue with current care will follow 06/14/2018 POD #2 s/p L2/3, L3/4, L4/5, L5/S1 open laminectomy, Placement of lumbar drain L1/2 using fluoroscopic guidance and microscope, Repair of CSF leak L4/5 using microscope last night patient had multiple symptoms including chest pain, rib pain, blurry vision. EKG was negative. rib pain could be nerve irritation from lumbar drain. patient may also had anxiety symptoms, will start on low dose Ativan prn. continue present management continue bed rest and lumbar draining today, clear for bathroom privileges discontinue gould catheter will start mobilizing more tomorrow with drain clamped continue therapy will follow 06/15/2018 POD #3 anxiety improved with Ativan redressed the lumbar drain and increased drainage goal to 160cc/12 hours -- if this persists, consider pulling and placing a stitch keep gould in until mobilized continue therapy June 16, 2018 Postoperative day #4 The patient appears to be stable postoperatively. Most probably lumbar drain will be discontinued tomorrow. He needs to continue with physical therapy and mobilization. We will follow
[2018-06-17] MEDS: Enoxaparin Inj 30 MG/0.3 ML Syringe SQ SCH (09:09)
[2018-06-17] MEDS: Gabapentin 300 MG Capsule PO SCH ×3 (09:09→17:12)
[2018-06-17] MEDS: Senna/Docusate Sodium 8.6/50 MG Tablet PO SCH ×2 (09:09→20:52)
[2018-06-17] MEDS: HYDROmorphone PCA Inj 6 MG/30 ML PCA.VIAL PCA PRN (13:14)
--- NOTE | 2018-06-17 13:31 | P.PNNS ---
Subjective Interval history: c/o of headaches <Alana Tavares - Last Filed: 06/17/18 13:29> Physical Exam Vital signs: Vital Signs 06/16/18 16:00 06/16/18 20:46 06/17/18 01:17 Temperature 98.1 F 99.5 F 98.9 F Pulse Rate 91 H 101 H 103 H Respiratory Rate 16 20 18 Blood Pressure 120/65 136/67 136/75 Pulse Oximetry 95 99 96 06/17/18 04:30 06/17/18 07:42 06/17/18 11:47 Temperature 98.5 F 98.2 F 98.2 F Pulse Rate 96 H 93 H 93 H Respiratory Rate 18 20 16 Blood Pressure 134/72 128/69 125/77 Pulse Oximetry 97 98 95 Intake & Output 06/16/18 06/17/18 06/17/18 18:59 06:59 18:59 Intake Total 1000 / 1000 1000 / 1000 Output Total 30 / 30 Balance 1000 / 1000 970 / 970 Weight 130.9 kg Intake: IV 1000 / 1000 1000 / 1000 NS Inj 1,000 ML @ 100 mls/hr IV 1000 / 1000 1000 / 1000 .CONT .Q10H [facility] Rx#:[id number] Output: Wound Drainage # 1 Back Other: # Voids 4 Date of Last Bowel Movement 06/16/18 06/17/18 # Bowel Movements 4 1 Narrative: Patient A&Ox3, JOHNS and follows equally appears mildly uncomfortable and c/o headaches Lumbar drain in place with blood tinged CSF wound appears clean and dry, no CSF leak seen Increased sensation in BLE - Urinary Catheter Management Indwelling Urethral Catheter Cath placed during this visit: yes Reason for continuing: Hourly intake/output Insertion date: 06/12/18 Insertion time: 08:20 <Alana Tavares - Last Filed: 06/17/18 13:29> Vital signs: Vital Signs 06/16/18 20:46 06/17/18 01:17 06/17/18 04:30 Temperature 99.5 F 98.9 F 98.5 F Pulse Rate 101 H 103 H 96 H Respiratory Rate 20 18 18 Blood Pressure 136/67 136/75 134/72 Pulse Oximetry 99 96 97 06/17/18 07:42 06/17/18 11:47 02/25/19 15:34 Temperature 98.2 F 98.2 F 98.4 F Pulse Rate 93 H 93 H 89 Respiratory Rate 20 16 18 Blood Pressure 128/69 125/77 107/55 L Pulse Oximetry 98 95 Intake & Output 06/17/18 06/17/18 06/18/18 06:59 18:59 06:59 Intake Total 1000 / 1000 Output Total Balance 970 / 970 Weight 130.9 kg Intake: IV 1000 / 1000 NS Inj 1,000 ML @ 100 mls/hr IV 1000 / 1000 .CONT .Q10H [facility] Rx#:[id number] Output: Wound Drainage # 1 Back Other: # Voids 4 Date of Last Bowel Movement 06/17/18 06/17/18 # Bowel Movements 4 1 - Urinary Catheter Management Indwelling Urethral Catheter Cath placed during this visit: no <Madan Schwartz - Last Filed: 06/17/18 19:11> Assessment and Plan - Plan 06/13/2018 POD#1 Patient underwent a multilevel lumbar laminectomy Lumbar drain was placed, to drain 80cc/ 8 hours Continue Bedrest through the weekend until cleared Continue in bed PT Able to get OOB to bathroom with Drain clamped will continue with current care will follow 06/14/2018 POD #2 s/p L2/3, L3/4, L4/5, L5/S1 open laminectomy, Placement of lumbar drain L1/2 using fluoroscopic guidance and microscope, Repair of CSF leak L4/5 using microscope last night patient had multiple symptoms including chest pain, rib pain, blurry vision. EKG was negative. rib pain could be nerve irritation from lumbar drain. patient may also had anxiety symptoms, will start on low dose Ativan prn. continue present management continue bed rest and lumbar draining today, clear for bathroom privileges discontinue gould catheter will start mobilizing more tomorrow with drain clamped continue therapy will follow 06/15/2018 POD #3 anxiety improved with Ativan redressed the lumbar drain and increased drainage goal to 160cc/12 hours -- if this persists, consider pulling and placing a stitch keep gould in until mobilized continue therapy June 16, 2018 Postoperative day #4 The patient appears to be stable postoperatively. Most probably lumbar drain will be discontinued tomorrow. He needs to continue with physical therapy and mobilization. We will follow June 17, 2018 POD #5 suspected spinal RAHMAN's from lumbar drain, will discontinue lumbar drain today continue present care and supportive care will follow <Alana Tavares - Last Filed: 06/17/18 13:29> - Attending Attestation The exam, history, and the medical decision-making described in the above note were completed with the assistance of the mid-level provider. I reviewed and agree with the findings presented. I attest that I had a [id number] encounter with the patient on the same day, and personally performed and documented my assessment and findings in the medical record. <Madan Schwartz - Last Filed: 06/17/18 19:11>
[2018-06-17] MEDS: hydroCHLOROthiazide 25 MG Tablet PO SCH (14:53)
[2018-06-17] MEDS ORDERED: HYDROmorphone PF Inj 0.5 MG/0.5 ML Syringe IV.PUSH PRN ×2 (23:04→23:05)
[2018-06-17] MEDS ORDERED: Sod Chloride 0.9% Inj 1,000 ML IV.SIG SCH (23:27)
[2018-06-18] MEDS: Gabapentin 300 MG Capsule PO SCH ×3 (08:31→18:16)
[2018-06-18] MEDS: Enoxaparin Inj 30 MG/0.3 ML Syringe SQ SCH (08:31)
[2018-06-18] MEDS: Senna/Docusate Sodium 8.6/50 MG Tablet PO SCH ×2 (08:31→23:21)
--- NOTE | 2018-06-18 11:19 | P.PNNS ---
Subjective Interval history: patient in bed, complains of dizziness when out of bed. pain reported throughout night <Alana Tavares - Last Filed: 06/18/18 11:15> Physical Exam Vital signs: Vital Signs 06/17/18 11:47 06/17/18 15:34 06/17/18 20:00 Temperature 98.2 F 98.4 F Pulse Rate 93 H 89 Respiratory Rate 16 18 20 Blood Pressure 125/77 107/55 L Pulse Oximetry 95 06/17/18 20:45 06/18/18 00:35 06/18/18 04:20 Temperature 98.4 F 98.4 F 98.0 F Pulse Rate 99 H 90 99 H Respiratory Rate 18 18 Blood Pressure 136/88 127/88 145/64 H Pulse Oximetry 99 97 96 06/18/18 07:41 06/18/18 08:03 Temperature 99.1 F Pulse Rate 96 H Respiratory Rate 18 16 Blood Pressure 118/59 L Pulse Oximetry 93 L Intake & Output 06/17/18 06/18/18 06/18/18 18:59 06:59 18:59 Intake Total 1000 / 1000 1000 / 1000 Output Total 500 / 500 Balance 500 / 500 1000 / 1000 Weight 131.8 kg Intake: IV 1000 / 1000 NS Inj 1,000 ML @ 1000 mls/hr 1000 / 1000 IV.SIG BOLUS [facility] Rx#:[id number] Oral 1000 / 1000 Output: Urine 500 / 500 Other: # Voids 4 Date of Last Bowel Movement 06/17/18 06/17/18 06/18/18 # Bowel Movements 1 1 Narrative: Patient A&Ox3, JOHNS and follows equally appears mildly uncomfortable and c/o headaches wound appears clean and dry, no CSF leak seen Increased sensation in BLE - Urinary Catheter Management Indwelling Urethral Catheter Cath placed during this visit: yes Reason for continuing: Hourly intake/output Insertion date: 06/12/18 Insertion time: 08:20 <Alana Tavares - Last Filed: 06/18/18 11:15> Vital signs: Vital Signs 06/17/18 15:34 06/17/18 20:00 06/17/18 20:45 Temperature 98.4 F 98.4 F Pulse Rate 89 99 H Respiratory Rate 18 20 Blood Pressure 107/55 L 136/88 Pulse Oximetry 99 06/18/18 00:35 06/18/18 04:20 06/18/18 07:41 Temperature 98.4 F 98.0 F 99.1 F Pulse Rate 90 99 H 96 H Respiratory Rate 18 18 18 Blood Pressure 127/88 145/64 H 118/59 L Pulse Oximetry 97 96 93 L 06/18/18 08:03 06/18/18 11:10 Temperature 99.1 F Pulse Rate 96 H Respiratory Rate 16 20 Blood Pressure 130/68 Pulse Oximetry 93 L Intake & Output 06/17/18 06/18/18 06/18/18 18:59 06:59 18:59 Intake Total 1000 / 1000 1000 / 1000 Output Total 500 / 500 Balance 500 / 500 1000 / 1000 Weight 131.8 kg Intake: IV 1000 / 1000 NS Inj 1,000 ML @ 1000 mls/hr 1000 / 1000 IV.SIG BOLUS TANA Rx#:[id number] Oral 1000 / 1000 Output: Urine 500 / 500 Other: # Voids 4 Date of Last Bowel Movement 06/17/18 06/17/18 06/18/18 # Bowel Movements 1 1 - Urinary Catheter Management Indwelling Urethral Catheter Cath placed during this visit: no <Madan Schwartz - Last Filed: 06/18/18 12:58> Assessment and Plan - Plan 06/13/2018 POD#1 Patient underwent a multilevel lumbar laminectomy Lumbar drain was placed, to drain 80cc/ 8 hours Continue Bedrest through the weekend until cleared Continue in bed PT Able to get OOB to bathroom with Drain clamped will continue with current care will follow 06/14/2018 POD #2 s/p L2/3, L3/4, L4/5, L5/S1 open laminectomy, Placement of lumbar drain L1/2 using fluoroscopic guidance and microscope, Repair of CSF leak L4/5 using microscope last night patient had multiple symptoms including chest pain, rib pain, blurry vision. EKG was negative. rib pain could be nerve irritation from lumbar drain. patient may also had anxiety symptoms, will start on low dose Ativan prn. continue present management continue bed rest and lumbar draining today, clear for bathroom privileges discontinue gould catheter will start mobilizing more tomorrow with drain clamped continue therapy will follow 06/15/2018 POD #3 anxiety improved with Ativan redressed the lumbar drain and increased drainage goal to 160cc/12 hours -- if this persists, consider pulling and placing a stitch keep gould in until mobilized continue therapy June 16, 2018 Postoperative day #4 The patient appears to be stable postoperatively. Most probably lumbar drain will be discontinued tomorrow. He needs to continue with physical therapy and mobilization. We will follow June 17, 2018 POD #5 suspected spinal RAHMAN's from lumbar drain, will discontinue lumbar drain today continue present care and supportive care will follow June 18, 2018 POD #6 lumbar dressing dry and intact no CSF leak noted MRI of lumbar ordered NS with 20meq K ordered as bolus for headaches continue present management will follow <Alana Tavares - Last Filed: 06/18/18 11:15> - Attending Attestation The exam, history, and the medical decision-making described in the above note were completed with the assistance of the mid-level provider. I reviewed and agree with the findings presented. I attest that I had a [id number] encounter with the patient on the same day, and personally performed and documented my assessment and findings in the medical record. <Madan Schwartz - Last Filed: 06/18/18 12:58>
[2018-06-18] MEDS ORDERED: Gadobutrol PF 10 MMOL/10 ML Vial (for RAD) IV.SIG ONE (14:13)
--- NOTE | 2018-06-18 14:59 | MR ---
EXAM DATE: 06/18/2018 2:18 PM EST AGE/SEX: 57 years / Male INDICATIONS: . Lower extremity pain post op lumbar surgery. CLINICAL DATA: This is the patient's initial encounter. Patient reports that signs and symptoms have been present for 1 day and indicates a pain score of 5/10. MEDICAL/SURGICAL HISTORY: None. Fusion, cervical. Fusion, lumbar. [place] [facility] [place]. . TECHNIQUE: Multiplanar, multisequence MRI examination of the lumbar spine was performed without and with 13 ml Gadavist (gadobutrol) contrast as a single exam dose. FINDINGS: Patient is status post L2-L5 laminectomies. There is a prominent posterior soft tissue edema with flu id extending to the laminectomy beds at all levels. There is redemonstration of multilevel central ca nal stenosis most notably at L2-3, L3-4 and L4-5. This appears severe and progressed at all 3 levels with central canal measuring approximately 4 to 5 mm at L3-4 level and 5 to 6 mm at L2-3 level. There are no epidural collections. There is no significant abnormal enhancement. Cord demonstrates normal signal. No significant prevertebral soft tissue abnormality. Abdominal aorta appears nonaneurysmal. P artially imaged cyst in the right kidney. Remainder of exam is unchanged. CONCLUSION: 1. Status post L2-L5 laminectomies with prominent posterior soft tissue edema and fluid extending to the laminectomy beds at all levels. 2. Progressive severe central canal stenosis most notably at L3-5 and L2-3, as above. 3. No focal drainable fluid collections or epidural signal abnormality. Electronically signed by: Edis Stevens MD Board Certified Radiologist 06/18/2018 2:58 PM EST
[2018-06-18] MEDS: hydroCHLOROthiazide 25 MG Tablet PO SCH (18:15)
[2018-06-19] MEDS: hydroCHLOROthiazide 25 MG Tablet PO SCH (09:32)
[2018-06-19] MEDS: Gabapentin 300 MG Capsule PO SCH ×3 (09:32→18:07)
[2018-06-19] MEDS: Enoxaparin Inj 30 MG/0.3 ML Syringe SQ SCH (09:32)
[2018-06-19] MEDS: Senna/Docusate Sodium 8.6/50 MG Tablet PO SCH ×2 (09:33→22:56)
--- NOTE | 2018-06-19 12:15 | P.PNNS ---
Subjective Interval history: patient lying in bed, no new neuro changes, reports that pain is more manageable <Alana Tavares - Last Filed: 06/19/18 12:12> Physical Exam Vital signs: Vital Signs 06/18/18 20:40 06/19/18 00:17 06/19/18 04:35 Temperature 98.5 F 98.1 F 98.4 F Pulse Rate 89 75 80 Respiratory Rate 20 20 18 Blood Pressure 139/76 140/82 132/77 Pulse Oximetry 97 99 97 06/19/18 07:40 06/19/18 11:25 Temperature 97.4 F L 99.0 F Pulse Rate 79 89 Respiratory Rate 20 20 Blood Pressure 132/75 119/69 Pulse Oximetry 97 95 Intake & Output 06/18/18 06/19/18 06/19/18 18:59 06:59 18:59 Intake Total 1800 / 1800 1000 / 1000 Balance 1800 / 1800 1000 / 1000 Weight 131.9 kg Intake: IV 800 / 800 1000 / 1000 NS + KCl 20 mEq Inj 1,000 ML @ 800 / 800 1000 / 1000 150 mls/hr IV.CONT .Q6H40M [facility] Rx#:[id number] Oral 1000 / 1000 Other: # Voids 4 2 1 Date of Last Bowel Movement 06/18/18 06/18/18 # Bowel Movements 1 Narrative: Patient A&Ox3 JOHNS and follows equally wound appears clean and dry, no CSF leak seen Positive sensation to light touch to all 4 extremities bowel and bladder intact - Urinary Catheter Management Indwelling Urethral Catheter Cath placed during this visit: yes Reason for continuing: Hourly intake/output Insertion date: 06/12/18 Insertion time: 08:20 <Alana Tavares - Last Filed: 06/19/18 12:12> Vital signs: Vital Signs 06/18/18 20:40 06/19/18 00:17 06/19/18 04:35 Temperature 98.5 F 98.1 F 98.4 F Pulse Rate 89 75 80 Respiratory Rate 20 20 18 Blood Pressure 139/76 140/82 132/77 Pulse Oximetry 97 99 97 06/19/18 07:40 06/19/18 11:25 06/19/18 15:53 Temperature 97.4 F L 99.0 F 98.6 F Pulse Rate 79 89 82 Respiratory Rate 20 20 20 Blood Pressure 132/75 119/69 147/66 H Pulse Oximetry 97 95 98 Intake & Output 06/18/18 06/19/18 06/19/18 18:59 06:59 18:59 Intake Total 1800 / 1800 1000 / 1000 Balance 1800 / 1800 1000 / 1000 Weight 131.9 kg Intake: IV 800 / 800 1000 / 1000 NS + KCl 20 mEq Inj 1,000 ML @ 800 / 800 1000 / 1000 150 mls/hr IV.CONT .Q6H40M [facility] Rx#:[id number] Oral 1000 / 1000 Other: # Voids 4 2 1 Date of Last Bowel Movement 06/18/18 06/18/18 # Bowel Movements 1 - Urinary Catheter Management Indwelling Urethral Catheter Cath placed during this visit: no <Madan Schwartz - Last Filed: 06/19/18 16:33> Assessment and Plan - Plan 06/13/2018 POD#1 Patient underwent a multilevel lumbar laminectomy Lumbar drain was placed, to drain 80cc/ 8 hours Continue Bedrest through the weekend until cleared Continue in bed PT Able to get OOB to bathroom with Drain clamped will continue with current care will follow 06/14/2018 POD #2 s/p L2/3, L3/4, L4/5, L5/S1 open laminectomy, Placement of lumbar drain L1/2 using fluoroscopic guidance and microscope, Repair of CSF leak L4/5 using microscope last night patient had multiple symptoms including chest pain, rib pain, blurry vision. EKG was negative. rib pain could be nerve irritation from lumbar drain. patient may also had anxiety symptoms, will start on low dose Ativan prn. continue present management continue bed rest and lumbar draining today, clear for bathroom privileges discontinue gould catheter will start mobilizing more tomorrow with drain clamped continue therapy will follow 06/15/2018 POD #3 anxiety improved with Ativan redressed the lumbar drain and increased drainage goal to 160cc/12 hours -- if this persists, consider pulling and placing a stitch keep gould in until mobilized continue therapy June 16, 2018 Postoperative day #4 The patient appears to be stable postoperatively. Most probably lumbar drain will be discontinued tomorrow. He needs to continue with physical therapy and mobilization. We will follow June 17, 2018 POD #5 suspected spinal RAHMAN's from lumbar drain, will discontinue lumbar drain today continue present care and supportive care will follow June 18, 2018 POD #6 lumbar dressing dry and intact no CSF leak noted MRI of lumbar ordered NS with 20meq K ordered as bolus for headaches continue present management will follow June 19, 2018 POD #7 patient neurologically intact no CSF leak noted MRI of Lumbar spine reviewed by neurosurgical team continue present management will follow <Alana Tavares - Last Filed: 06/19/18 12:12> - Attending Attestation The exam, history, and the medical decision-making described in the above note were completed with the assistance of the mid-level provider. I reviewed and agree with the findings presented. I attest that I had a [id number] encounter with the patient on the same day, and personally performed and documented my assessment and findings in the medical record. <Madan Schwartz - Last Filed: 06/19/18 16:33>
--- NOTE | 2018-06-20 11:24 | P.DS ---
<Madan Schwartz - Last Filed: 06/20/18 15:48> Date of admission: 06/12/18 12:34 Primary care physician: Lazaor Lowry DS: Summary - Time Spent with Patient Total time spent providing and/or coordinating discharge services: Exam Vital signs: Vital Signs 06/19/18 15:53 06/19/18 20:25 06/20/18 00:30 Temperature 98.6 F 98.1 F 97.9 F Pulse Rate 82 86 80 Respiratory Rate 20 20 20 Blood Pressure 147/66 H 123/75 127/70 Pulse Oximetry 98 98 96 06/20/18 04:30 06/20/18 08:00 06/20/18 12:00 Temperature 98.3 F 97.3 F L 97.9 F Pulse Rate 85 70 84 Respiratory Rate 20 18 16 Blood Pressure 146/67 H 127/76 130/83 Pulse Oximetry 95 98 100 Intake & Output 06/19/18 06/20/18 06/20/18 18:59 06:59 18:59 Intake Total 400 / 400 Balance 400 / 400 Weight 128 kg Intake: IV 400 / 400 NS + KCl 20 mEq Inj 1,000 ML @ 400 / 400 150 mls/hr IV.CONT .Q6H40M [facility] Rx#:[id number] Other: # Voids 1 Date of Last Bowel Movement 06/18/18 06/18/18 Results - Impressions ITS Impressions Lumbar Spine X-Ray 06/12/18 00:00 CONCLUSION: Probe as above Lumbar Spine MRI 06/18/18 09:30 CONCLUSION: 1. Status post L2-L5 laminectomies with prominent posterior soft tissue edema and fluid extending to the laminectomy beds at all levels. 2. Progressive severe central canal stenosis most notably at L3-5 and L2-3, as above. 3. No focal drainable fluid collections or epidural signal abnormality. <Alana Tavares - Last Filed: 06/24/18 15:50> Date of admission: 06/12/18 12:34 Primary care physician: Lazaro Lowry Brief History from admission: This is a 57year old man who had prior lumbar surgery at L4/5 and prior cervical surgery. Recently, he has had progressive back pain and underwent posterior cervical decompression and fusion due to signs of myelopathy and upper arm weakness. This improved. His back pain persisted and he has multilevel lumbar stenosis. Decompression is indicated. DS: Summary Hospital Course: Mr. Yoo underwent L2/3, L3/4, L4/5, L5/S1 open laminectomy with Placement of lumbar drain L1/2 using fluoroscopic guidance and microscope, Repair of CSF leak L4/5 using microscope for Lumbar stenosis with Dr. Schwartz on 06/12/18. Patient developed dural leak intraoperative which was repaired and lumbar drain placed. 06/13/2018 POD#1 Patient underwent a multilevel lumbar laminectomy Lumbar drain was placed, to drain 80cc/ 8 hours Continue Bedrest through the weekend until cleared Continue in bed PT Able to get OOB to bathroom with Drain clamped will continue with current care will follow 06/14/2018 POD #2 s/p L2/3, L3/4, L4/5, L5/S1 open laminectomy, Placement of lumbar drain L1/2 using fluoroscopic guidance and microscope, Repair of CSF leak L4/5 using microscope last night patient had multiple symptoms including chest pain, rib pain, blurry vision. EKG was negative. rib pain could be nerve irritation from lumbar drain. patient may also had anxiety symptoms, will start on low dose Ativan prn. continue present management continue bed rest and lumbar draining today, clear for bathroom privileges discontinue gould catheter will start mobilizing more tomorrow with drain clamped continue therapy will follow 06/15/2018 POD #3 anxiety improved with Ativan redressed the lumbar drain and increased drainage goal to 160cc/12 hours -- if this persists, consider pulling and placing a stitch keep gould in until mobilized continue therapy June 16, 2018 Postoperative day #4 The patient appears to be stable postoperatively. Most probably lumbar drain will be discontinued tomorrow. He needs to continue with physical therapy and mobilization. We will follow June 17, 2018 POD #5 suspected spinal RAHMAN's from lumbar drain, will discontinue lumbar drain today continue present care and supportive care will follow June 18, 2018 POD #6 lumbar dressing dry and intact no CSF leak noted MRI of lumbar ordered NS with 20meq K ordered as bolus for headaches continue present management will follow June 19, 2018 POD #7 patient neurologically intact no CSF leak noted MRI of Lumbar spine reviewed by neurosurgical team continue present management will follow June 20, 2018 patient was discharged home in stable conditions. - Time Spent with Patient Total time spent providing and/or coordinating discharge services: Less than 30 minutes - Quality: VTE Deep Vein Thrombosis/Pulmonary Embolism Present on Admission: No Exam Vital signs: Vital Signs 06/19/18 11:25 06/19/18 15:53 06/19/18 20:25 Temperature 99.0 F 98.6 F 98.1 F Pulse Rate 89 82 86 Respiratory Rate 20 20 20 Blood Pressure 119/69 147/66 H 123/75 Pulse Oximetry 95 98 98 06/20/18 00:30 06/20/18 04:30 06/20/18 08:00 Temperature 97.9 F 98.3 F 97.3 F L Pulse Rate 80 85 70 Respiratory Rate 20 20 18 Blood Pressure 127/70 146/67 H 127/76 Pulse Oximetry 96 95 98 Intake & Output 06/19/18 06/20/18 06/20/18 18:59 06:59 18:59 Intake Total 400 / 400 Balance 400 / 400 Weight 128 kg Intake: IV 400 / 400 NS + KCl 20 mEq Inj 1,000 ML @ 400 / 400 150 mls/hr IV.CONT .Q6H40M [facility] Rx#:[id number] Other: # Voids 1 Date of Last Bowel Movement 06/18/18 Results Procedures completed during hospitalization: L2/3, L3/4, L4/5, L5/S1 open laminectomy with Placement of lumbar drain L1/2 using fluoroscopic guidance and microscope, Repair of CSF leak L4/5 using microscope - Impressions ITS Impressions Lumbar Spine X-Ray 06/12/18 00:00 CONCLUSION: Probe as above Lumbar Spine MRI 06/18/18 09:30 CONCLUSION: 1. Status post L2-L5 laminectomies with prominent posterior soft tissue edema and fluid extending to the laminectomy beds at all levels. 2. Progressive severe central canal stenosis most notably at L3-5 and L2-3, as above. 3. No focal drainable fluid collections or epidural signal abnormality. Discharge Plan - Discharge Order Discharge Orders: Discharge Order (Routine); Ordered 06/20/18 Ordered By: Alana Tavares - Physicians Team Primary Care Provider: Lazaro Lowry Attending Provider: Madan Schwartz - Rxs /Orders / Referrals /Forms Prescriptions: Continue hydrochlorothiazide 25 mg Tablet 25 mg PO DAILY Discontinued cephalexin 250 mg Tablet 250 mg PO QID Ambulatory Orders / Order Sets / DME: Adjustable Commode 3-in-1 (1 each) (Routine) Location: Determined by Patient Ordered By: Alana Tavares Walker With Front Wheels (1 each) (Routine) Location: Determined by Patient Ordered By: Alana Tavares Referrals: NIKOLAS HOOKER [Other] - 06/26/18 1:00 pm - Discharge Instructions Patient Printed Instructions: Laminectomy (DC) Additional Instructions: [facility] [phone] will deliver 3:1 to your home. - Post Discharge Care Plan Care Plan Goals: Your Health Problems: Goals to Promote Your Health: * To prevent worsening of your condition * To maintain your health at the optimal level Directions to Meet Your Goals: * Take your medications as prescribed * Follow your dietary instruction * Follow activity as directed * Keep your appointments as scheduled * Take your immunizations and boosters as scheduled * If your symptoms worsen call your PCP * If no PCP go to Urgent Care or Emergency Room Smoking is dangerous to your health. Avoid second hand smoke. You may reach the 24-hour crisis hotline for domestic abuse at .
--- NOTE | 2018-06-20 11:27 | P.DCO ---
- Physical Therapy Order: Evaluate and treat, Improve ambulation, Strength and gait training Instructions: s/p lumbar surgery - Home Health Nursing Order: Medical education, Signs/symptoms of disease process, Medication education-adverse effect, Wound care and dressing changes, Nursing assessment with vital signs - Case Management Consult Case Management Consult-Home Health: Yes - Certification I have seen patient Carlos Yoo on 06/20/18. My clinical findings support the need for the requested home health care services because: Limited mobility due to disease progression, Deconditioned with increased weakness, High risk of falls I certify that my clinical findings support that this patient is homebound because: Post-op weakness, Unsteady gait/balance
[2018-06-20] MEDS: Gabapentin 300 MG Capsule PO SCH ×2 (11:53→15:14)
[2018-06-20] MEDS: hydroCHLOROthiazide 25 MG Tablet PO SCH (11:53)
[2018-06-20] MEDS: Senna/Docusate Sodium 8.6/50 MG Tablet PO SCH (11:53)
[2018-06-20] MEDS: Enoxaparin Inj 30 MG/0.3 ML Syringe SQ SCH (11:53)
[2018-06-20 12:56] VITALS: BP 130/83; PULSE 84; RESP 16; TEMP 97.9; O2SAT 100
== END 2018-06-20 14:40 | disposition home health service (06) | DRG 519 ==
LOC: HSDC 05:42 → HSDI 12:34 → N05 18:41
PROVIDERS: ADMIT Neurological Surgery; ATTEND Neurological Surgery
CPT/HCPCS: 72020; 72158; 76000; 76937; 80048; 82040; 85025; 93005; 94150; 97110; 97116; 97161; A9585; C9290; J0131; J1100; J1170; J1580; J1650; J2060; J2250; J2270; J2370; J2405; J2704; J2710; J3010; J3370; J3480; J7030; J7050; J7120; L0484; L0560; L0565